=== PATIENT | female | born 1935 | race Caucasian/White ===

== ENCOUNTER 2020-02-25 11:18 | Outpatient (CLI) | payer MEDICARE, SELFPAY ==
--- NOTE | 2020-02-25 11:36 | ECG_ITS ---
NAME OF STUDY: LEXISCAN SESTAMIBI STRESS TEST INDICATION: Chest Pain LEXISCAN STRESS TEST ORDERING PHYSICIAN: Unknown CLINICAL INFORMATION: Unknown INTERPRETATION: 1. The patient was brought to the laboratory where Lexiscan was infused over 20 seconds. The resting blood pressure was 149/72. Maximum blood pressure was 149/72. The resting heart rate was 59 beats per minute. The maximum heart rate is 90 beats per minute. 2. The baseline electrocardiogram reveals sinus rhythm with lack of R waves in leads V1 through V4 and mild left axis deviation 3. With Lexiscan infusion, there were no ST segment changes to suggest ischemia. 4. The patient experienced no symptoms or arrhythmias during the examination. CONCLUSION: 1. Unremarkable Lexiscan infusion. 2. Nuclear imaging to follow. Electronically Signed On 02-25-2020 18:15:14 CDT by Jerome Cook M.D. [id number]
--- NOTE | 2020-02-25 11:36 | NMCV_ITS ---
NM eliz perf SPECT r/s* [id number] Abida So Age: 84 Gender: F : 1935 Exam Date: 02/25/2020 12:35 Ordering Phys: Jovany Loaiza PA-C XX Technologist: TEMI Sanchez Exam Location: [facility] Indications: weakness, HTN, abnormal EKG STRESS TEST Please see separate stress test report in [facility] for full findings IMAGE PROTOCOL Rest/Stress 1 Lexiscan Day Radiopharmaceutical Dose (mCi) Administration Site Administered by Rest: Tc-99m 10.9 IV TEMI Brown Sestamibi Stress:Tc-99m 32.3 IV TEMI Sanchez Sestamijami Rest: 25-Feb-2020 60 Discovery 630 Stress: 25-Feb-2020 45 Discovery 630 0.4mg Lexiscan. Images obtained in supine and prone position. SPECT RESULTS Technical Quality: Good Raw Data Analysis: Normal Image Corrections: Patient motion artifact - partial motion correction applied to prone images Summed Stress Score: 0 Summed Rest Score: 0 Summed Difference Score: 0 PERFUSION FINDINGS SPECT images demonstrate homogeneous tracer distribution throughout the myocardium. FUNCTIONAL RESULTS (calculated via Gated SPECT) Stress Image LV EF (%): 81 Stress EDV (mL):52 TID: 1.04 Stress ESV (mL):10 Rest Image LV EF (%): 81 FUNCTIONAL FINDINGS: There is normal left ventricular systolic function. IMPRESSIONS Myocardial perfusion imaging is normal and low probability for obstructive coronary disease. EKG segment will be documented separately John Pinto MD (Electronically Signed) Final Date: 25 Feb 2020 16:57 S
[2020-02-25 11:40] VITALS: BMI 17.6
--- NOTE | 2020-02-25 13:32 | SUR.PREOP ---
Patient reports no pain or discomfort prior to the start of the procedure.
[2020-02-25] MEDS: regadenoson 0.4 Mg/5 ml Syringe IVP (13:33)
[2020-02-25 13:41] VITALS: BP 146/62; PULSE 89
== END 2020-02-25 11:19 | disposition home or self-care (01) ==
LOC: RAD 11:23
PROVIDERS: PCP Physician Assistant Medical; Visit Provider Physician Assistant Medical
DX: R94.31 Abnormal electrocardiogram [ECG] [EKG] (principal); I10 Essential (primary) hypertension; E78.2 Mixed hyperlipidemia; R53.1 Weakness
CPT/HCPCS: 78452; 93017; A9500; J2785

== ENCOUNTER → 2020-03-05 15:15 | Outpatient (BNVA) | payer MEDICARE, SELFPAY | PROVIDERS: PCP Physician Assistant Medical; Visit Provider Obstetrics & Gynecology | DX: N39.0 Urinary tract infection, site not specified (principal); T83.718A Erosion of other implanted mesh to organ or tissue, initial encounter; X58.XXXA Exposure to other specified factors, initial encounter | CPT/HCPCS: 80053; 81000; 87077; 87086; 87186 ==

== ENCOUNTER → 2020-03-10 13:17 | Outpatient (BNVA) | payer MEDICARE, SELFPAY | PROVIDERS: PCP Physician Assistant Medical; Visit Provider Urology | DX: R33.8 Other retention of urine (principal); N30.80 Other cystitis without hematuria; N81.10 Cystocele, unspecified; T83.718A Erosion of other implanted mesh to organ or tissue, initial encounter; X58.XXXA Exposure to other specified factors, initial encounter; F17.210 Nicotine dependence, cigarettes, uncomplicated | CPT/HCPCS: 81001 ==

== ENCOUNTER 2020-03-31 09:41 | Observation (INO) | payer MEDICARE, SELFPAY ==
[2020-03-22 11:11] VITALS: BMI 15.6
--- NOTE | 2020-03-22 11:14 | ECG_ITS ---
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 Measurements Intervals [place] Rate: 68 P: 71 SD: 187 QRS: -57 QRSD: 78 T: 51 QT: 377 QTc: 401 Interpretive Statements SINUS RHYTHM LEFT ANTERIOR FASCICULAR BLOCK [QRS AXIS <= -45, QR IN I, RS IN II] SEPTAL MYOCARDIAL INFARCTION [40+ ms Q WAVE IN V1/V2], OF INDETERMINATE AGE No previous ECG available for comparison Electronically Signed On 03-22-2020 18:36:31 CDT by Leanna Casper M.D. [id number]
[2020-03-22 11:50] LABS: Basophils % 0.3 %; Eosinophils # 0.1 10^3/uL (0.0-0.8); Eosinophils % 0.6 %; Hematocrit 46.2 % (37.0-47.0); Hemoglobin 14.7 g/dL (11.5-15.3); Lymphocytes % 10.8 %; Mean Corpuscular HGB Conc 31.8 g/dL (30.0-36.0); Mean Corpuscular Hemoglobin 29.7 pg (28.0-34.0); Mean Corpuscular Volume 93.3 fL (81-99); Mean Platelet Volume 11.4 fL (7.4-10.4); Monocytes # 0.6 10^3/uL (0.2-0.9); Monocytes % 6.5 %; Neutrophils # 7.8 10^3/uL (1.8-7.7); Neutrophils % 81.4 %; Nucleated Red Blood Cells % 0 %; Platelet Count 230 10^3/cmm (130-400); Red Blood Count 4.95 10^6/uL (4.1-5.3); Red Cell Distribution Width 13.4 % (12.1-15.1); White Blood Count 9.5 10^3/uL (4.0-10.0)
[2020-03-22 11:59] LABS: Blood Urine 2+ (Negative); Glucose Urine UA Norm (Normal); Ketones Urine Negative (Negative); Protein Urine Neg (Negative); Specific Gravity, Urine 1.015 (1.005-1.030); Urine Appearance Clear (CLEAR); Urine Color Yellow (Yellow); pH Urine 6 (5-7)
[2020-03-22 12:00] LABS: Add Urine Microscopic? YES; Bilirubin Urine Neg (NEGATIVE); Leukocyte Esterase Urine Negative (Negative); Nitrate Urine Negative (Negative); Urobilinogen Urine Norm (Negative)
[2020-03-22 12:01] LABS: Add Urine Culture? No; Bacteria Urine 1+; RBC Urine 0-4 /hpf (0-2); Squamous Epithelial Cell Urine 0-4 (0-5)
[2020-03-22 12:04] LABS: Alanine Aminotransferase 32 U/L (0-33); Albumin Level 4.1 g/dL (3.5-5.2); Alkaline Phosphatase 77 IU/L (35-105); Anion Gap 15.4 (5-19); Aspartate Amino Transferase 30 U/L (0-32); Blood Urea Nitrogen 15 mg/dL (8-23); Calcium 9.5 mg/dL (8.5-10.5); Carbon Dioxide 28 mmol/L (22-29); Chloride 100 mmol/L (98-107); Creatinine Clr Calc Pharmacy 38.1535; Globulin 3.5 g/dL (1.3-4.6); Glucose 101 mg/dL (65-115); Osmolality Calculated 284 mOsm/kg (285-295); Potassium 4.4 mmol/L (3.5-5.1); Sodium 139 mmol/L (136-145); Total Bilirubin 0.4 mg/dL (0.15-1.2); Total Protein 7.6 g/dL (6.6-8.7)
--- NOTE | 2020-03-22 12:18 | P.ANESASSM_ITS ---
Pre-Anesthetic Assessment Pre-Anesthetic Assessment: Height/Weight: Height 1.7 m Weight 45.359 kg Preop Diagnosis: Vaginal mesh erosion Proposed Procedure: Operation Date: 03/24/20 07:00 Proposed Procedures p Bladder mesh excision and repair with allograft [id number] 53091 T83.718A N39.0 N81.10(Not Applicable) - Manolo Smalls MD s Anterior Repair with Midurethral single incision sling(Not Applicable) - Manolo Smalls MD Social: Social History: Tobacco and No alcohol Exam: Pre-Anes Outpt Exam: alert, oriented x 3, clear to auscultation bilaterally and regular rate & rhythm Airway: Submandibular: WNL Cervical ROM: Other (limited) MP: 2 Dentition: False (upper and lower) History/ROS: No significant history except as noted Pulmonary: Pulmonary: SANTILLAN CV/HEM: CV/HEM: HTN : : UTI Hepatic: Hepatic: None reported GI: GI: None reported Metabolic: Metabolic: Thyroid Musc/skel: Musc/skel: Weakness (gen) Neuropsych: Neuropsych: None reported Anesthetic Plan: ASA status: 3 Anesthesia: Anesthesia Evaluation and General Risk of > 500 ml blood loss (7ml/kg in children): Yes, adequate IV access and fluids planned PFSH Anesthesia PFSH: Medical History Chronic UTI Cystitis cystica Family History Sister Lung cancer Hypertension Stroke Thyroid condition Brother Hypertension Stroke Denies family history of Diabetes Clotting disorder Hyperlipidemia Anesthesia complication Bleeding disorder Social History Smoking and tobacco status: current every day smoker cigarettes Packs smoked per day: 0.5 Alcohol intake: never Substance/Drug Use: never Marital status: / Current occupational status: retired Data Anesthesia CBC & Chem 7: 03/22/20 11:30 03/22/20 11:30 Other Labs: Laboratory Results - last 48 hr 03/22/20 03/22/20 03/22/20 11:30 11:30 11:30 WBC 9.5 RBC 4.95 Hgb 14.7 Hct 46.2 MCV 93.3 MCH 29.7 MCHC 31.8 RDW 13.4 Plt Count 230 MPV 11.4 H Neut % (Auto) 81.4 Lymph % (Auto) 10.8 [place] % (Auto) 6.5 Eos % (Auto) 0.6 Baso % (Auto) 0.3 Neut # (Auto) 7.8 H Lymph # (Auto) 1.0 [place] # (Auto) 0.6 Eos # (Auto) 0.1 Baso # (Auto) 0.0 Nucleated RBC % (auto) 0 Nucleated RBCs # 0.0 Sodium 139 Potassium 4.4 Chloride 100 Carbon Dioxide 28 Anion Gap 15.4 BUN 15 Creatinine 0.8 Glucose 101 Calculated Osmolality 284 L Calcium 9.5 Total Bilirubin 0.4 AST 30 ALT 32 Alkaline Phosphatase 77 Total Protein 7.6 Albumin 4.1 Globulin 3.5 Urine Color Yellow Urine Appearance Clear Urine pH 6 Ur Specific [place] 1.015 Urine Protein Neg Urine Glucose (UA) Norm Urine Ketones Negative Urine Blood 2+ H Urine Nitrate Negative Urine Bilirubin Neg Urine Urobilinogen Norm Ur Leukocyte Esterase Negative Urine RBC 0-4 H Urine WBC 5-10 H Ur Squamous Epith Cells 0-4 H Urine Bacteria 1+ H Cardiac Studies: No Data to Display
--- NOTE | 2020-03-22 12:37 | XR_ITS ---
WS: [id number] CHEST 2 VIEWS HISTORY: RESIDENTIAL SMOKER - PREOP COMPARISON: 01/04/2009 Lungs: Marked emphysema and hyperexpansion. Mild biapical pleural thickening. No pneumonia. No pleura l effusion or pneumothorax. Cardiac size: Normal. Mediastinum/Aorta: Mild atherosclerosis aorta. Bones: Osteopenia with increase in thoracic kyphosis. XR/XR chest 2V* 07662 IMPRESSION: Severe chronic emphysema. Partially calcified aorta.
[2020-03-22 13:49] LABS: Thyroid Stimulating Hormone 4.49 uIU/mL (0.27-4.20)
--- NOTE | 2020-03-24 06:15 | PC.NURSE ---
03/24/20 called patient at 0610 patient stated that she was told that insurance had not pre approved the procedure. Patient stated that she was hoping to have the surgery the following week once insurance approved the procedure. OR was informed of the cancellation and Dr. Smalls was informed as well.
[2020-03-31] VITALS (18 sets, daily range): BP systolic 102–141; BP diastolic 42–67; PULSE 50–86; RESP 16–22; TEMP 36.2–37.7; O2SAT 89–99
--- NOTE | 2020-03-31 06:39 | P.ANESUD_ITS ---
Pre-Anesthetic Update Pre-Anesthetic Assessment: Date of Surgery/Procedure: 03/31/20 Preop Sabrina gnosis: Vaginal mesh erosion Proposed Procedure: Operation Date: 03/31/20 07:00 Proposed Procedures p Bladder mesh excision and repair with allograft [id number] 54811 T83.718A N39.0 N81.10(Not Applicable) - Manolo Smalls MD s Anterior Repair with Midurethral single incision sling(Not Applicable) - Amna Smalls MD Any changes to Pre-Anesthetic Assessment?: No Last Intake: Intake Last Liquid Date 03/30/20 Last Liquid Time 19:30 Last Solid Date 03/30/20 Last Solid Time 19:30 Vitals: Temperature 99.1 F 03/31/20 06:20 Temperature Source Temporal Artery S can 03/31/20 06:20 Pulse Rate 69 03/31/20 06:20 Respiratory Rate 16 03/31/20 06:20 Blood Pressure 141/67 03/31/20 06:20 Blood Pressure Sobeida n 91 03/31/20 06:20 Pulse Oximetry 93 03/31/20 06:20 Oxygen Delivery Me thod 03/31/20 06:20 Exam: Pre-Anes Outpt Exam: alert, oriented x 3, clear to auscultation bilaterally and regular rate & rhythm Cardiac Studies: No Data to Display
[2020-03-31] MEDS: sodium chloride 0.9% 1,000 ML 30 ML IV (06:41)
--- NOTE | 2020-03-31 06:43 | W.PM.OPSUD ---
Surgery/Procedure H&P Update DATE OF PROCEDURE: March 31, 2020 DATE H&P PERFORMED: 03/22/20 H&P UPDATE INFORMATION: I have reviewed H&P completed within last 30 days, I have examined patient prior to procedure and No changes to prior documentation PREOP DIAGNOSIS: Vaginal mesh erosion PLANNED PROCEDURE: Operation Date: 03/31/20 07:00 Proposed Procedures p Bladder mesh excision and repair with allograft [id number] 83302 T83.718A N39.0 N81.10(Not Applicable) - Manolo Smalls MD s Anterior Repair with Midurethral single incision sling(Not Applicable) - Manolo Smalls MD
[2020-03-31] MEDS: scopolamine 1.5 Patch 1 PATCH TRANSDERMA (06:45)
[2020-03-31] MEDS: vancomycin 1,000 MG in sodium chloride 0.9% 250 ML 250 MG IV (06:46)
[2020-03-31] MEDS: estrogens Conjugated Cream 30 gm 1 APPLIC VAGINAL (08:47)
--- NOTE | 2020-03-31 09:08 | P.OP_ITS ---
Operative Report Date of procedure: March 31, 2020 Pre-op Diagnosis: Vaginal mesh erosion Post-op diagnosis: same Post-op Findings: mid urethral sling erosion, cystocele stage I Procedure Done: Mesh erosion excision, anterior colporrhaphy augmented with allograft. Specimens removed/disposition: none Surgeon: Manolo Smalls Anesthesia: General Estimated blood loss (mL): 10 IV fluids (mL): 900 Findings: mesh erosion Condition: stable Disposition: PACU Brief History: 84 y/o female with recurrent uti, and siing mesh erosion. Procedure: After obtaining informed consent, the patient was taken to the operating room and placed in the supine position, given general anesthesia, and prepped and draped in sterile fashion. The abdomen, vulva and vagina were prepped and draped in a sterile manner. A time out procedure was performed. The vaginal mucosa was then injected in the midline with normal saline. The anterior vaginal mucosa beneath the midurethra was infiltrated with 0.5% Marcaine with epinephrine. The erode mesh was disected of the mucosa carefuly beneath the midurethra, nearly 1.5 cm length. Careful submucosal dissection was performed bilaterally and the exposed/erode sling mesh was excised. Then the mucose was reaproximated and closed with 2-0 Vicryl. The vaginal mucosa was scored in the midline with the Bovie approximately 1 cm medial to the urethral meatus to 1 cm distal to the vaginal cuff. This vaginal mucosa was then undermined and then incised in the midline with the Metzenbaum scissors. The lateral aspects of the vaginal mucosa were then grasped with the Allis clamps and the vaginal mucosa was then dissected off the underlying fascia with the Metzenbaum scissors. Again, there was noted to be quite a bit of oozing at the incision, which was controlled with cautery. After adequate dissection was performed, bilaterally. The allograt was modified at time of application to fit spacea,3 x 4 cm piece . The allograft placed in front of cystocele and over area of excised erode mesh and implanted with the Basement Membrane facing the vagina mucosa. Suture is placed at distal end of graft and placed towards vaginal cuff. Final suture is placed on proximal portion of the graft to complete the placement overlying the bladder. Then Interrupted vertical mattress sutures of 0 Vicryl were used to elevate the cystocele superiorly. The excessive vaginal mucosa was then trimmed with the Metzenbaum scissors and the vaginal muc estela was then reapproximated in the running interlocking fashion with 2-0 Vicryl. A vaginal pack is placed overnight as postoperative support for the vaginal tissues after graft placement and closure of vaginal incisions. Sponge, lap, needle, and instrument counts were correct times three. The patient was taken to the recovery room, awake and in stable condition.
[2020-03-31] MEDS: ketorolac 30 mg/mL INJ IVP ×3 (11:03→22:01)
[2020-03-31] MEDS: dextrose 5%-lactated ringers 1,000 ML 125 ML IV ×2 (11:03→18:09)
[2020-03-31] MEDS: nitrofurantoin SR (BID) 100 mg Capsule PO (18:09)
[2020-03-31] MEDS: docusate sodium 100 mg Capsule PO (18:09)
[2020-04-01 04:00] VITALS: BP 108/57; PULSE 57; RESP 18; TEMP 36.7; O2SAT 93
[2020-04-01] MEDS: dextrose 5%-lactated ringers 1,000 ML 125 ML IV (04:02)
[2020-04-01] MEDS: ketorolac 30 mg/mL INJ IVP (04:22)
[2020-04-01 04:51] LABS: Hematocrit 35.7 % (37.0-47.0); Hemoglobin 11.3 g/dL (11.5-15.3); Mean Corpuscular HGB Conc 31.7 g/dL (30.0-36.0); Mean Corpuscular Hemoglobin 30.3 pg (28.0-34.0); Mean Corpuscular Volume 95.7 fL (81-99); Mean Platelet Volume 11.8 fL (7.4-10.4); Platelet Count 176 10^3/cmm (130-400); Red Blood Count 3.73 10^6/uL (4.1-5.3); Red Cell Distribution Width 13.6 % (12.1-15.1); White Blood Count 8.1 10^3/uL (4.0-10.0)
[2020-04-01 07:12] VITALS: BP 116/60; PULSE 60; RESP 18; TEMP 36.6; O2SAT 93
[2020-04-01] MEDS: levothyroxine 100 mcg Tablet PO (08:16)
[2020-04-01] MEDS: nitrofurantoin SR (BID) 100 mg Capsule PO (08:16)
[2020-04-01] MEDS: polyethylene glycol 3350 Pkt 17 gm PO (08:16)
[2020-04-01] MEDS: docusate sodium 100 mg Capsule PO (08:16)
--- NOTE | 2020-04-01 09:29 | P.DS_ITS ---
Discharge Providers INFRASTRUCTURE TECHNICIAN Date of Admission: 03/31/20 09:41 Date of Discharge: 04/01/20 Attending Provider at Admission: Manolo Smalls MD Attending Provider at Discharge: Manolo Smalls MD Primary Care Provider: Jovany Loaiza Diagnoses at Discharge Discharge Diagnosis (1) Eroded bladder suspension mesh: Status: Acute Problem details: No evidence of bladder involvement on cystoscopy March 2020. Status post anterior colporrhaphy augmented with allograft and eroded sling mesh excision postoperative day 1. Qualifiers: Encounter type: initial encounter Qualified Code(s): T83.718A - Erosion of other implanted mesh to organ or tissue, initial encounter (2) Chronic UTI: Status: Acute (3) Pelvic organ prolapse quantification stage 1 cystocele: Status: Acute Reason for Visit Reason for Visit: Bladder Mesh Erosion, Recurrent UTI, Bladder Prola Hospital Course Hospital Course: 84-year-old female admitted for an anterior colporrhaphy and excision of eroded sling mesh. Anterior colporrhaphy and excision of eroded mesh was performed without complication. Overnight observation uneventful. She is afebrile and hemodynamically stable. PVR within normal limits. Physical Exam Narrative: EXAM NARRATIVE: GA: Alert and oriented ?3. HEENT: WNL. Heart: Regular rate and rhythm. Lungs: Clear to auscultation bilaterally. Abdomen: Bowel sounds present, nontender, minimal tenderness, incision clean and dry, no redness, pain or edema. 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 Extremities: No edema, no cyanosis, no calves pain. Urinary Catheter Management^: [place]: Cath Placed During This Visit: yes, but has since been removed by the nurse Reason for Continuing Indwelling Catheter: Decision to DC Catheter Urinary Catheter Date of Insertion: 03/31/20 Urinary Catheter Time of Insertion: 07:30 Date Urinary Catheter Removed: 04/01/20 Time Urinary Catheter Discontinued: 06:20 Discharge Data Data Completed and Pending: Completed Studies During Hospitalization Category Date Time Status XR chest 2V* 7104 6 Routine Exams 03/22/20 12:37 Completed Labs from last 24 hours 04/01/20 04:18 WBC 8.1 RBC 3.73 L Hgb 11.3 L Hct 35.7 L MCV 95.7 MCH 30.3 MCHC 31.7 RDW 13.6 Plt Count 176 MPV 11.8 H Vitals: Last Vital Signs Temp 97.9 F 04/01/20 07:12 Pulse 60 04/01/20 07:12 Resp 18 04/01/20 07:12 BP 116/60 04/01/20 07:12 Pulse Ox 93 04/01/20 07:12 Discharge Plan Discharge Patient Disposition: Home, Self-Care Condition: Stable Prescriptions: New ibuprofen 600 mg tablet 600 mg PO Q6H PRN (Reason: fever or pain) Qty: 30 RF: 0 Continued losartan 100 mg tablet 100 mg PO BEDTIME RF: 0 amlodipine 5 mg tablet 5 mg PO BEDTIME RF: 0 levothyroxine [Euthyrox] 75 mcg tablet 100 mcg PO DAILY RF: 0 nitrofurantoin monohyd/m-cryst [Macrobid] 100 mg capsule 100 mg PO BID 12 Days Qty: 60 RF: 2 Miralax 17 gram Powder In Packet 17 g PO DAILY RF: 0 Discharge Orders: Discharge Order (Routine); Ordered 04/01/20 Ordered By: Manolo Smalls Referrals: Manolo Smalls MD [Physician] - 2 weeks Discharge Diet: Regular Discharge Activity: Increase activity as tolerated Patient Instructions: Anterior Vaginal Repair (DC), Bladder Sling Procedures (DC) Activity Restrictions/Additional Instructions: POST-OPERATIVE INSTRUCTIONS FOR VAGINAL PROLAPSE, RECONSTRUCTION AND SLING SURGERY 1. You have just had vaginal surgery for prolapse and reconstruction. It is common to experience vaginal bleeding or spotting and even difficulty in urinary stream or bowel movements for a short period of time. 2. Try to void by the clock every two to three hours (timed voiding) for the next few weeks, and avoid letting your bladder get over distended. 3. Avoid constipation. Stool softeners and fiber twice a day are good ways to minimize constipation and reduce pelvic pain and inflammation. 4. Sitz baths (hot salt water baths) once or twice daily can be used to aid in the vaginal and pelvic discomfort. You can readily obtain a Sitz bath that will sit in your toilet at home at any large pharmacy or medical supply house. 5. Other than the Sitz.bath, nothing inside the vagina. No intercourse until Dr. Smalls performs a follow up exam. 6. No heavy lifting (anything heavier than the phone book) for two to four weeks after the operation. 7. It is very common to have a suprapubic tube inserted to help drain the bladder and help with bladder training after major vaginal or pelvic reconstruction. If you have a suprapubic tube, please refer to the instruction sheet for suprapubic tube care. 8. After discharge from the hospital Dr. Smalls will need to see you for a limited pelvic exam and urine check roughly two to three weeks after the operati on. At this visit, if things look well, some restrictions may be lifted and you will be able to drive and get back to limited physical activity. Many women will need to take a full six weeks off from their jobs or any heavy physical activity until the vaginal area is completed healed. After the first postoperative' visit, Dr. Smalls will then make another appointment to see you four to six weeks after the first visit (roughly two months after the operation) and if complete healing has occurred, unrestricted physical activity, intercourse, swimming and heavy lifting may be undertaken. 9. Remember: itching is very common in the healing phase, and may not necessarily indicate a vaginal infection (such as a yeast infection). For any questions regarding post-operative care, or any concerns that arise, please contact the office Discharge Attestations INFRASTRUCTURE TECHNICIAN Time Spent in Discharge Care*: greater than 30 min Specific Discharge Activities: Specific discharge activities: educating patient Time Spent in Smoking Cessation: Time spent discussing smoking cessation with patient: 3 to 10 minutes Details of Smoking Cessation Education: Patient was counseled regarding smoking cessation, the effect of smoking on healing after surgery and general health. She was informed of the free smoking cessation classes available at [facility] [place] Coding Level of Care Code Acute Cashier Payments Received for Guanako Lemon Diagnoses Eroded bladder suspension mesh T83.718A Encounter type: initial encounter Chronic UTI N39.0 Pelvic organ prolapse quantification stage 1 cystocele N81.10
--- NOTE | 2020-04-01 10:37 | PC.CHAP ---
Pastoral Care Encounter/Spiritual Assessment Type of Contact [] Declined catering staff member visit [] Patient/Family/Request visit [] Outpatient visit [] Follow-up visit [] Physician referral [] Code/Alert [x] Routine visit [] Staff referral [] Actively dying [] Patient sleeping [] Family support [] [] Out of room [] Palliative care [] [] Receiving care in room [] Pre-surgical visit [] Trauma [] Long length of stay [] ICU visit [] Other: Relational/Emotional Strength [x] Patient feels connected with others/family/visitors/staff [] Distress [] Loneliness/isolation [] Abandonment Spirituality of Patient [x] Person of Demetra [] Attends Temple of their [place] [x] Believes in Prayer [] Reads Bible or Spiritism materials [] There are Spiritual issues to be addressed Set Making Machine Operator Interventions [x] Prayer [x] Active listening [x] Non-anxious presence [x] Spiritual/emotional support [] Crisis/trauma care [] Spiritual counseling [] Bereavement support [] Provided bereavement packet [] Provided Bible/devotional materials [] Provided toy/stuffed animal, coloring book to patient or family member [] Provided Communion [] Anointing/[place] [] Salvation [x] Completed spiritual assessment [] Other: Impact on Illness or Injury [] Angry [] Fearful [] Anxious [] Often cries [] Exhaustion [] Unable to work [] Unable to attend restorationist [] Unable to walk/stand [] Unable to read [] Unable to drive [] Unable to eat/drink [] Unable to sleep [] Unable to be with family [] Patient intubated [x] Other: Summary Patient is unable to attend fellowship with the religious, but does biblical study thru Dr. Shelton Leon on tv. Time spent with patient 10 minutes
[2020-04-01 11:29] VITALS: BP 118/62; PULSE 64; RESP 20; TEMP 36.4; O2SAT 95
--- NOTE | 2020-04-01 11:53 | PC.NURSE ---
1115 WENT OVER HOME CARE INSTRUCTIONS WITH PATIENT AND TOLD HER TO LET US KNOW WHEN HER RIDE WAS HERE AND WE WILL HELP TAKE HER OUT. WAS TOLD BY OTHER NURSING STAFF THAT WE DID NOT HAVE TO TAKE ANY VITALS PRIOR TO DISCHARGE.
[2020-04-01 12:50] VITALS: BP 118/62; PULSE 64; RESP 20; TEMP 36.4; O2SAT 95
== END 2020-04-01 12:51 | disposition home or self-care (01) ==
LOC: MEDSURG 09:42
PROVIDERS: Admitting Provider Obstetrics & Gynecology; PCP Physician Assistant Medical; Visit Provider Obstetrics & Gynecology
PROC: (CPT 57288; principal; 2020-03-31 07:00)
PROC: 0JQC0ZZ Repair Pelvic Region Subcutaneous Tissue and Fascia, Open Approach (ICD-10-PCS; CPT 57240; 2020-03-31 07:00)
DX: T83.711A Erosion of implanted vaginal mesh to surrounding organ or tissue, initial encounter (principal); N39.0 Urinary tract infection, site not specified; N81.10 Cystocele, unspecified; I10 Essential (primary) hypertension; F17.210 Nicotine dependence, cigarettes, uncomplicated
CPT/HCPCS: 57240; 57267; 12345; 36415; 51798; 71046; 80053; 81001; 84443; 85025; 85027; 86850; 86900; 93005; 96361; 96365; 96375; C1762; G0378; J1885; J2001; J2405; J2704; J3010; J3370; J3490; J7030; J7050

== ENCOUNTER → 2020-05-11 13:49 | Outpatient (BNVA) | payer MEDICARE, SELFPAY | PROVIDERS: PCP Physician Assistant Medical; Visit Provider Urology | DX: N39.0 Urinary tract infection, site not specified | CPT/HCPCS: 81001 ==

== ENCOUNTER → 2020-07-30 14:08 | Outpatient (BNVA) | payer MEDICARE, SELFPAY | PROVIDERS: PCP Physician Assistant Medical; Visit Provider Obstetrics & Gynecology | DX: Z11.59 Encounter for screening for other viral diseases (principal) | CPT/HCPCS: 87635 ==

== ENCOUNTER 2020-08-04 07:14 | Day surgery (SDC) | payer MEDICARE, SELFPAY ==
--- NOTE | 2020-08-02 09:41 | ANES.PREANE2 ---
Pre-Anesthetic Assessment Pre-Anesthetic Assessment: Height/Weight: Height 1.7 m Preop Diagnosis: Vaginal mesh erosion Proposed Procedure: Operation Date: 08/04/20 09:10 Proposed Procedures p Vaginal Sling Revision 52413 T83.718(Not Applicable) - Manolo Smalls MD Familial anesthetic complications: None Social: Social History: Tobacco Exam: Pre-Anes Outpt Exam: alert, oriented x 3, clear to auscultation bilaterally and regular rate & rhythm Airway: MP: 2 Dentition: False Pulmonary: Pulmonary: SANTILLAN and Sleep apnea (O2 at night 2 L NC) Comments: sinus allergies CV/HEM: CV/HEM: HTN : Comments: Chronic UTI Metabolic: Metabolic: Thyroid Musc/skel: Comments: weakness and is in wheelchair, but can walk at her house Anesthetic Plan: ASA status: 3 Anesthesia: General Risk of > 500 ml blood loss (7ml/kg in children): No PFSH Anesthesia PFSH: Medical History (Updated 08/02/20 @ 10:47 by Manolo Smalls MD) Aftercare following surgery of the genitourinary system Chronic UTI Cystitis cystica Family History Sister Lung cancer Hypertension Stroke Thyroid condition Brother Hypertension Stroke Mother , at age 95 No problems noted. Father , at age 32 Drowning Denies family history of Diabetes Clotting disorder Hyperlipidemia Anesthesia complication Bleeding disorder Social History (Updated 08/02/20 @ 09:27 by Swetha Lunsford, RN) Smoking and tobacco status: current every day smoker cigarettes Packs smoked per day: 0.5 Alcohol intake: never Substance/Drug Use: never Data Anesthesia Cardiac Studies: No Data to Display
[2020-08-02 12:10] VITALS: BMI 16.2
[2020-08-02 12:56] LABS: Add Urine Microscopic? NO
[2020-08-02 13:20] LABS: Bilirubin Urine Neg (Negative); Blood Urine Neg (Negative); Glucose Urine UA Norm (Normal); Ketones Urine Negative (Negative); Leukocyte Esterase Urine Negative (Negative); Nitrate Urine Negative (Negative); Protein Urine Neg (Negative); Urine Appearance Clear (CLEAR); Urine Color Yellow (Yellow); Urobilinogen Urine Norm (Negative); pH Urine 6 (5-7)
[2020-08-04] VITALS (10 sets, daily range): BP systolic 102–142; BP diastolic 40–84; PULSE 60–94; RESP 15–20; TEMP 36.1–36.5; O2SAT 91–98
[2020-08-04] MEDS: scopolamine 1.5 Patch 1 PATCH TRANSDERMA (07:39)
[2020-08-04] MEDS: sodium chloride 0.9% 1,000 ML 30 ML IV (07:44)
--- NOTE | 2020-08-04 08:00 | P.ANESUD_ITS ---
Pre-Anesthetic Update Pre-Anesthetic Assessment: Date of Surgery/Procedure: 08/04/20 Preop Sabrina gnosis: Midurethral sling erosion Proposed Procedure: Operation Date: 08/04/20 08:15 Proposed Procedures p Vaginal Sling Revision 35554 T83.718(Not Applicable) - Manolo Smalls MD Any changes to Pre-Anesthetic Assessment?: No Last Intake: Intake Last Liquid Date 08/03/20 Last Liquid Time 22:00 Last Solid Date 08/03/20 Last Solid Time 22:00 Labs Last 48hrs: Laboratory Results - last 48 hr 08/02/20 08/02/20 12:30 12:30 Urine Color Yellow Urine Appearance Clear Urine pH 6 Ur Specific Gravit y 1.010 Urine Protein Neg Urine Glucose (UA) Norm Urine Ketones Negative Urine Blood Neg Urine Nitrate Negative Urine Bilirubin Neg Urine Urobilinogen Norm Ur Leukocyte Daniela ase Negative Blood Type O Negative Rho(D) Type Negative Antibody Screen Negative Vitals: Temperature 97 F L 08/04/20 07:27 Temperature Source Temporal Artery S can 08/04/20 07:27 Pulse Rate 76 08/04/20 07:27 Respiratory Rate 20 H 08/04/20 07:27 Blood Pressure 137/76 08/04/20 07:27 Blood Pressure Sobeida n 96 08/04/20 07:27 Pulse Oximetry 91 08/04/20 07:27 Oxygen Delivery Me thod 08/04/20 07:41 Exam: Pre-Anes Outpt Exam: alert, oriented x 3, clear to auscultation bilaterally and regular rate & rhythm Cardiac Studies: No Data to Display
--- NOTE | 2020-08-04 08:27 | W.PM.OPSUD ---
Surgery/Procedure H&P Update DATE OF PROCEDURE: August 04, 2020 DATE H&P PERFORMED: 08/02/20 H&P UPDATE INFORMATION: I have reviewed H&P completed within last 30 days, I have examined patient prior to procedure and No changes to prior documentation PREOP DIAGNOSIS: Midurethral sling erosion PLANNED PROCEDURE: Operation Date: 08/04/20 08:15 Proposed Procedures p Vaginal Sling Revision 15900 T83.718(Not Applicable) - Manolo Smalls MD
[2020-08-04] MEDS: vancomycin 1,000 MG in sodium chloride 0.9% 250 ML IV (08:43)
--- NOTE | 2020-08-04 10:34 | PM.OP ---
Operative Report Date of procedure: August 04, 2020 Pre-op Diagnosis: Midurethral sling exposure Post-op diagnosis: same Post-op Findings: Midurethral sling exposure Implants: colpoplast allograft Surgeon: Manolo Smalls M.D. Anesthesia: General Estimated blood loss (mL): 10 IV fluids (mL): 300 Urine output (mL): 100 Complications: none Condition: stable Disposition: PACU Brief History: 84-year-old female with mid urethral exposure due to poor healing after repair of previous exposure. Procedure: After obtaining informed consent, the patient was taken to the operating room and placed in the supine position, given general anesthesia, and prepped and draped in sterile fashion. The abdomen, vulva and vagina were prepped and draped in a sterile manner. A time out procedure was performed. The vaginal mucosa was then injected in the midline with normal saline. The vaginal mucosa defect in the exposed urethral sling was then undermined with the Metzenbaum scissors. The lateral aspects of the vaginal mucosa were then grasped with the Allis clamps and the vaginal mucosa was then dissected off the underlying fascia with the Metzenbaum scissors. After adequate dissection was performed, bilaterally. A Colpoplast allograft was modified at time of application to fit spacea,2 x 2 cm piece . Colpoplast allograft placed in front of mid urethral sling. Suture is placed at distal end of graft and placed overlaid on the sling mesh. Final suture is placed on proximal portion of the graft to complete the placement overlying the defect. Then the vaginal mucosa was then reapproximated in the running interlocking fashion with 2-0 Vicryl. Then the Brewster catheter was removed and cystoscope was inserted. The bladder was filled with sterile water. Complete evaluation of the bladder mucosa was performed noting no lacerations, dimpling, tears, bleeding of the mucosa or muscular layers. Both ureteral orifices were identified. Prompt excretion of urine from both ureteral orifices was noted. Cystoscope was withdrawn. The Brewster catheter was replaced. Excellent hemostasis was obtained. Sponge, lap, needle, and instrument counts were correct times three. tolerated the procedure well and was taken to the recovery room in stable conditions.
--- NOTE | 2020-08-04 10:44 | SUR.PHASEI ---
1043 PATIENT TO PACU FROM OR. RR EVEN AND UNLABORED. ORAL AIRWAY IN PLACE. SPO2 96% ON RA.
--- NOTE | 2020-08-04 10:47 | SUR.PHASEI ---
1045 ORAL AIRWAY REMOVED. SPO2 95% ON RA.
[2020-08-04] MEDS: ibuprofen 800 mg tablet PO (11:31)
--- NOTE | 2020-08-04 12:47 | PC.NURSE ---
PT DRINKING SODA. UNABLE TO VOID YET. FAMILY AT BEDSIDE. CALL LIGHT IN REACH. RAILS UP.
--- NOTE | 2020-08-04 13:40 | ANE.PACU2 ---
Inpatient post-anesthesia follow up: Airway intact: Yes Vital signs: Temperature 97.1 F Pulse Rate 60 Respiratory Rate 18 Blood Pressure 115/70 Pulse Oximetry 91 Oxygen Delivery Me thod Room Air Oxygen Flow Rate 4 Fraction of Inspir ed Oxygen Hydration adequate: Yes Pain level: 2 Mental status: Baseline
--- NOTE | 2020-08-04 13:44 | PC.NURSE ---
SPOKE WITH DR. WELCH CONCERNING PT NOT VOIDING YET. OK FOR PT TO GO HOME . PT INSTRUCTED TO RETURN TO ER IF UNABLE TO VOID.
== END 2020-08-04 13:44 | disposition home or self-care (01) ==
PROVIDERS: PCP Physician Assistant Medical; Visit Provider Obstetrics & Gynecology
PROC: (CPT 57288; principal; 2020-08-04 08:15)
DX: T83.71 Erosion of implanted mesh and other prosthetic materials to surrounding organ or tissue (principal); Y73.8 Miscellaneous gastroenterology and urology devices associated with adverse incidents, not elsewhere classified; Z90.710 Acquired absence of both cervix and uterus; F17.210 Nicotine dependence, cigarettes, uncomplicated; N30.20 Other chronic cystitis without hematuria
CPT/HCPCS: 57287; 12345; 36415; 81003; 86850; 86900; 96365; C1762; J0131; J2370; J2405; J2704; J3010; J3370; J7030; J7050

== ENCOUNTER → 2020-08-31 13:14 | Outpatient (BNVA) | payer MEDICARE, SELFPAY | PROVIDERS: PCP Physician Assistant Medical; Visit Provider Urology | DX: N30.80 Other cystitis without hematuria (principal) | CPT/HCPCS: 81003 ==

== ENCOUNTER → 2020-10-19 14:11 | Outpatient (BNVA) | payer MEDICARE, SELFPAY | PROVIDERS: PCP Physician Assistant Medical; Visit Provider Urology | DX: N30.80 Other cystitis without hematuria (principal) | CPT/HCPCS: 81003 ==

== ENCOUNTER → 2021-04-20 13:07 | Outpatient (BNVA) | payer MEDICARE, SELFPAY | PROVIDERS: PCP Physician Assistant Medical; Visit Provider Urology | DX: N30.80 Other cystitis without hematuria (principal) | CPT/HCPCS: 81003 ==

== ENCOUNTER 2021-07-22 12:11 | Outpatient (CLI) | payer MEDICARE, SELFPAY ==
--- NOTE | 2021-07-22 12:45 | USCV_ITS ---
Abida So Age: 85 Gender: F : 1935 Exam Date: 07/22/2021 12:41 Ordering Phys: Greg Waller MD (Andy) ([email or web address]) Technologist: ALEJANDRA Exam Location: [facility] Indication: RECHECK ON CCA STENOSIS Risk Factors: Previous Vascular Surgery: Right Brachial BP: / Left Brachial BP: / Right Left Velocity (cm/s) Spectral Plaque Velocity (cm/s) Spectral Plaque Syst/Diast Broadening Syst/Diast Broadening 44.70/ 11.20 Hetro Prox CCA 46.20 / 10.40 Hetro 45.40/ 13.10 Hetro Mid CCA 48.20 / 11.10 Hetro 55.90/ 16.40 Hetro Distal CCA 92.40 / 22.50 Hetro 50.50/ 10.10 Hetro Prox ICA 95.90 / 20.10 Hetro 69.90/ 19.10 Hetro Mid ICA 118.40/ 23.70 Hetro 61.40/ 17.20 Hetro Distal ICA 88.80 / 18.90 Hetro 41.10 Hetro ECA 185.80 1.39 ICA/CCA 2.46 Antegrade Vertebral Antegrade 22.30/ 3.30 cm/s 44.40/ 11.20 cm/s Tri Subclavian Bi 83.40 111.3 0 CONCLUSIONS Right ICA stenosis <50%. Extensive calcified atheromatous plaque right carotid bulb/ICA. Left ICA stenosis <50%. Extensive calcified atheromatous plaque left carotid bulb/ICA. Normal antegrade Doppler flow noted in the right vertebral artery. Normal antegrade Doppler flow noted in the left vertebral artery. Velocities are stable since 2019 Enoch Real MD (Electronically Signed) Final Date: 22 July 2021 15:44 S
== END 2021-07-22 12:12 | disposition home or self-care (01) ==
LOC: RAD 12:14
PROVIDERS: PCP Physician Assistant Medical; Visit Provider Thoracic Surgery (Cardiothoracic Vascular Surgery)
DX: I65.23 Occlusion and stenosis of bilateral carotid arteries (principal)
CPT/HCPCS: 93880

== ENCOUNTER → 2022-02-23 12:41 | Outpatient (BNVA) | payer MEDICARE, SELFPAY | PROVIDERS: PCP Physician Assistant Medical; Visit Provider Nurse Practitioner Family | DX: N30.80 Other cystitis without hematuria (principal); N39.0 Urinary tract infection, site not specified | CPT/HCPCS: 81003; 99213 ==

== ENCOUNTER → 2022-04-17 15:06 | Outpatient (BNVA) | payer MEDICARE, SELFPAY | PROVIDERS: PCP Physician Assistant Medical; Visit Provider Urology | DX: N30.80 Other cystitis without hematuria (principal); T83.711A Erosion of implanted vaginal mesh to surrounding organ or tissue, initial encounter | CPT/HCPCS: 52000; 81003; 99213 ==

== ENCOUNTER 2022-06-04 08:50 | Emergency (ER) | payer MEDICARE, SELFPAY ==
[2022-06-04 08:59] VITALS: BP 145/62; PULSE 71; RESP 15; TEMP 36.6; O2SAT 93; BMI 16.7
--- NOTE | 2022-06-04 09:15 | XRR_ITS ---
PROCEDURE INFORMATION: Exam: XR Chest Exam date and time: 06/04/2022 9:29 AM Age: 86 years old Clinical indication: Cough with hemorrhage; Additional info: Hemoptysis TECHNIQUE: Imaging protocol: Radiologic exam of the chest. Views: 2 views. COMPARISON: CR XR chest 2V* [id number] 03/22/2020 12:46 PM FINDINGS: Lungs: Hyperexpanded lungs with emphysematous changes. No significant airspace consolidation concerning for pneumonia. Minimal biapical pulmonary scarring. Pleural spaces: Small left-sided pleural effusion. Heart/Mediastinum: The cardiomediastinal silhouette is within normal limits. Bones/joints: Exaggerated kyphotic curvature of the thoracic spine. XR/XR chest 2V* [id number] IMPRESSION: 1. Small left-sided pleural effusion. 2. Emphysematous disease.
--- NOTE | 2022-06-04 09:32 | W.ED.GENADLT ---
HPI - General Adult General: Chief complaint: General Medical Stated complaint: Spitting up blood Time Seen by Provider: 06/04/22 09:16 History of Present Illness: 86-year-old female presenting today with hemoptysis. Patient notes that she has a chronic daily cough. Cough is every morning. Is still actively smoking. Noted this morning she was coughing and noted flecks of blood in her cough. Prompting her to come into the ED. She has no new unilateral pain or swelling her lower extremities. She has no history of blood clots. She is not on blood thinners. She has a history of chronic UTIs for which she is on suppressive therapy. She denies fevers or chills. She denies nausea or vomiting. No prior history of similar symptoms. No history of cancer. Review of Systems General: Reports: 10 or more systems reviewed and unremarkable except in HPI and below PFSH ED PFSH: Medical History Aftercare following surgery of the genitourinary system Chronic UTI Cystitis cystica Hypertension Hypothyroidism Recurrent UTI Surgical History H/O bladder repair surgery Mesh erosion excision, anterior colporrhaphy augmented with allograft performed by Dr. Smalls at [facility] on 03/31/2020 H/O: hysterectomy 1978 Family History Sister Lung cancer Hypertension Stroke Thyroid condition Ovarian cancer, Onset Age: 64 Brother Hypertension Stroke Mother , at age 95 No problems noted. Father , at age 32 Drowning Denies family history of Colon cancer Diabetes Clotting disorder Hyperlipidemia Breast cancer Anesthesia complication Bleeding disorder Uterine cancer Social History Smoking and tobacco status: current every day smoker cigarettes Packs smoked per day: 0.5 Alcohol intake: never Household members: spouse Marital status: Current occupational status: retired History of recent travel: No Physical Exam Const: COMMON NORMALS: no acute distress, patient oriented x3 and alert GENERAL APPEARANCE: cooperative ORIENTATION/CONSCIOUSNESS: Yes awake, Yes oriented to person, Yes oriented to place and Yes oriented to time HENMT: COMMON NORMALS: normocephalic, atraumatic, external ears normal, Normal external nose present and moist oral mucous membranes HEAD & SCALP: normal to inspection, normocephalic and atraumatic NOSE: Normal external nose present GENERAL EAR: hearing grossly impaired EXTERNAL EAR: Yes external ears normal Eye: COMMON NORMALS: Equal, round and reactive pupils present, EOMs intact bilaterally, conjunctivae normal and no scleral icterus GENERAL EYE: appearance normal, both eyes and all related structures EYELID: eyelids normal CONJUNCTIVA: Yes conjunctivae normal SCLERA: sclerae normal PUPIL: Yes Equal, round and reactive pupils present Neck/C-Spine: COMMON NORMALS: full ROM, supple and no JVD GENERAL: Yes normal visual inspection Lymph: LYMPHATIC: no lymphadenopathy noted and no lymphedema noted Chest: COMMONS NORMALS: normal inspection of the chest Resp: COMMON NORMALS: normal respiratory effort, No retractions and No use of accessory muscles Cardio: COMMON NORMALS: no JVD, regular rate and regular rhythm RATE: regular rate RHYTHM: regular rhythm GI: COMMON NORMALS: Normal to inspection, nondistended, normoactive bowel sounds present : COMMON NORMALS: Yes no CVA tenderness BLADDER/KIDNEY EXAM: Yes no CVA tenderness Back/Pelvis: COMMON NORMALS: no CVA tenderness and thoracic and lumbar spine normal to inspection Extremity: COMMON NORMALS: normal to inspection, full ROM and capillary refill normal GENERAL: Yes normal exam except as noted Neuro: COMMON NORMALS: patient oriented x3, CN's II-XII intact bilaterally, moves all extremities, no focal motor deficits, no sensory deficits noted and gait normal SENSORIUM/ORIENTATION: Yes alert, Yes oriented to person, Yes oriented to place and Yes oriented to time Psych: COMMON NORMALS: mental status grossly normal, Normal thought process present, cooperative and normal affect THOUGHT PROCESS: Normal thought process present Skin: COMMON NORMALS: no rashes or lesions noted and no wounds GENERAL SKIN EXAM: no rashes or lesions noted Course Vital Signs: Vital signs: Vital Signs Temperature 97.9 F 06/04/22 08:59 Pulse Rate 71 06/04/22 08:59 Respiratory Rate 15 06/04/22 08:59 Blood Pressure 145/62 06/04/22 08:59 Pulse Oximetry 93 06/04/22 08:59 Oxygen Delivery Me thod 06/04/22 08:59 [facility] - General Adult Medical Decision Making 86-year-old female presenting today with hemoptysis. Vitals within normal limits. Chest x-ray without evidence of significant abnormality to suggest lung cancer, pneumonia or other significant abnormalities. CBC and CMP are unremarkable. Vital signs are within normal limits. D-dimer less than 1000. Low suspicion for pulmonary embolism. Suspect hemoptysis secondary to bronchitis. Patient is currently everyday smoker. Patient was given strict return precautions and recommended routine outpatient follow-up. Lab Data : 06/04/22 09:42 06/04/22 09:42 Radiology Impressions Chest X-Ray 06/04/22 09:15 IMPRESSION: 1. Small left-sided pleural effusion. 2. Emphysematous disease. Laboratory Results WBC 9.4 10^3/uL (4.0-10.0) 06/04/22 09:42 RBC 4.80 10^6/uL (4.1-5.3) 06/04/22 09:42 Hgb 14.1 g/dL (11.5-15.3) 06/04/22 09:42 Hct 43.1 % (37.0-47.0) 06/04/22 09:42 MCV 89.8 fl (81-99) 06/04/22 09:42 MCH 29.4 pg (28.0-34.0) 06/04/22 09:42 MCHC 32.7 g/dL (30.0-36.0) 06/04/22 09:42 RDW 14.2 % (12.1-15.1) 06/04/22 09:42 Plt Count 177 10^3/cmm (130-400) 06/04/22 09:42 MPV 12.2 fL (7.4-10.4) H 06/04/22 09:42 Neut % (Auto) 82.8 % 06/04/22 09:42 Lymph % (Auto) 9.4 % 06/04/22 09:42 [place] % (Auto) 5.7 % 06/04/22 09:42 Eos % (Auto) 1.5 % 06/04/22 09:42 Baso % (Auto) 0.4 % 06/04/22 09:42 Neut # (Auto) 7.79 10^3/uL (1.8-7.7) H 06/04/22 09:42 Lymph # (Auto) 0.9 10^3/uL (0.8-4.8) 06/04/22 09:42 [place] # (Auto) 0.5 10^3/uL (0.2-0.9) 06/04/22 09:42 Eos # (Auto) 0.1 10^3/uL (0.0-0.8) 06/04/22 09:42 Baso # (Auto) 0.0 10^3/uL (0.0-0.1) 06/04/22 09:42 Nucleated RBC % (auto) 0 % 06/04/22 09:42 Nucleated RBCs # 0.0 /100WBC 06/04/22 09:42 D-Dimer 0.76 ug/mIFEU (0-0.59) H 06/04/22 09:42 Sodium 139 mmol/L (136-145) 06/04/22 09:42 Potassium 4.2 mmol/L (3.5-5.1) 06/04/22 09:42 Chloride 101 mmol/L (98-107) 06/04/22 09:42 Carbon Dioxide 29 mmol/L (22-29) 06/04/22 09:42 Anion Gap 13.2 (5-19) 06/04/22 09:42 BUN 11 mg/dL (8-23) 06/04/22 09:42 Creatinine 0.6 mg/dL (0.5-0.9) 06/04/22 09:42 GFR Calculation Not Reportable 06/04/22 09:42 Glucose 90 mg/dL (65-115) 06/04/22 09:42 Calculated Osmolality 287 mOsm/kg (285-295) 06/04/22 09:42 Calcium 9.5 mg/dL (8.5-10.5) 06/04/22 09:42 Total Bilirubin 0.8 mg/dL (0.15-1.2) 06/04/22 09:42 AST 21 U/L (0-32) 06/04/22 09:42 ALT 12 U/L (0-33) 06/04/22 09:42 Alkaline Phosphatase 87 U/L (35-105) 06/04/22 09:42 Total Protein 7.2 g/dL (6.6-8.7) 06/04/22 09:42 Albumin 4.5 g/dL (3.5-5.2) 06/04/22 09:42 Globulin 2.7 g/dL (1.3-4.6) 06/04/22 09:42 Discharge Plan Discharge Patient Disposition: Home Clinical Impression: Bronchitis Condition: Stable Prescriptions: New azithromycin [Zithromax Z-Mack] 250 mg tablet See Rx Instructions .ROUTE .COMPLEX Qty: 6 0RF Rx Instructions: For 250 mg dose pack: take 500 mg today (day 1), then 250 mg for 4 days (days 2-5) No Action losartan 100 mg tablet 100 mg PO BEDTIME amlodipine 5 mg tablet 5 mg PO BEDTIME levothyroxine [Euthyrox] 75 mcg tablet 100 mcg PO DAILY acetaminophen [Tylenol] 325 mg tablet 325 mg PO .prn cefdinir 300 mg capsule 300 mg PO BID Qty: 28 1RF methenamine hippurate 1 gram tablet 1 g PO BID Qty: 60 12RF Rx Instructions: Take 1000 mg of vitamin C with each dose of methenamine polyethylene glycol 3350 [Miralax] 17 gram Powder In Packet 17 g PO DAILY Discharge Orders: Discharge ED (Routine); Ordered 06/04/22 Ordered By: Heath Mcdowell Referrals: Jovany Loaiza [Primary Care Provider] - Patient Instructions: Opioid Safety Coding Level of Care Code ED Tool Crib Lead for Myag Fwd Exam Comprehensive
[2022-06-04 09:50] LABS: Hematocrit 43.1 % (37.0-47.0); Hemoglobin 14.1 g/dL (11.5-15.3); Lymphocytes % 9.4 %; Mean Corpuscular HGB Conc 32.7 g/dL (30.0-36.0); Mean Corpuscular Hemoglobin 29.4 pg (28.0-34.0); Mean Corpuscular Volume 89.8 fl (81-99); Mean Platelet Volume 12.2 fL (7.4-10.4); Monocytes % 5.7 %; Neutrophils % 82.8 %; Platelet Count 177 10^3/cmm (130-400); Red Cell Distribution Width 14.2 % (12.1-15.1); White Blood Count 9.4 10^3/uL (4.0-10.0)
[2022-06-04 09:51] LABS: Basophils % 0.4 %; Eosinophils # 0.1 10^3/uL (0.0-0.8); Eosinophils % 1.5 %; Lymphocytes # 0.9 10^3/uL (0.8-4.8); Monocytes # 0.5 10^3/uL (0.2-0.9); Neutrophils # 7.79 10^3/uL (1.8-7.7); Nucleated Red Blood Cells % 0 %
[2022-06-04 10:11] LABS: D Dimer 0.76 ug/mIFEU (0-0.59)
[2022-06-04 10:16] LABS: Alanine Aminotransferase 12 U/L (0-33); Albumin Level 4.5 g/dL (3.5-5.2); Alkaline Phosphatase 87 U/L (35-105); Anion Gap 13.2 (5-19); Aspartate Amino Transferase 21 U/L (0-32); Blood Urea Nitrogen 11 mg/dL (8-23); Calcium 9.5 mg/dL (8.5-10.5); Carbon Dioxide 29 mmol/L (22-29); Chloride 101 mmol/L (98-107); Globulin 2.7 g/dL (1.3-4.6); Glucose 90 mg/dL (65-115); Osmolality Calculated 287 mOsm/kg (285-295); Potassium 4.2 mmol/L (3.5-5.1); Sodium 139 mmol/L (136-145); Total Bilirubin 0.8 mg/dL (0.15-1.2); Total Protein 7.2 g/dL (6.6-8.7)
== END 2022-06-04 10:50 | disposition home or self-care (01) ==
PROVIDERS: Emergency Provider Emergency Medicine; PCP Physician Assistant Medical
DX: J40 Bronchitis, not specified as acute or chronic (principal); F17.210 Nicotine dependence, cigarettes, uncomplicated; I10 Essential (primary) hypertension
CPT/HCPCS: 71046; 80053; 85025; 85378; 99284

== ENCOUNTER 2022-09-20 09:52 | Inpatient (IN) | payer MEDICARE, SELFPAY ==
[2022-09-20] VITALS (58 sets, daily range): BP systolic 116–166; BP diastolic 58–78; PULSE 61–67; RESP 15–19; TEMP 36.8; O2SAT 90–95; BMI 16.9
--- NOTE | 2022-09-20 10:30 | W.ED.GENADLT ---
HPI - General Adult General: Chief complaint: General Medical Stated complaint: coughing up blood Time Seen by Provider: 09/20/22 10:30 History of Present Illness: Mr. So is an 86-year-old lady with history of tobaccoism and likely recurrent bronchitis presenting to the emergency department due to hemoptysis. She reports previous course of similar associated with cough and small amounts of blood that transiently improved with antibiotics and steroids. She does note mild chest discomfort and shortness of breath. Additionally notes lower extremity edema. She has various other concerns which appear more chronic in nature and she follows with urology and various other physicians for GI concerns. No other specific changes in health, exacerbating, or alleviating factors identified. Onset (ago): hour(s) Severity: mild and moderate Exacerbating factors: other Associated symptoms: Reports cough, dyspnea and malaise Review of Systems General: Reports: 10 or more systems reviewed and unremarkable except in HPI and below Const: Reports: malaise Resp: Reports: dyspnea PFSH ED PFSH: Medical History Aftercare following surgery of the genitourinary system Chronic UTI Cystitis cystica Hypertension Hypothyroidism Recurrent UTI Surgical History H/O bladder repair surgery Mesh erosion excision, anterior colporrhaphy augmented with allograft performed by Dr. Smalls at [facility] on 03/31/2020 H/O: hysterectomy 1977 Family History Sister Lung cancer Hypertension Stroke Thyroid condition Ovarian cancer, Onset Age: 64 Brother Hypertension Stroke Mother , at age 95 No problems noted. Father , at age 32 Drowning Denies family history of Colon cancer Diabetes Clotting disorder Hyperlipidemia Breast cancer Anesthesia complication Bleeding disorder Uterine cancer Social History Smoking and tobacco status: current every day smoker cigarettes Packs smoked per day: 0.5 Alcohol intake: never Household members: spouse Marital status: Current occupational status: retired History of recent travel: No Physical Exam Const: COMMON NORMALS: alert GENERAL APPEARANCE: cooperative, well developed and ill appearing HENMT: COMMON NORMALS: normocephalic and atraumatic HEAD & SCALP: normocephalic and atraumatic THROAT: posterior oropharynx normal Eye: COMMON NORMALS: conjunctivae normal CONJUNCTIVA: Yes conjunctivae normal SCLERA: sclerae normal Neck/C-Spine: COMMON NORMALS: supple GENERAL: Yes trachea midline Resp: EFFORT & INSPECTION: Yes able to speak in complete sentences AUSCULTATION: rhonchi Cardio: COMMON NORMALS: regular rate and regular rhythm RATE: regular rate RHYTHM: regular rhythm GI: COMMON NORMALS: Soft to palpation PALPATION: Yes Soft to palpation and No Tenderness to palpation present (GI) Extremity: GENERAL: Yes normal exam except as noted and No edema Neuro: COMMON NORMALS: moves all extremities SENSORIUM/ORIENTATION: Yes alert and No Orientation impaired Psych: COMMON NORMALS: mental status grossly normal and Normal thought process present THOUGHT PROCESS: Normal thought process present Course Vital Signs: Vital signs: Vital Signs Temperature 97.8 F 09/22/22 11:29 Pulse Rate 67 09/22/22 11:29 Respiratory Rate 17 09/22/22 11:29 Blood Pressure 161/74 09/22/22 11:29 Pulse Oximetry 93 09/22/22 11:29 Oxygen Delivery Me thod 09/22/22 04:00 MDM - General Adult Medical Decision Making 86-year-old lady presenting to the emergency department due to hemoptysis. Exam as above. EKG notable for atrial fibrillation versus sinus rhythm with marked arrhythmia, no STEMI. Labs notable for no significant hematologic abnormality. Metabolic panel without acute electrolyte derangement. Given symptoms D-dimer was obtained which was elevated. Delta troponin negative. CTA notable for right lobe pulmonary emboli and small left pleural effusion. Given provided clinical history as well as exam I believe that initiation of anticoagulation is appropriate in the inpatient setting. Therapeutic Lovenox ordered. Most likely etiology of patient's symptoms is pulmonary embolism. The results of ED evaluation were discussed with the patient including plan for admission due to requirement for level of care not available if discharged to prevent significant worsening/deterioration. Patient agreeable with plan. Discussed with hospitalist service who was agreeable to admit patient. Medical Records I reviewed the patient's medical records. Lab Data I reviewed the patient's lab results. 09/22/22 05:39 09/22/22 05:39 Radiology Impressions Chest CTA 09/20/22 11:57 IMPRESSION: 1. Segmental branch occlusive thrombi RIGHT upper lobe. No central pulmonary emboli. 2. Very small LEFT pleural effusion. 3. LEFT lower lobe tree-in-bud airspace disease. Typically seen with viral pneumonia or aspiration pneumonia. Laboratory Results WBC 7.8 10^3/uL (4.0-10.0) 09/21/22 05:43 RBC 4.16 10^6/uL (4.1-5.3) 09/21/22 05:43 Hgb 12.6 g/dL (11.5-15.3) 09/21/22 05:43 Hct 38.6 % (37.0-47.0) 09/21/22 05:43 MCV 92.8 fl (81-99) 09/21/22 05:43 MCH 30.3 pg (28.0-34.0) 09/21/22 05:43 MCHC 32.6 g/dL (30.0-36.0) 09/21/22 05:43 RDW 13.7 % (12.1-15.1) 09/21/22 05:43 Plt Count 171 10^3/cmm (130-400) 09/21/22 05:43 MPV 11.1 fL (7.4-10.4) H 09/21/22 05:43 Neut % (Auto) 74.4 % 09/21/22 05:43 Lymph % (Auto) 13.4 % 09/21/22 05:43 [place] % (Auto) 7.3 % 09/21/22 05:43 Eos % (Auto) 4.1 % 09/21/22 05:43 Baso % (Auto) 0.5 % 09/21/22 05:43 Neut # (Auto) 5.77 10^3/uL (1.8-7.7) 09/21/22 05:43 Lymph # (Auto) 1.0 10^3/uL (0.8-4.8) 09/21/22 05:43 [place] # (Auto) 0.6 10^3/uL (0.2-0.9) 09/21/22 05:43 Eos # (Auto) 0.3 10^3/uL (0.0-0.8) 09/21/22 05:43 Baso # (Auto) 0.0 10^3/uL (0.0-0.1) 09/21/22 05:43 Nucleated RBC % (auto) 0 % 09/21/22 05:43 Nucleated RBCs # 0.0 /100WBC 09/21/22 05:43 PT 12.90 SECONDS (12.1-14.9) 09/20/22 11:18 INR 0.94 (0.8-1.2) 09/20/22 11:18 APTT 27.8 SECONDS (23.9-36.7) 09/20/22 11:18 D-Dimer 0.88 ug/mIFEU (0-0.59) H 09/20/22 11:18 Sodium 141 mmol/L (136-145) 09/21/22 05:43 Potassium 3.8 mmol/L (3.5-5.1) 09/21/22 05:43 Chloride 106 mmol/L (98-107) 09/21/22 05:43 Carbon Dioxide 29 mmol/L (22-29) 09/21/22 05:43 Anion Gap 9.8 (5-19) 09/21/22 05:43 BUN 16 mg/dL (8-23) 09/21/22 05:43 Creatinine 0.7 mg/dL (0.5-0.9) 09/21/22 05:43 GFR Calculation Not Reportable 09/21/22 05:43 Glucose 89 mg/dL (65-115) 09/21/22 05:43 Calculated Osmolality 293 mOsm/kg (285-295) 09/21/22 05:43 Calcium 8.9 mg/dL (8.5-10.5) 09/21/22 05:43 Total Bilirubin 0.7 mg/dL (0.15-1.2) 09/20/22 11:18 AST 19 U/L (0-32) 09/20/22 11:18 ALT 9 U/L (0-33) 09/20/22 11:18 Alkaline Phosphatase 81 U/L (35-105) 09/20/22 11:18 Troponin T Baseline 18 ng/L (0-10) H 09/20/22 11:18 Troponin T 120 Minute 18.16 ng/L (0-10) H 09/20/22 13:21 Delta Troponin T 0.16 ABS# (0-10) 09/20/22 13:21 Troponin T Hi Sens 6Hr 21.93 ng/L (0-10) H 09/20/22 17:30 Troponin T Hi Sens 6Hr Delta 3.93 ng/L (0-12) 09/20/22 17:30 NT-Pro-B Natriuret Pep 370 pg/mL (0-450) 09/20/22 11:18 Total Protein 7.0 g/dL (6.6-8.7) 09/20/22 11:18 Albumin 4.3 g/dL (3.5-5.2) 09/20/22 11:18 Globulin 2.7 g/dL (1.3-4.6) 09/20/22 11:18 Vitamin B12 293 pg/mL (232-1245) 09/20/22 17:30 Procalcitonin 0.02 ng/mL (0-0.5) 09/20/22 13:21 TSH 1.80 uIU/mL (0.27-4.20) 09/20/22 17:30 Discharge Plan Discharge Patient Disposition: Placed in Observation Admit Provider: Deisi Loo Clinical Impression: Pulmonary embolism Discharge Diet: Cardiac Discharge Activity: Resume usual activity Coding Level of Care Code ED Certified Nurses Aide for Guanako Lemon
--- NOTE | 2022-09-20 10:41 | ECG_ITS ---
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 Measurements Intervals [place] Rate: 58 P: 0 SC: 0 QRS: 59 QRSD: 81 T: 73 QT: 389 QTc: 384 Interpretive Statements ATRIAL FIBRILLATION WITH SLOW VENTRICULAR RESPONSE ANTEROSEPTAL MYOCARDIAL INFARCTION , OF INDETERMINATE AGE [40+ ms Q WAVE IN V1-V4] Compared to ECG 03/22/2020 12:13:38 Sinus rhythm no longer present Left anterior fascicular block no longer present Myocardial infarct finding still present Electronically Signed On 09-21-2022 9:13:28 PAROLE OR PROBATION OFFICER by Leanna Casper M.D. [id number]
[2022-09-20 11:30] LABS: Basophils % 0.3 %; Eosinophils # 0.1 10^3/uL (0.0-0.8); Eosinophils % 1.3 %; Hemoglobin 14.7 g/dL (11.5-15.3); Lymphocytes # 1.1 10^3/uL (0.8-4.8); Lymphocytes % 11.5 %; Mean Corpuscular HGB Conc 32.7 g/dL (30.0-36.0); Mean Corpuscular Hemoglobin 30.4 pg (28.0-34.0); Mean Platelet Volume 11.1 fL (7.4-10.4); Monocytes # 0.4 10^3/uL (0.2-0.9); Monocytes % 4.7 %; Neutrophils # 7.65 10^3/uL (1.8-7.7); Neutrophils % 81.7 %; Nucleated Red Blood Cells % 0 %; Platelet Count 191 10^3/cmm (130-400); Red Blood Count 4.84 10^6/uL (4.1-5.3); Red Cell Distribution Width 13.6 % (12.1-15.1); White Blood Count 9.4 10^3/uL (4.0-10.0)
[2022-09-20 11:47] LABS: INR 0.94 (0.8-1.2)
[2022-09-20 11:48] LABS: Partial Thromboplastin Time 27.8 SECONDS (23.9-36.7)
[2022-09-20 11:51] LABS: D Dimer 0.88 ug/mIFEU (0-0.59)
[2022-09-20 11:53] LABS: Troponin(5th) Baseline 18 ng/L (0-10)
--- NOTE | 2022-09-20 11:57 | CT_ITS ---
WS: [id number] CT CHEST ANGIOGRAPHY WITH REFORMATS HISTORY: hemoptysis TECHNIQUE: Contiguous axial images are obtained through the chest during arterial injection of intrav enous contrast. Images are reconstructed to evaluate the pulmonary arteries. MIP imaging also reviewe d. All CT scans at [facility] use at least one of these dose optimization techniques: automat ed exposure control; mA and/or kV adjustment per patient size (includes targeted exams where dose is matched to clinical indication); or iterative reconstruction. CONTRAST: Omnipaque 350; 70 mL IV. DLP: 172.97 mGy.cm COMPARISON: None available. Good opacification of the pulmonary arteries. Occlusive pulmonary emboli in several segmental branche s RIGHT upper lobe. No additional pulmonary emboli are identified. Good opacification of the central pulmonary arteries. Moderate cardiomegaly. Moderate atherosclerosis thoracic aorta. Small LEFT pleura l effusion. Mild tree-in-bud opacifications LEFT lower lobe. No mass or nodules. No enlarged lymph nodes. Exophytic 13 mm nodule from the posterior RIGHT kidney. May be a small cyst or complex cysts. Cannot further evaluated on this study. CT/CT angio chest PE protcl [id number] IMPRESSION: 1. Segmental branch occlusive thrombi RIGHT upper lobe. No central pulmonary e mboli. 2. Very small LEFT pleural effusion. 3. LEFT lower lobe tree-in-bud airspace disease. Typically seen with viral pne umonia or aspiration pneumonia.
[2022-09-20 12:03] LABS: Alanine Aminotransferase 9 U/L (0-33); Albumin Level 4.3 g/dL (3.5-5.2); Alkaline Phosphatase 81 U/L (35-105); Anion Gap 13.3 (5-19); Aspartate Amino Transferase 19 U/L (0-32); Blood Urea Nitrogen 18 mg/dL (8-23); Calcium 9.8 mg/dL (8.5-10.5); Carbon Dioxide 29 mmol/L (22-29); Chloride 101 mmol/L (98-107); Globulin 2.7 g/dL (1.3-4.6); Glucose 92 mg/dL (65-115); NT Pro B Type Natriuretic Pept 370 pg/mL (0-450); Osmolality Calculated 290 mOsm/kg (285-295); Potassium 4.3 mmol/L (3.5-5.1); Sodium 139 mmol/L (136-145); Total Bilirubin 0.7 mg/dL (0.15-1.2)
--- NOTE | 2022-09-20 12:41 | ECG_ITS ---
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 Measurements Intervals [place] Rate: 69 P: 107 WI: 197 QRS: 61 QRSD: 105 T: 85 QT: 388 QTc: 418 Interpretive Statements SINUS RHYTHM WITH OCCASIONAL SUPRAVENTRICULAR PREMATURE COMPLEXES ANTEROSEPTAL MYOCARDIAL INFARCTION , OF INDETERMINATE AGE [40+ ms Q WAVE IN V1-V4] Compared to ECG 09/20/2022 11:04:40 Atrial fibrillation no longer present Myocardial infarct finding still present Electronically Signed On 09-21-2022 9:23:15 YARN SPINNER by Leanna Casper M.D. [id number]
[2022-09-20] MEDS: iohexol 350 mg/mL 500 mL Btl (per mL) IV (12:43)
--- NOTE | 2022-09-20 13:38 | PC.PHAR ---
pt states she takes care of her own medications-pt states she never took the lasix 20mg 1/2 tab daily prn filled 06/08/22 60d/s or torsemide 5mg daily prn filled 06/26/22 30d/s-
[2022-09-20 13:50] LABS: Troponin 5 2HR 18.16 ng/L (0-10)
[2022-09-20 14:02] LABS: Troponin 5 2HR Delta 0.16 ABS# (0-10)
[2022-09-20 16:49] LABS: Procalcitonin 0.02 ng/mL (0-0.5)
[2022-09-20] MEDS: amlodipine 5 mg Tablet PO (16:56)
[2022-09-20] MEDS: enoxaparin 60 mg/0.6 mL Syringe 50 MG SUBCUT (16:57)
--- NOTE | 2022-09-20 17:22 | ECG_ITS ---
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 Measurements Intervals Independence Rate: 56 P: 84 ME: 219 QRS: -49 QRSD: 89 T: 52 QT: 411 QTc: 398 Interpretive Statements SINUS BRADYCARDIA WITH FIRST DEGREE AV BLOCK WITH OCCASIONAL SUPRAVENTRICULAR PREMATURE COMPLEXES POSSIBLE RIGHT VENTRICULAR CONDUCTION DELAY [RSR (QR) IN V1/V2] LEFT ANTERIOR FASCICULAR BLOCK [QRS AXIS <= -45, QR IN I, RS IN II] ANTEROSEPTAL MYOCARDIAL INFARCTION , OF INDETERMINATE AGE [40+ ms Q WAVE IN V1-V4] Compared to ECG 09/20/2022 12:57:10 First degree AV block now present Left anterior fascicular block now present Sinus rhythm no longer present Myocardial infarct finding still present Electronically Signed On 09-21-2022 9:22:12 MOVEMENT ASSEMBLER by Leanna Casper M.D. [id number]
[2022-09-20 18:02] LABS: Troponin 5 6HR 21.93 ng/L (0-10)
[2022-09-20 18:04] LABS: Troponin 5 6HR Delta 3.93 ng/L (0-12)
--- NOTE | 2022-09-20 19:31 | P.HP_ITS ---
Providers/Chief Complaint Admitting Physician: Deisi Loo MD Primary Care Provider: Jovany Loaiza Chief Complaint: coughing up blood History of Present Illness Abida So is a 86 year old female who has been experiencing leg cramps for last 2-1/2 months, patient is stating that she was suffering from hemoptysis 2 weeks ago, this time she presented because of worsening of her hemoptysis, she is denying chest pain, fever, nausea, vomiting she is stating that her legs are swollen and she gets dizzy very easily, no recent falls. No previous history of cancer. She takes care of her handicapped . She considers herself very active. She smokes 8 cigarettes a day. Troponin flat, she has been diagnosed with pulmonary embolism Hemodynamically stable, hemoglobin stable, Doing well on room air BNP 370 Review of Systems Const: Reports: body aches and fatigue; Denies: fever(s) or chills Eyes: Denies: change in vision ENMT: Denies: throat pain Card: Denies: chest pain Resp: Reports: dyspnea GI: Denies: abdominal pain : Denies: flank pain Musc: Denies: neck pain Skin/Breast: Denies: rash Neuro: Denies: headache(s) Psych: Reports: anxiety Endo: Denies: polyuria Andres/Lymph: Denies: easy bruising All/Imm: Denies: urticaria Medications/Allergies Home Medications Medication Instructions Recorded Confirmed Last Taken Type amlodipine 5 mg tablet 5 mg PO BID 03/05/20 09/20/22 08/03/20 History losartan 100 mg tablet 100 mg PO BEDTIME 03/05/20 09/20/22 09/19/22 History polyethylene glycol 3350 17 gram 17 g PO BEDTIME 03/31/20 09/20/22 08/02/20 History oral powder packet (Miralax) methenamine hippurate 1 gram tablet 1 g PO BID #60 tabs 04/18/22 09/20/22 Unknown Rx L.acidophil-L.casei-B.bifid-B.longum-FOS 1 cap PO DAILY 09/20/22 09/20/22 Unknown History 2 billion cell-50 mg capsule (Probiotic Blend) ascorbic acid (vitamin C) 500 mg 1,000 mg PO BID 09/20/22 09/20/22 Unknown History tablet (Vitamin C) ergocalciferol (vitamin D2) 1,250 50,000 unit PO .TWICE A MONTH 09/20/22 09/20/22 Unknown History mcg (50,000 unit) capsule levothyroxine 75 mcg tablet 75 mcg PO DAILY@13 09/20/22 09/20/22 Unknown History Allergies Allergy/AdvReac Type Severity Reaction Status Date / Time Cephalosporins Allergy Severe swelling Verified 09/20/22 13:33 of throat ciprofloxacin [From Cipro] Allergy Severe swelling Verified 09/20/22 13:33 of throat and mouth Sulfa (Sulfonamide Allergy Severe swelling Verified 09/20/22 13:33 Antibiotics) of throat cefdinir Allergy Unknown Verified 09/20/22 13:33 nitrofurantoin Allergy Unknown Verified 09/20/22 13:33 [From Macrobid] PFSH Acute PFSH: Medical History Aftercare following surgery of the genitourinary system Chronic UTI Cystitis cystica Hypertension Hypothyroidism Recurrent UTI Surgical History H/O bladder repair surgery Mesh erosion excision, anterior colporrhaphy augmented with allograft performed by Dr. Smalls at [facility] on 03/31/2020 H/O: hysterectomy 1978 Family History Sister Lung cancer Hypertension Stroke Thyroid condition Ovarian cancer, Onset Age: 64 Brother Hypertension Stroke Mother , at age 95 No problems noted. Father , at age 32 Drowning Denies family history of Colon cancer Diabetes Clotting disorder Hyperlipidemia Breast cancer Anesthesia complication Bleeding disorder Uterine cancer Social History Smoking and tobacco status: current every day smoker cigarettes Packs smoked per day: 0.5 Alcohol intake: never Household members: spouse Marital status: Current occupational status: retired History of recent travel: No Vitals/I&O/Wt Last Vital Signs Temp 98.3 F 09/20/22 10:15 Pulse 66 09/20/22 11:20 Resp 15 09/20/22 10:15 BP 159/62 09/20/22 16:20 Pulse Ox 93 09/20/22 15:20 O2 Del Method 09/20/22 16:21 Weight last 48 hrs Weight 48.988 kg Weight 48.988 kg Physical Exam Narrative: Patient is doing well on room air Hemodialysis able Awake and alert Pleasant cooperative Hard of hearing Nonfocal neuro exam S1, S2 Abdomen soft Lower extremity no edema Mild cough tenderness noted on left side Awake and alert EOMI, PERRLA No audible stridor or wheezing Data 09/20/22 11:18 09/20/22 11:18 A&P Assessment and plan (1) Pulmonary embolism: Plan Segmental occlusive right PE Check venous Doppler to rule out DVT Start patient on therapeutic Lovenox and at time of discharge she will need Eliquis 10 mg for 7 days and then 5 mg twice a day, no previous history of cancer She considers herself fairly active PE would be considered unprovoked, she would need lifelong anticoagulating therapy for now Requested echo she does not show any signs of hemodynamic instability BNP is normal Troponins are not showing significant delta Cardiac diet Continue losartan and levothyroxine Patient is endorsing dizziness and leg cramps we will check B12 level, PT in the morning Attestations Medical Necessity Statement*: Anticipating discharge within 48 hours Time Spent in Patient Care: 40 Coding Level of Care Code Acute Rig Mechanic for Guanako Lemon Diagnoses Pulmonary embolism I26.99
--- NOTE | 2022-09-20 20:16 | USCV_ITS ---
Abida So Age: 86 Gender: F : 1935 Exam Date: 09/20/2022 21:58 Ordering Phys: John Parsons MD Technologist: BELTRAN [place] [facility] [place]: pulmonary embolus. No history of cardiac intervention per patient. BP: 116 / 58 HR: 81 Rhythm: Sinus Technical Quality: Good MEASUREMENTS (Male / Female) Normal Values 2D ECHO LV Diastolic Diameter PLAX 3.6 cm 4.2 - 5.9 / 3.9 - 5.3 cm LV Systolic Diameter PLAX 2.1 cm IVS Diastolic Thickness 1.1 cm 0.6 - 1.0 / 0.6 - 0.9 cm IVS Systolic Thickness 1.5 cm LVPW Diastolic Thickness 1.3 cm 0.6 - 1.0 / 0.6 - 0.9 cm LVPW Systolic Thickness 1.6 cm LVOT Diameter 1.8 cm LV Ejection Fraction 2D Teich 73.6 % LV Ejection Fraction MOD 2C 70.6 % LV Ejection Fraction 2C AL 71.8 % LA Diameter 3.1 cm LA Width 3.6 cm LA Height 4.5 cm RA Width 3.9 cm RA Height 4.2 cm Aorta at Sinotubular Diameter 3.1 cm IVC Diameter 1.4 cm M-MODE Aortic Annulus Diameter 3.2 cm LA Ao Ratio MM 0.9 MV E Point Septal Separation 0.4 cm DOPPLER AV Peak Velocity 120.0 cm/s LVOT Peak Velocity 111.0 cm/s AV Area Cont Eq vti 1.8 cm squared AV Area Cont Eq pk 2.3 cm squared MV Area PHT 3.5 cm squared Mitral E to A Ratio 1.4 MV E' Velocity 49.0 cm/s Mitral E to MV E' Ratio 10.6 Mitral E to LV E' Lateral Ratio 8.4 Mitral E to LV E' Septal Ratio 14.5 TR Peak Velocity 288.3 cm/s TR Peak Gradient 33.2 mmHg TV Peak E Velocity 51.0 cm/s Right Atrial Pressure 5.0 mmHg Pulmonary Artery Systolic Pressu 38.2 mmHg PV Peak Velocity 115.0 cm/s RV Acceleration Time 0.1 s RV Ejection Time 0.5 s RV AcT/ET 0.2 FINDINGS Left Ventricle Left ventricle is normal in size. LV systolic function is normal with EF 55 to 60%. No regional wall motion abnormalities are seen. Right Ventricle Normal in size and function Right Atrium Normal in size Left Atrium Normal in size Mitral Valve Structurally normal mitral valve. Mild mitral regurgitation. Aortic Valve Aortic valve is thickened. No significant stenosis Tricuspid Valve Mild tricuspid regurgitation. RVSP is 35-40mmHg. This is consistent with mild pulmonary hypertension. Pulmonic Valve Not well visualized. Moderate pulmonic regurgitation Pericardium Normal Aorta Normal in size IVC Appears to be normal CONCLUSIONS LV systolic function is normal with EF 55 to 60%. Mild mitral regurgitation Mild tricuspid regurgitation Mild pulmonary hypertension Moderate pulmonic regurgitation. No comparison studies are available Bruno Palencia MD (Electronically Signed) Final Date: 21 September 2022 11:59 S
--- NOTE | 2022-09-20 20:16 | USCV_ITS ---
Abida So Age: 86 Gender: F : 1935 Exam Date: 09/20/2022 21:31 Ordering Phys: John Parsons MD Technologist: BELTRAN [place] [facility] [place]: pulmonary embolus. assess for DVT. HISTORY: pulmonary embolus. assess for DVT. PROCEDURES: Venous duplex imaging was performed in bilateral lower extremities. The following venous structures were evaluated: common femoral vein, profunda vein, proximal portion of the greater saphenous vein, superficial femoral vein, and the popliteal vein. In addition, the posterior tibial and peroneal veins were evaluated. FINDINGS: Normal 2-D Doppler and augmentation and compressibility throughout the lower extremity venous structures. Additional imaging through the proximal calf veins also reveals no thrombus. Limited evaluation of the greater saphenous vein is patent with no thrombus. CONCLUSIONS No DVT bilateral lower extremities. Dr. Chantell Malloy DO (Electronically Signed) Final Date: 22 September 2022 08:31 S
[2022-09-20] MEDS: polyethylene glycol 3350 Pkt 17 gm PO (20:44)
[2022-09-20 21:11] LABS: Vitamin B12 293 pg/mL (232-1245)
[2022-09-20] MEDS: losartan 50 mg Tablet 100 MG PO (21:22)
[2022-09-21] VITALS (10 sets, daily range): BP systolic 131–162; BP diastolic 59–90; PULSE 54–71; RESP 17–19; TEMP 36.3–37.1; O2SAT 90–92
[2022-09-21] MEDS: enoxaparin 60 mg/0.6 mL Syringe 50 MG SUBCUT ×2 (03:21→18:25)
[2022-09-21 06:04] LABS: Basophils % 0.5 %; Eosinophils # 0.3 10^3/uL (0.0-0.8); Eosinophils % 4.1 %; Hematocrit 38.6 % (37.0-47.0); Hemoglobin 12.6 g/dL (11.5-15.3); Lymphocytes % 13.4 %; Mean Corpuscular HGB Conc 32.6 g/dL (30.0-36.0); Mean Corpuscular Hemoglobin 30.3 pg (28.0-34.0); Mean Corpuscular Volume 92.8 fl (81-99); Mean Platelet Volume 11.1 fL (7.4-10.4); Monocytes # 0.6 10^3/uL (0.2-0.9); Monocytes % 7.3 %; Neutrophils # 5.77 10^3/uL (1.8-7.7); Neutrophils % 74.4 %; Nucleated Red Blood Cells % 0 %; Platelet Count 171 10^3/cmm (130-400); Red Blood Count 4.16 10^6/uL (4.1-5.3); Red Cell Distribution Width 13.7 % (12.1-15.1); White Blood Count 7.8 10^3/uL (4.0-10.0)
[2022-09-21 06:30] LABS: Anion Gap 9.8 (5-19); Blood Urea Nitrogen 16 mg/dL (8-23); Calcium 8.9 mg/dL (8.5-10.5); Carbon Dioxide 29 mmol/L (22-29); Chloride 106 mmol/L (98-107); Glucose 89 mg/dL (65-115); Osmolality Calculated 293 mOsm/kg (285-295); Potassium 3.8 mmol/L (3.5-5.1); Sodium 141 mmol/L (136-145)
[2022-09-21] MEDS: pantoprazole DR 40 mg Tablet PO (08:43)
[2022-09-21] MEDS: amlodipine 5 mg Tablet PO ×2 (08:43→18:28)
--- NOTE | 2022-09-21 10:48 | PC.CHAP ---
Pastoral Care Encounter/Spiritual Assessment Type of Contact [] Declined hand printed circuit board assembler visit [] Patient/Family/Request visit [] Outpatient visit [] Follow-up visit [] Physician referral [] Code/Alert [x] Routine visit [] Staff referral [] Actively dying [] Patient sleeping [] Family support [] [] Out of room [] Palliative care [] [] Receiving care in room [] Pre-surgical visit [] Trauma [] Long length of stay [] ICU visit [] Other: Relational/Emotional Strength [x] Patient feels connected with others/family/visitors/staff [] Distress [] Loneliness/isolation [] Abandonment Spirituality of Patient [x] Person of Demetra [] Attends Sabianism of their Demetra []x Believes in Prayer [] Reads Bible or Sikh materials [] There are Spiritual issues to be addressed Facility Examiner Interventions [x] Prayer [x] Active listening [x] Non-anxious presence [] Spiritual/emotional support [] Crisis/trauma care [] Spiritual counseling [] Bereavement support [] Provided bereavement packet [] Provided Bible/devotional materials [] Provided toy/stuffed animal, coloring book to patient or family member [] Provided Communion [] Anointing/Bradley [] Salvation [x] Completed spiritual assessment [] Other: Impact on Illness or Injury [] Angry [] Fearful [] Anxious [] Often cries [] Exhaustion [] Unable to work [] Unable to attend pentecostalism [] Unable to walk/stand [] Unable to read [] Unable to drive [] Unable to eat/drink [] Unable to sleep [] Unable to be with family [] Patient intubated [] Other: Summary Time spent with patient 15 min
--- NOTE | 2022-09-21 12:44 | PC.NURSE ---
Ordered per Dr. Loo verbal order to take with hippurate
[2022-09-21] MEDS: ascorbic acid 500 mg Tablet 1000 MG PO ×2 (13:24→18:27)
[2022-09-21] MEDS: levothyroxine 75 mcg Tablet PO (13:25)
[2022-09-21] MEDS: NON-FORMULARY MEDICATION (Methenamine Hippurate 1 gram tablet) 1 EACH PO ×2 (13:26→18:27)
[2022-09-21] MEDS: sodium chloride 0.9% 1,000 ML 100 ML IV ×2 (13:32→23:42)
--- NOTE | 2022-09-21 14:39 | P.PN_ITS ---
Subjective Subjective: Seen this morning. No acute events overnight. Echo is still pending. Venous Dopplers are pending. Daughter is at bedside. Patient states that she is a smoker. She has a family history of lung cancer and stomach cancer in both her sisters who have both at this point. She denies any recent active weight loss however says she is always been tiny. She says that she is pretty active at home and helps her as well however she is weak and she stumbles. She has to sit down repeatedly due to generalized fatigue and weakness. She feels very worn out. When going to the bathroom this morning she stumbled. She reports dizziness and lightheadedness at times. She says at times her legs swell up towards the end of the day. Vitals/I&O/Wt Last Vital Signs Temp 98.7 F 09/21/22 12:00 Pulse 68 09/21/22 12:00 Resp 18 09/21/22 07:45 BP 138/61 09/21/22 12:00 Pulse Ox 90 09/21/22 12:00 O2 Del Method 09/21/22 03:32 09/20/22 09/21/22 09/21/22 22:59 06:59 14:59 Intake Total 0 / 0 120 / 120 260 / 260 Output Total 200 / 200 Balance 0 / 0 -80 / -80 260 / 260 Weight last 48 hrs Weight 48.988 kg Weight 48.988 kg Physical Exam Narrative: Patient is doing well on room air frail-appearing female Hemodialysis able Awake and alert Pleasant cooperative Hard of hearing Nonfocal neuro exam S1, S2 Abdomen soft Lower extremity no edema Mild cough tenderness noted on left side Awake and alert EOMI, PERRLA No audible stridor or wheezing Data 09/21/22 05:43 09/21/22 05:43 A&P Assessment and plan (1) Pulmonary embolism: Plan Segmental occlusive right PE Hypertension 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 Follows Dr. 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 Will place on B12 tablets daily. Physical therapy assessment Echo reviewed. Moderate pulmonary hypertension present. EF normal 55%. No gross wall motion abnormalities. Venous Dopplers Discharge planning pending based on physical therapy assessment. Attestations Medical Necessity Statement*: Anticipating discharge within 48 hours Time Spent in Patient Care: 40 Coding Level of Care Code Acute Cancer Program Coordinator for Guanako Lemon Diagnoses Pulmonary embolism I26.99
[2022-09-21] MEDS: losartan 50 mg Tablet 100 MG PO (20:28)
[2022-09-21] MEDS: polyethylene glycol 3350 Pkt 17 gm PO (20:29)
[2022-09-22] VITALS: BP 134/66; PULSE 55; RESP 19; TEMP 36.7; O2SAT 91
[2022-09-22 04:00] VITALS: BP 152/80; PULSE 78; RESP 19; TEMP 36.7; O2SAT 92
[2022-09-22] MEDS: enoxaparin 60 mg/0.6 mL Syringe 50 MG SUBCUT (04:02)
[2022-09-22 04:46] VITALS: BP 144/68; BP 152/74; BP 152/80; PULSE 66; PULSE 78; PULSE 81
[2022-09-22 05:53] LABS: Basophils % 0.4 %; Eosinophils # 0.3 10^3/uL (0.0-0.8); Eosinophils % 4.7 %; Hematocrit 38.3 % (37.0-47.0); Hemoglobin 12.4 g/dL (11.5-15.3); Lymphocytes # 1.1 10^3/uL (0.8-4.8); Lymphocytes % 14.9 %; Mean Corpuscular HGB Conc 32.4 g/dL (30.0-36.0); Mean Corpuscular Hemoglobin 29.8 pg (28.0-34.0); Mean Corpuscular Volume 92.1 fl (81-99); Monocytes # 0.5 10^3/uL (0.2-0.9); Monocytes % 6.4 %; Neutrophils # 5.27 10^3/uL (1.8-7.7); Neutrophils % 73.3 %; Nucleated Red Blood Cells % 0 %; Platelet Count 168 10^3/cmm (130-400); Red Blood Count 4.16 10^6/uL (4.1-5.3); Red Cell Distribution Width 13.5 % (12.1-15.1); White Blood Count 7.2 10^3/uL (4.0-10.0)
[2022-09-22 06:23] LABS: Anion Gap 9.6 (5-19); Blood Urea Nitrogen 10 mg/dL (8-23); Calcium 8.1 mg/dL (8.5-10.5); Carbon Dioxide 27 mmol/L (22-29); Chloride 110 mmol/L (98-107); Glucose 90 mg/dL (65-115); Osmolality Calculated 295 mOsm/kg (285-295); Potassium 3.6 mmol/L (3.5-5.1); Sodium 143 mmol/L (136-145)
[2022-09-22 08:00] VITALS: BP 161/74; PULSE 67; RESP 17; TEMP 36.6; O2SAT 93
--- NOTE | 2022-09-22 08:40 | P.DS_ITS ---
Discharge Providers Date of Admission: 09/21/22 14:58 Date of Discharge: September 22, 2022 Attending Provider at Admission: Deisi Loo MD Attending Provider at Discharge: Deisi Loo MD Primary Care Provider: Jovany Loaiza Diagnoses at Discharge Discharge Diagnosis (1) Pulmonary embolism: Status: Acute Reason for Visit Reason for Visit: coughing up blood Brief History: As per Dr. Issa Tai Jacob So is a 86 year old female who has been experiencing leg cramps for last 2-1/2 months, patient is stating that she was suffering from hemoptysis 2 weeks ago, this time she presented because of worsening of her hemoptysis, she is denying chest pain, fever, nausea, vomiting she is stating that her legs are swollen and she gets dizzy very easily, no recent falls.? No previous history of cancer.? She takes care of her handicapped .? She considers herself very active.? She smokes 8 cigarettes a day. Troponin? flat, she has been diagnosed with pulmonary embolism Hemodynamically stable, hemoglobin stable, Doing well on room air BNP 370 Hospital Course Hospital Course Patient admitted for segmental occlusive right PE. DVT rule out by Dopplers. Patient placed on Lovenox during hospital stay. She also had mild dizziness and was dehydrated at admission. Given IV fluids. She felt better thereafter. Echo reviewed moderate pulmonary hypertension present, EF 55% no gross wall motion abnormalities. Patient seen by physical therapy. 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 She will be given follow-up with Dr. Bautista as an outpatient for hematology. All questions answered. Both of her sons were at bedside at time of discharge along with charge nurse. Patient appeared well and was excited to go home. She was counseled on not to stop her blood thinner or missed any doses. She is to follow-up with primary care doctor. Discharged home in stable condition. Physical Exam Narrative: Patient is doing well on room air frail-appearing female Awake and alert Pleasant cooperative Hard of hearing Nonfocal neuro exam S1, S2 Abdomen soft Lower extremity no edema Mild cough tenderness noted on left side Awake and alert EOMI, PERRLA No audible stridor or wheezing Discharge Data Studies Completed and Pending Completed Studies During Hospitalization Category Date Time Status CTA chest [CT angio chest PE protcl [id number]] Stat Cat Scan 09/20/22 11:57 [place] [id number] Routine Ultrasound 09/20/22 20:16 Completed CV. echo complete* [id number] Routine Ultrasound 09/20/22 20:16 Completed Radiology Impressions Chest CTA 09/20/22 11:57 IMPRESSION: 1. Segmental branch occlusive thrombi RIGHT upper lobe. No central pulmonary emboli. 2. Very small LEFT pleural effusion. 3. LEFT lower lobe tree-in-bud airspace disease. Typically seen with viral pneumonia or aspiration pneumonia. Laboratory Results WBC 7.2 10^3/uL (4.0-10.0) 09/22/22 05:39 RBC 4.16 10^6/uL (4.1-5.3) 09/22/22 05:39 Hgb 12.4 g/dL (11.5-15.3) 09/22/22 05:39 Hct 38.3 % (37.0-47.0) 09/22/22 05:39 MCV 92.1 fl (81-99) 09/22/22 05:39 MCH 29.8 pg (28.0-34.0) 09/22/22 05:39 MCHC 32.4 g/dL (30.0-36.0) 09/22/22 05:39 RDW 13.5 % (12.1-15.1) 09/22/22 05:39 Plt Count 168 10^3/cmm (130-400) 09/22/22 05:39 MPV 11.0 fL (7.4-10.4) H 09/22/22 05:39 Neut % (Auto) 73.3 % 09/22/22 05:39 Lymph % (Auto) 14.9 % 09/22/22 05:39 [place] % (Auto) 6.4 % 09/22/22 05:39 Eos % (Auto) 4.7 % 09/22/22 05:39 Baso % (Auto) 0.4 % 09/22/22 05:39 Neut # (Auto) 5.27 10^3/uL (1.8-7.7) 09/22/22 05:39 Lymph # (Auto) 1.1 10^3/uL (0.8-4.8) 09/22/22 05:39 [place] # (Auto) 0.5 10^3/uL (0.2-0.9) 09/22/22 05:39 Eos # (Auto) 0.3 10^3/uL (0.0-0.8) 09/22/22 05:39 Baso # (Auto) 0.0 10^3/uL (0.0-0.1) 09/22/22 05:39 Nucleated RBC % (auto) 0 % 09/22/22 05:39 Nucleated RBCs # 0.0 /100WBC 09/22/22 05:39 PT 12.90 SECONDS (12.1-14.9) 09/20/22 11:18 INR 0.94 (0.8-1.2) 09/20/22 11:18 APTT 27.8 SECONDS (23.9-36.7) 09/20/22 11:18 D-Dimer 0.88 ug/mIFEU (0-0.59) H 09/20/22 11:18 Sodium 143 mmol/L (136-145) 09/22/22 05:39 Potassium 3.6 mmol/L (3.5-5.1) 09/22/22 05:39 Chloride 110 mmol/L (98-107) H 09/22/22 05:39 Carbon Dioxide 27 mmol/L (22-29) 09/22/22 05:39 Anion Gap 9.6 (5-19) 09/22/22 05:39 BUN 10 mg/dL (8-23) 09/22/22 05:39 Creatinine 0.7 mg/dL (0.5-0.9) 09/22/22 05:39 GFR Calculation Not Reportable 09/22/22 05:39 Glucose 90 mg/dL (65-115) 09/22/22 05:39 Calculated Osmolality 295 mOsm/kg (285-295) 09/22/22 05:39 Calcium 8.1 mg/dL (8.5-10.5) L 09/22/22 05:39 Total Bilirubin 0.7 mg/dL (0.15-1.2) 09/20/22 11:18 AST 19 U/L (0-32) 09/20/22 11:18 ALT 9 U/L (0-33) 09/20/22 11:18 Alkaline Phosphatase 81 U/L (35-105) 09/20/22 11:18 Troponin T Baseline 18 ng/L (0-10) H 09/20/22 11:18 Troponin T 120 Minute 18.16 ng/L (0-10) H 09/20/22 13:21 Delta Troponin T 0.16 ABS# (0-10) 09/20/22 13:21 Troponin T Hi Sens 6Hr 21.93 ng/L (0-10) H 09/20/22 17:30 Troponin T Hi Sens 6Hr Delta 3.93 ng/L (0-12) 09/20/22 17:30 NT-Pro-B Natriuret Pep 370 pg/mL (0-450) 09/20/22 11:18 Total Protein 7.0 g/dL (6.6-8.7) 09/20/22 11:18 Albumin 4.3 g/dL (3.5-5.2) 09/20/22 11:18 Globulin 2.7 g/dL (1.3-4.6) 09/20/22 11:18 Vitamin B12 293 pg/mL (232-1245) 09/20/22 17:30 Procalcitonin 0.02 ng/mL (0-0.5) 09/20/22 13:21 TSH 1.80 uIU/mL (0.27-4.20) 09/20/22 17:30 Vitals Last Vital Signs Temp 98.1 F 09/22/22 04:00 Pulse 81 09/22/22 04:46 Resp 19 H 09/22/22 04:00 BP 144/68 09/22/22 04:46 Pulse Ox 92 09/22/22 04:00 O2 Del Method 09/22/22 04:00 Discharge Plan Discharge Patient Disposition: Home Condition: Stable Prescriptions: New pantoprazole 40 mg Tablet,Delayed Release (Dr/Ec) 40 mg PO DAILY 30 Days Qty: 30 0RF Eliquis DVT-PE Treat 30D Start 5 mg (74 tabs) tablets,dose pack See Rx Instructions .ROUTE .COMPLEX Qty: 74 0RF Rx Instructions: orally per package directions Continued losartan 100 mg tablet 100 mg PO BEDTIME amlodipine 5 mg tablet 5 mg PO BID methenamine hippurate 1 gram tablet 1 g PO BID Qty: 60 12RF Rx Instructions: Take 1000 mg of vitamin C with each dose of methenamine polyethylene glycol 3350 [Miralax] 17 gram Powder In Packet 17 g PO BEDTIME levothyroxine 75 mcg tablet 75 mcg PO DAILY@13 Vitamin C 500 mg Tablet 1,000 mg PO BID ergocalciferol (vitamin D2) 1,250 mcg (50,000 unit) capsule 50,000 unit PO .TWICE A MONTH Probiotic Blend 2 billion cell-50 mg Capsule 1 cap PO DAILY Rx Instructions: give with meal/snack Discharge Orders: Discharge Order (Routine); Ordered 09/22/22 Ordered By: Deisi Loo Referrals: Jovany Loaiza [Primary Care Provider] - 4-7 days (Due to the holiday we are unable to schedule your appointment. Please call SundaySeptember 26 to schedule your appointment.) Shelton Bautista MD [Hospitalist] - 2 weeks (New PE, unprovoked Due to holiday we are unable to schedule your appointment. Please call the office SundaySeptember 26 to schedule your appointment.) Discharge Diet: Cardiac Discharge Activity: Resume usual activity Patient Instructions: Pantoprazole (By mouth), Apixaban (By mouth) (Eliquis), Pulmonary Embolism (DC), Opioid Safety Discharge Attestations Time Spent in Discharge Care*: less than 30 min Quality Metrics Clinical Quality Measures [ No reported AMI, CVA or VTE this stay] Coding Level of Care Code Acute Chg FW DC note Diagnoses Pulmonary embolism I26.99
[2022-09-22] MEDS: NON-FORMULARY MEDICATION (Methenamine Hippurate 1 gram tablet) 1 EACH PO (09:09)
[2022-09-22] MEDS: ascorbic acid 500 mg Tablet 1000 MG PO (09:10)
[2022-09-22] MEDS: pantoprazole DR 40 mg Tablet PO (09:10)
[2022-09-22] MEDS: amlodipine 5 mg Tablet PO (09:10)
--- NOTE | 2022-09-22 11:21 | PC.NURSE ---
Upon d/c instructions, [facility] called stating that her insurance would not cover Eliquis. I spoke with Dr. Loo and she states she would prefer patient take Eliquis and requested this be called to [facility]. I called and provided a verbal order to Silvia in [facility]. I informed patient's son, Jesus, of this and he states he will pick it up before they leave.
[2022-09-22 11:29] VITALS: BP 161/74; PULSE 67; RESP 17; TEMP 36.6; O2SAT 93
--- NOTE | 2022-09-22 11:33 | PC.NURSE ---
Reviewed d/c education with patient and her sons, Josiah and Jesus. Provided education on Protonix and Eliquis, including dosage, side effects, and importance of taking al medications as ordered. I reviewed PE prophylaxis and worsening s/s to monitor for, including smoking cessation. They verbalize understanding. Patient taken downstairs via w/c.
== END 2022-09-22 11:28 | disposition home health service (06) | DRG 176 ==
LOC: ER 14:25 → MEDSURG 15:11
PROVIDERS: Internal Medicine; Admitting Provider Internal Medicine; Emergency Provider Emergency Medicine; PCP Physician Assistant Medical; Visit Provider Internal Medicine
DX: I26.99 Other pulmonary embolism without acute cor pulmonale (principal); F17.210 Nicotine dependence, cigarettes, uncomplicated; E86.0 Dehydration; I27.20 Pulmonary hypertension, unspecified; I10 Essential (primary) hypertension; E03.9 Hypothyroidism, unspecified; Z80.1 Family history of malignant neoplasm of trachea, bronchus and lung; Z80.0 Family history of malignant neoplasm of digestive organs
CPT/HCPCS: 36415; 71275; 80048; 80053; 82607; 83880; 84145; 84443; 84484; 85025; 85378; 85610; 85730; 93005; 93306; 93970; 96372; 97110; 97116; 97161; 97166; 99285; G0378; J1650; J7030; Q9967

== ENCOUNTER → 2022-10-19 12:51 | Outpatient (BNVA) | payer MEDICARE, SELFPAY | PROVIDERS: Visit Provider Urology | DX: N30.80 Other cystitis without hematuria (principal); T83.711A Erosion of implanted vaginal mesh to surrounding organ or tissue, initial encounter; R35.81 Nocturnal polyuria; X58.XXXA Exposure to other specified factors, initial encounter | CPT/HCPCS: 81003; 99213 ==

== ENCOUNTER 2022-10-24 11:32 | Oncology outpatient (recurring) (ONCR) | payer MEDICARE, SELFPAY | END 2022-10-31 23:59 | disposition home or self-care (01) | PROVIDERS: PCP Registered Nurse; Visit Provider Internal Medicine Medical Oncology | DX: I26.99 Other pulmonary embolism without acute cor pulmonale (principal); R04.2 Hemoptysis; Z79.01 Long term (current) use of anticoagulants | CPT/HCPCS: 99204 ==

== ENCOUNTER 2022-12-14 15:23 | Inpatient (IN) | payer MEDICARE, SELFPAY ==
[2022-12-14 15:23] VITALS: BP 103/65; PULSE 103; RESP 18; TEMP 36.7; O2SAT 93; BMI 17.2
[2022-12-14 15:48] VITALS: BP 106/52; PULSE 82; RESP 16; O2SAT 93
--- NOTE | 2022-12-14 16:17 | XRR_ITS ---
PROCEDURE INFORMATION: Exam: XR Chest Exam date and time: 12/14/2022 4:27 PM Age: 87 years old Clinical indication: Cough and fever; Additional info: Fever cough TECHNIQUE: Imaging protocol: Radiologic exam of the chest. Views: 1 view. COMPARISON: CR XR chest 2V* [id number] 06/04/2022 9:29 AM FINDINGS: Lungs: Left lower lobe pneumonia. Emphysematous changes. Biapical pleuroparenchymal fibrotic changes similar to prior exam. Pleural spaces: Small to moderate left pleural effusion. Heart/Mediastinum: Unremarkable. No cardiomegaly. Bones/joints: Unremarkable. XR/XR chest 1V portable [id number] IMPRESSION: 1. Small to moderate left pleural effusion. 2. Left lower lobe pneumonia. 3. Emphysematous changes. 4. Biapical pleuroparenchymal fibrotic changes similar to prior exam.
--- NOTE | 2022-12-14 16:20 | W.ED.ABDPA2 ---
HPI - Abdominal Pain General: Chief Complaint: Abdominal Pain Stated Complaint: abdpain/sob/choked last night Time Seen by Provider: 12/14/22 15:37 History of Present Illness: Patient presents to the ED with chief complaint of upper abdominal pain. Patient also had a fever of approximately 102 degrees this morning that responded with Tylenol. Patient says she choked while eating yesterday and had a coughing fit. Family says she has coughing episodes every morning due to her chronic bronchitis. Patient is lying comfortably in bed no distress MD elicited complaint: abdominal pain (Fever) Pertinent past history: none Onset (ago): hour(s) (This morning) Pain Consistency: intermittent and now resolved Location: Other (Upper abdomen) Severity: mild Quality: aching Radiation: none Migration to: no migration Exacerbating factors: movement Relieving factors: other (Lying still) Associated Symptoms: Reports fever(s); Denies chills, diarrhea, dysuria, nausea and vomiting Review of Systems General: Reports: 10 or more systems reviewed and unremarkable except in HPI and below Const: Reports: fever(s); Denies: chills or body aches Eyes: Denies: change in vision ENMT: Denies: throat pain or odynophagia Card: Denies: chest pain, palpitations or irregular heart rhythm Resp: Reports: non-productive cough; Denies: dyspnea or productive cough GI: Reports: abdominal pain; Denies: nausea, vomiting or diarrhea : Denies: flank pain, difficulty voiding, dysuria or urinary frequency Musc: Denies: neck pain, back pain or extremity pain Skin/Breast: Denies: rash or pruritus Neuro: Denies: headache(s), numbness in extremities or weakness in extremities Psych: Denies: anxiety or depression Endo: Denies: polyuria or polydipsia Andres/Lymph: Denies: easy bruising or easy bleeding All/Imm: Denies: urticaria or throat swelling PFSH ED PFSH: Medical History (Updated 12/14/22 @ 18:50 by Tejsa Chandler MD) Chronic UTI Cystitis cystica Elevated bilirubin Hypertension Hypothyroidism Pulmonary embolism Recurrent UTI Surgical History H/O bladder repair surgery Mesh erosion excision, anterior colporrhaphy augmented with allograft performed by Dr. Smalls at [facility] on 03/31/2020 H/O eye surgery right H/O vaginal surgery 08/04/2020- vaginal sling revision performed by Dr. Smalls at [facility] H/O: hysterectomy 1977 Family History Sister Lung cancer Hypertension Stroke Thyroid condition Ovarian cancer, Onset Age: 64 Brother Hypertension Stroke Mother , at age 95 No problems noted. Father , at age 32 Drowning Denies family history of Colon cancer Diabetes Clotting disorder Hyperlipidemia Breast cancer Anesthesia complication Bleeding disorder Uterine cancer Social History Smoking and tobacco status: current every day smoker cigarettes Packs smoked per day: 0.5 Alcohol intake: never Household members: spouse Marital status: Current occupational status: retired Physical Exam Const: COMMON NORMALS: no acute distress, average body habitus, patient oriented x3, no limitations, healthy appearing, alert and well nourished HENMT: COMMON NORMALS: normocephalic, atraumatic, hearing grossly normal bilaterally and moist oral mucous membranes HEAD & SCALP: normocephalic and atraumatic Neck/C-Spine: COMMON NORMALS: full ROM, no lymphadenopathy, supple, no JVD and Thyroid normal THYROID: Thyroid normal Chest: COMMONS NORMALS: normal inspection of the chest and normal palpation of entire chest wall Resp: COMMON NORMALS: normal respiratory effort, No retractions, No use of accessory muscles and clear to auscultation bilaterally AUSCULTATION: clear to auscultation bilaterally Cardio: COMMON NORMALS: no JVD, regular rate, regular rhythm, S1 normal heart sound present, S2 normal heart sound present and No gallops present (Cardio) RATE: regular rate RHYTHM: regular rhythm HEART SOUNDS: S1 normal heart sound present and S2 normal heart sound present GI: COMMON NORMALS: Normal to inspection, nondistended, normoactive bowel sounds present, Soft to palpation, non-tender, No hepatosplenomegaly present and no masses PALPATION: Yes Soft to palpation and Yes No hepatosplenomegaly present Extremity: COMMON NORMALS: normal to inspection Neuro: COMMON NORMALS: patient oriented x3, CN's II-XII intact bilaterally, moves all extremities and no focal motor deficits SENSORIUM/ORIENTATION: Yes alert Course Vital Signs: Vital signs: Vital Signs Temperature 98.1 F 12/14/22 15:23 Pulse Rate 84 12/14/22 18:00 Respiratory Rate 18 12/14/22 18:00 Blood Pressure 138/71 12/14/22 18:00 Pulse Oximetry 95 12/14/22 18:00 Oxygen Delivery Me thod 12/14/22 18:00 MDM - Abdominal Pain Medical Decision Making Patient presents to the ER with complaints of left upper abdominal pain left lower rib pain as well as a fever of 102. Patient's family does states she choked on some food yesterday and had a coughing fit but was her normal self afterwards. The fever started this morning and it responded well with Tylenol. Upon getting further history from the patient as well as physical exam and labs which showed a white count of 27.7, lactic acid 1.2, as well as imaging of the abdomen which showed constipation with no obstruction and a chest x-ray that showed small to moderate left pleural effusion, left lower lobe pneumonia it was felt patient would benefit from inpatient mission and IV antibiotics. This was discussed with patient and family and they were agreeable. Dr. Chandler was consulted and he accepted for admission. Differential Diagnosis Likely abdominal pain and constipation; Unlikely acute appendicitis, calculus of kidney, diverticulitis, endometriosis, gastroenteritis, pancreatitis or small bowel obstruction Lab Data 12/14/22 16:33 12/14/22 16:33 Labs/Radiology: Radiology Impressions Chest X-Ray 12/14/22 16:17 IMPRESSION: 1. Small to moderate left pleural effusion. 2. Left lower lobe pneumonia. 3. Emphysematous changes. 4. Biapical pleuroparenchymal fibrotic changes similar to prior exam. Abdomen X-Ray 12/14/22 16:22 IMPRESSION: 1. Constipation without bowel dilation to indicate obstruction. 2. Degenerative changes throughout the spine. 3. Scattered vascular calcifications. Laboratory Results WBC 27.7 10^3/uL (4.0-10.0) H 12/14/22 16:33 RBC 4.42 10^6/uL (4.1-5.3) 12/14/22 16:33 Hgb 13.0 g/dL (11.5-15.3) 12/14/22 16:33 Hct 39.8 % (37.0-47.0) 12/14/22 16:33 MCV 90.0 fl (81-99) 12/14/22 16: MCH 29.4 pg (28.0-34.0) 12/14/22 16: MCHC 32.7 g/dL (30.0-36.0) 12/14/22 16: RDW 13.4 % (12.1-15.1) 12/14/22 16: Plt Count 178 10^3/cmm (130-400) 12/14/22 16: MPV 11.2 fL (7.4-10.4) H 12/14/22 16:33 Neut % (Auto) 91.3 % 12/14/22 16: Lymph % (Auto) 2.5 % 12/14/22: Coryell % (Auto) 5.3 % 12/14/22 16: Eos % (Auto) 0.0 % 12/14/22: Baso % (Auto) 0.3 % 12/14/22: Neut # (Auto) 25.31 10^3/uL (1.8-7.7) H 12/14/22 16: Lymph # (Auto) 0.7 10^3/uL (0.8-4.8) L 12/14/22: Coryell # (Auto) 1.5 10^3/uL (0.2-0.9) H 12/14/22 16: Eos # (Auto) 0.0 10^3/uL (0.0-0.8) 12/14/22: Baso # (Auto) 0.1 10^3/uL (0.0-0.1) 12/14/22: Nucleated RBC % (auto) 0 % 12/14/22: Nucleated RBCs # 0.0 /100WBC 12/14/22: PT 22.40 SECONDS (12.1-14.9) H 12/14/22 16: INR 1.89 (0.8-1.2) H 12/14/22 16:33 Sodium 141 mmol/L (136-145) 12/14/22 16: Potassium 3.9 mmol/L (3.5-5.1) 12/14/22 16: Chloride 103 mmol/L (98-107) 12/14/22 16:33 Carbon Dioxide 26 mmol/L (22-29) 12/14/22 16:33 Anion Gap 15.9 (5-19) 12/14/22 16:33 BUN 21 mg/dL (8-23) 12/14/22 16:33 Creatinine 0.9 mg/dL (0.5-0.9) 12/14/22 16:33 GFR Calculation Not Reportable 12/14/22 16:33 Glucose 93 mg/dL (65-115) 12/14/22 16:33 Calculated Osmolality 295 mOsm/kg (285-295) 12/14/22 16:33 Lactic Acid 1.2 mmol/L (0.5-2.2) 12/14/22 17:45 Calcium 9.0 mg/dL (8.5-10.5) 12/14/22 16:33 Total Bilirubin 1.5 mg/dL (0.15-1.2) H 12/14/22 16:33 AST 16 U/L (0-32) 12/14/22 16:33 ALT 7 U/L (0-33) 12/14/22 16:33 Alkaline Phosphatase 60 U/L (35-105) 12/14/22 16:33 Total Protein 6.1 g/dL (6.6-8.7) L 12/14/22 16:33 Albumin 3.6 g/dL (3.5-5.2) 12/14/22 16:33 Globulin 2.5 g/dL (1.3-4.6) 12/14/22 16:33 Lipase 9 U/L (13-60) L 12/14/22 16:33 Influenza Type A Ag negative (Negative) 12/14/22 16:33 Influenza Type B Ag negative (Negative) 12/14/22 16:33 SARS-CoV-2 Ag (Rapid) negative (Negative) 12/14/22 16:33 Discharge Plan Discharge Patient Disposition: Admitted As Inpatient Admit Provider: Tejas Chandler Clinical Impression: Left lower lobe pneumonia, Constipation, Pleural effusion on left, Leukocytosis Condition: Stable Coding Level of Care Code ED Compound Specialist for Guanako Lemon
--- NOTE | 2022-12-14 16:22 | XRR_ITS ---
PROCEDURE INFORMATION: Exam: XR Abdomen Exam date and time: 12/14/2022 4:59 PM Age: 87 years old Clinical indication: Abdominal pain; Additional info: Upper abd pain TECHNIQUE: Imaging protocol: Radiologic exam of the abdomen. Views: Frontal supine view of the abdomen. 1 View. COMPARISON: CR XR chest 1V portable [id number] 12/14/2022 4:27 PM FINDINGS: Gastrointestinal tract: Constipation without bowel dilation to indicate obstruction. Vasculature: Scattered vascular calcifications. Bones/joints: Degenerative changes throughout the spine. XR/XR abdomen 1V* [id number] IMPRESSION: 1. Constipation without bowel dilation to indicate obstruction. 2. Degenerative changes throughout the spine. 3. Scattered vascular calcifications.
[2022-12-14 16:51] LABS: Basophils # 0.1 10^3/uL (0.0-0.1); Basophils % 0.3 %; Hematocrit 39.8 % (37.0-47.0); Lymphocytes # 0.7 10^3/uL (0.8-4.8); Lymphocytes % 2.5 %; Mean Corpuscular HGB Conc 32.7 g/dL (30.0-36.0); Mean Corpuscular Hemoglobin 29.4 pg (28.0-34.0); Mean Platelet Volume 11.2 fL (7.4-10.4); Monocytes # 1.5 10^3/uL (0.2-0.9); Monocytes % 5.3 %; Neutrophils # 25.31 10^3/uL (1.8-7.7); Neutrophils % 91.3 %; Nucleated Red Blood Cells % 0 %; Platelet Count 178 10^3/cmm (130-400); Red Blood Count 4.42 10^6/uL (4.1-5.3); Red Cell Distribution Width 13.4 % (12.1-15.1); White Blood Count 27.7 10^3/uL (4.0-10.0)
[2022-12-14 17:02] LABS: Influenza A by IFA negative (Negative); Influenza B by IFA negative (Negative)
[2022-12-14 17:04] LABS: SARS Covid-2 Antigen negative (Negative)
[2022-12-14 17:13] LABS: INR 1.89 (0.8-1.2)
--- NOTE | 2022-12-14 17:24 | PC.NURSE ---
PATIENT REFUSING URINE SAMPLE. PROVIDER NOTIFIED.
[2022-12-14 17:51] LABS: Alanine Aminotransferase 7 U/L (0-33); Albumin Level 3.6 g/dL (3.5-5.2); Alkaline Phosphatase 60 U/L (35-105); Anion Gap 15.9 (5-19); Aspartate Amino Transferase 16 U/L (0-32); Blood Urea Nitrogen 21 mg/dL (8-23); Carbon Dioxide 26 mmol/L (22-29); Chloride 103 mmol/L (98-107); Creatinine Clr Calc Pharmacy 35.3423; Globulin 2.5 g/dL (1.3-4.6); Glucose 93 mg/dL (65-115); Lipase 9 U/L (13-60); Osmolality Calculated 295 mOsm/kg (285-295); Potassium 3.9 mmol/L (3.5-5.1); Sodium 141 mmol/L (136-145); Total Bilirubin 1.5 mg/dL (0.15-1.2); Total Protein 6.1 g/dL (6.6-8.7)
[2022-12-14] MEDS: clindamycin 600 MG/50 ML PREMIX 100 MG IV (17:58)
[2022-12-14 18:00] VITALS: BP 138/71; PULSE 84; RESP 18; O2SAT 95
[2022-12-14 18:15] LABS: Lactic Sepsis W/Reflex 1.2 mmol/L (0.5-2.2)
[2022-12-14 18:39] VITALS: BP 143/61; PULSE 101; RESP 32; TEMP 39; O2SAT 88
--- NOTE | 2022-12-14 18:47 | PM.HP ---
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 X-ray chest has shown: Small to moderate left pleural effusion left lower lobe pneumonia X-ray abdomen: Constipation without evident obstruction Pertinent labs: WBC 27.7 , H&H: 13/39 , PLT : 178 , serum sodium 141 serum potassium 3.9, BUN 21, serum creatinine 0.9 Total bilirubin 1.5, lactic acid 1.2 Patient was given clindamycin 600 mg one-time dose in the ER Review of Systems General: Reports: 10 or more systems reviewed and unremarkable except in HPI and below Const: Reports: fever(s); Denies: chills, body aches, change in appetite or diaphoresis Card: Denies: palpitations, edema, swelling of feet/ankles, dyspnea on exertion, orthopnea or leg pain with exertion Resp: Denies: dyspnea, productive cough, wheezing or pain on inspiration GI: Reports: abdominal pain; Denies: nausea, vomiting, diarrhea or constipation : Denies: flank pain Musc: Denies: back pain, extremity pain or extremity swelling Neuro: Denies: headache(s), difficulty walking or confusion Medications/Allergies Home Medications Medication Instructions Recorded Confirmed Last Taken Type amlodipine 5 mg tablet 5 mg PO BID 03/05/20 12/14/22 08/03/20 History losartan 100 mg tablet 100 mg PO DAILY 03/05/20 12/14/22 09/19/22 History polyethylene glycol 3350 17 gram 17 g PO BEDTIME 03/31/20 12/14/22 08/02/20 History oral powder packet (Miralax) ascorbic acid (vitamin C) 500 mg 1,000 mg PO BID 09/20/22 12/14/22 Unknown History tablet (Vitamin C) levothyroxine 75 mcg tablet 75 mcg PO DAILY@13 09/20/22 12/14/22 Unknown History methenamine hippurate 1 gram tablet 1 g PO BID #180 tabs 10/19/22 12/14/22 Unknown Rx apixaban 5 mg (74 tabs) tablets in 5 mg PO BID 12/14/22 12/14/22 Unknown History a dose pack (Eliquis DVT-PE Treat 30D Start) Allergies Allergy/AdvReac Type Severity Reaction Status Date / Time Cephalosporins Allergy Severe swelling Verified 10/24/22 11:48 of throat ciprofloxacin [From Cipro] Allergy Severe swelling Verified 10/24/22 11:48 of throat and mouth Sulfa (Sulfonamide Allergy Severe swelling Verified 10/24/22 11:48 Antibiotics) of throat cefdinir Allergy Unknown Verified 10/24/22 11:48 nitrofurantoin Allergy Unknown Verified 10/24/22 11:48 [From Macrobid] PFSH Acute PFSH: Medical History (Updated 12/14/22 @ 18:50 by Tejas Chandler MD) Chronic UTI Cystitis cystica Elevated bilirubin Hypertension Hypothyroidism Pulmonary embolism Recurrent UTI Surgical History H/O bladder repair surgery Mesh erosion excision, anterior colporrhaphy augmented with allograft performed by Dr. Smalls at [facility] on 03/31/2020 H/O eye surgery right H/O vaginal surgery 08/04/2020- vaginal sling revision performed by Dr. Smalls at [facility] H/O: hysterectomy 1977 Family History Sister Lung cancer Hypertension Stroke Thyroid condition Ovarian cancer, Onset Age: 64 Brother Hypertension Stroke Mother , at age 95 No problems noted. Father , at age 32 Drowning Denies family history of Colon cancer Diabetes Clotting disorder Hyperlipidemia Breast cancer Anesthesia complication Bleeding disorder Uterine cancer Social History Smoking and tobacco status: current every day smoker cigarettes Packs smoked per day: 0.5 Alcohol intake: never Household members: spouse Marital status: Current occupational status: retired Vitals/I&O/Wt Last Vital Signs Temp 98.1 F 12/14/22 15:23 Pulse 84 12/14/22 18:00 Resp 18 12/14/22 18:00 BP 138/71 12/14/22 18:00 Pulse Ox 95 12/14/22 18:00 O2 Del Method 12/14/22 18:00 Weight last 48 hrs Weight 49.895 kg Physical Exam Const: COMMON NORMALS: patient oriented x3 HENMT: COMMON NORMALS: normocephalic and atraumatic Resp: COMMON NORMALS: clear to auscultation bilaterally EFFORT & INSPECTION: Yes symmetric chest movement AUSCULTATION: clear to auscultation bilaterally OTHER: diminished air entry in lt lung rios Cardio: COMMON NORMALS: regular rate, regular rhythm, S1 normal heart sound present, S2 normal heart sound present, No gallops present (Cardio), No murmurs present (Cardio), No rub (Cardio) and Peripheral pulses 2+ throughout RATE: regular rate RHYTHM: regular rhythm HEART SOUNDS: S1 normal heart sound present and S2 normal heart sound present PERIPHERAL PULSES: Peripheral pulses 2+ throughout GI: COMMON NORMALS: Normal to inspection, nondistended, normoactive bowel sounds present, Soft to palpation, non-tender, No hepatosplenomegaly present and no masses AUSCULTATION: Yes normoactive bowel sounds PALPATION: Yes Soft to palpation and Yes No hepatosplenomegaly present RECTAL EXAM: deferred Extremity: COMMON NORMALS: no clubbing, cyanosis or edema and no pedal edema Neuro: COMMON NORMALS: patient oriented x3 Data 12/14/22 16:33 12/14/22 16:33 Micro: Microbiology 12/14/22 17:38 Blood Culture - Preliminary Blood SPECIMEN COLLECTED 12/14/22 17:45 Blood Culture - Preliminary Blood SPECIMEN COLLECTED A&P Assessment and plan (1) Left lower lobe pneumonia: Qualifiers: Pneumonia type: due to unspecified organism Qualified Code(s): J18.9 - Pneumonia, unspecified organism (2) Pleural effusion on left: (3) Leukocytosis: Qualifiers: Leukocytosis type: unspecified Qualified Code(s): D72.829 - Elevated white blood cell count, unspecified (4) Pulmonary embolism: (5) Hypothyroidism: (6) Hypertension: (7) Constipation: Qualifiers: Constipation type: unspecified constipation type Qualified Code(s): K59.00 - Constipation, unspecified Plan Assessment: Pneumonia: X-ray chest has shown left sided pleural effusion with left lower lobe pneumonia Follow blood culture Urine culture Procalcitonin Sputum Gram stain and culture Urine Legionella antigen Bacterial antigen panel MRSA PCR Currently she has been started on broad-spectrum antibiotic vancomycin and Zosyn, will tailor antibiotic depending upon the clinical course. Left lower lobe pleural effusion: X-ray chest is showing mild to moderate left lower lobe pleural effusion, could be secondary to pneumonia. Possible thoracentesis Monitor x-ray chest History of pulmonary embolism: On Eliquis History of hypothyroidism: Continue levothyroxine History of hypertension: Continue losartan and amlodipine Constipation: Continue MiraLAX As well as lactulose as needed Attestations Medical Necessity Statement*: Patient is to be in hospital management of pneumonia need for IV antibiotics.Anticipated length of stay greater than 2 midnights Coding Level of Care Code 07652 Diagnoses Left lower lobe pneumonia J18.9 Pneumonia type: due to unspecified organism Pleural effusion on left J90 Leukocytosis D72.829 Leukocytosis type: unspecified Pulmonary embolism I26.99 Hypothyroidism E03.9 Hypertension I10 Constipation K59.00 Constipation type: unspecified constipation type
[2022-12-14] MEDS: piperacillin-tazobactam 3.375 GM in sodium chloride 0.9% (plus) 50 ML IV (19:25)
[2022-12-14 20:00] VITALS: BP 110/71; BP 143/61; PULSE 101; PULSE 81; RESP 18; RESP 32; TEMP 39; O2SAT 88; O2SAT 95
[2022-12-14 22:11] VITALS: BMI 17.2
[2022-12-14] MEDS: acetaminophen 325 mg Tablet 650 MG PO (23:25)
[2022-12-14] MEDS: polyethylene glycol 3350 Pkt 17 gm PO (23:25)
[2022-12-14] MEDS: apixaban 5 mg Tablet PO (23:25)
[2022-12-14] MEDS: vancomycin 750 MG in sodium chloride 0.9% 250 ML 250 MG IV (23:25)
[2022-12-14] MEDS: lanolin oint 7 gm 1 APPLIC TOPICAL (23:27)
[2022-12-15] VITALS (12 sets, daily range): BP systolic 103–148; BP diastolic 47–74; PULSE 70–110; RESP 16–23; TEMP 36.6–38; O2SAT 90–95
[2022-12-15 00:42] LABS: Glucose Urine UA Norm (Normal); Protein Urine Trace (Negative); Urine Appearance Clear (CLEAR); Urine Color Dark Yellow (Yellow); pH Urine 6 (5-7)
[2022-12-15 00:43] LABS: Add Urine Microscopic? YES; Bilirubin Urine Neg (Negative); Blood Urine 3+ (Negative); Ketones Urine 1+ (Negative); Leukocyte Esterase Urine Negative (Negative); Nitrate Urine Negative (Negative); Urobilinogen Urine Norm (Negative)
[2022-12-15 00:47] LABS: RBC Urine 25-40 /hpf (0-2)
[2022-12-15 00:49] LABS: Bacteria Urine 1+ /hpf
[2022-12-15] MEDS: piperacillin-tazobactam 3.375 GM in sodium chloride 0.9% (plus) 50 ML IV ×3 (03:11→18:05)
[2022-12-15 05:07] LABS: Hematocrit 37.6 % (37.0-47.0); Hemoglobin 11.6 g/dL (11.5-15.3); Mean Corpuscular HGB Conc 30.9 g/dL (30.0-36.0); Mean Corpuscular Hemoglobin 28.9 pg (28.0-34.0); Mean Corpuscular Volume 93.8 fl (81-99); Mean Platelet Volume 11.8 fL (7.4-10.4); Platelet Count 147 10^3/cmm (130-400); Red Blood Count 4.01 10^6/uL (4.1-5.3); Red Cell Distribution Width 13.6 % (12.1-15.1); White Blood Count 27.7 10^3/uL (4.0-10.0)
[2022-12-15 05:38] LABS: Alanine Aminotransferase 6 U/L (0-33); Albumin Level 2.6 g/dL (3.5-5.2); Alkaline Phosphatase 58 U/L (35-105); Anion Gap 15.9 (5-19); Aspartate Amino Transferase 12 U/L (0-32); Blood Urea Nitrogen 25 mg/dL (8-23); Calcium 8.3 mg/dL (8.5-10.5); Carbon Dioxide 24 mmol/L (22-29); Chloride 107 mmol/L (98-107); Creatinine Clr Calc Pharmacy 35.3423; Globulin 2.8 g/dL (1.3-4.6); Glucose 82 mg/dL (65-115); Osmolality Calculated 299 mOsm/kg (285-295); Potassium 3.9 mmol/L (3.5-5.1); Sodium 143 mmol/L (136-145); Total Bilirubin 1.2 mg/dL (0.15-1.2); Total Protein 5.4 g/dL (6.6-8.7)
[2022-12-15 05:41] LABS: Procalcitonin 6.39 ng/mL (0-0.5)
[2022-12-15 05:43] LABS: Absolute Segmented Neutrophil 18.3 10/cmm (1.6-7.1); Monocytes Absolute 0.3 10^3/cmm (0.1-0.6); Segmented Neutrophils 66 %; Total Cells Counted 100 (0-100)
[2022-12-15 05:44] LABS: Absolute Neutrophil 18.3 10^3/cmm (1.4-6.5); Eosinophils 0 %; Lymphocytes 30 %; Lymphocytes Absolute 9.1 10^3/cmm (1.2-3.4); Platelet Estimate Normal (Normal)
[2022-12-15] MEDS: apixaban 5 mg Tablet PO (09:56)
--- NOTE | 2022-12-15 10:10 | CT_ITS ---
WS: [id number] CT ANGIOGRAPHY chest abdomen and pelvis HISTORY: sob, abdominal pain TECHNIQUE: Noncontrast chest angiogram first performed. CT angiogram is performed during IV injection . Reformation images reviewed. All CT scans at [facility] use at least one of these dose optim ization techniques: automated exposure control; mA and/or kV adjustment per patient size (includes ta rgeted exams where dose is matched to clinical indication); or iterative reconstruction. CONTRAST: Omnipaque 350; 100 mL IV. DLP: 651.46 mGy.cm COMPARISON: 09/20/2022 Chest CTA: Severe atherosclerotic plaque throughout the aorta. Mild ectasia and dilatation. No high-g rade aneurysm. Extensive calcified plaque with intimal thickening. Calcification at the origin of gre at vessels. No dissection. Enlarged pulmonary artery. No central pulmonary emboli. Distal emboli would be difficult to exclude. Suspect a nonocclusive emboli in the distal RIGHT lower lobe subsegmental artery. Markedly enlarged h eart. No pericardial effusion. Centrilobular emphysema. Scattered opacifications of both lungs and groundglass attenuation. Moderate LEFT pleural effusion with atelectasis. Abdomen and pelvis CTA: Extensive atherosclerotic plaque throughout the aorta. No aneurysm. Calcification within the mesenter ic arteries with mild to moderate stenosis. Atheromatous calcification continues into the iliac arter ies. Iliac arteries are patent through to the proximal SFA. Bilateral renal artery atherosclerosis. Early arterial imaging through the distal organs with no abnormality identified. Very mild gallbladde r hydrops. Bilateral renal cysts. No GI tract obstruction. Constipation. No free fluid. No definite i schemic changes. Osteopenia and increased thoracic kyphosis. CT/CT [facility] [id number] IMPRESSION: 1. Extensive atherosclerotic plaque throughout the thoracic and abdominal aort as. No dissection or significant aneurysm. Marked aortic ectasia and heavy athe rosclerotic plaque. 2. Atherosclerotic plaque continues into the proximal great vessels and also i nto the mesenteric and renal arteries. 3. Moderate LEFT pleural effusion with compressive atelectasis at the LEFT anoop g base. 4. Centrilobular emphysema with scattered opacifications. Probably on the basi s of pneumonitis. No dense consolidation. 5. Marked constipation. 6. Single partial filling defect in the distal RIGHT subsegmental pulmonary ar rebel. Age-indeterminate pulmonary emboli. No large central pulmonary emboli.
--- NOTE | 2022-12-15 11:32 | PC.NURSE ---
Notified Dr. Chandler of BP 105/[address] Chandler gave verbal order to discontinue medication.
[2022-12-15] MEDS: iohexol 350 mg/mL 500 mL Btl (per mL) IV (11:48)
--- NOTE | 2022-12-15 13:05 | PM.PN ---
Subjective Subjective: Patient was seen and examined this morning, denied any significant shortness of breath nausea vomiting chest pain, Continue to have temperature spike: Noted Tmax of 102.2 Medications: Medication Review Details: Generic Name Dose Route Start Last Admin Trade Name Freq PRN Reason Stop Dose Admin Acetaminophen 650 mg 12/14/22 18:39 12/14/22 23:25 Acetaminophen 32 5 Mg Tablet PO 650 mg Q6H PRN Administration Mild/Mod Pain Or Temp >/= 101 Apixaban 5 mg 12/14/22 21:00 12/15/22 09:56 Apixaban 5 Mg Ta blet PO 5 mg BID TYREE Administration Piperacillin Sod/T azobactam 50 mls @ 12.5 mls /hr 12/14/22 18:45 12/15/22 09:59 Sod 3.375 gm/ So dium Chloride IV 12.5 mls/hr Q8H TYREE Administration Protocol Vancomycin HCl 750 mg/ Sodium 250 mls @ 250 mls /hr 12/14/22 20:00 12/15/22 00:30 Chloride IV Infused Q24H TYREE Infusion Lanolin 1 applic 12/14/22 22:39 12/14/22 23:27 Lanolin Oint 7 G m TOPICAL 1 applic PRN PRN Administration DRYNESS Polyethylene Glyco l 17 gm 12/14/22 21:00 12/14/22 23:25 Polyethylene Gly col 3350 Pkt 17 Gm PO 17 gm BEDTIME TYREE Administration Vitals/I&O/Wt Last Vital Signs Temp 98.0 F 12/15/22 11:37 Pulse 81 12/15/22 11:37 Resp 16 12/15/22 11:37 BP 108/74 12/15/22 11:37 Pulse Ox 90 12/15/22 11:37 O2 Del Method 12/15/22 08:29 O2 Flow Rate 1.5 12/15/22 04:00 12/14/22 12/15/22 12/15/22 22:59 06:59 14:59 Intake Total 50 / 50 300 / 350 50 / 50 Output Total 100 / 100 Balance 50 / 50 200 / 250 50 / 50 Weight last 48 hrs Weight 49.895 kg Weight 49.895 kg Physical Exam Const: COMMON NORMALS: patient oriented x3 HENMT: COMMON NORMALS: normocephalic and atraumatic HEAD & SCALP: normocephalic and atraumatic Resp: COMMON NORMALS: clear to auscultation bilaterally EFFORT & INSPECTION: Yes symmetric chest movement AUSCULTATION: clear to auscultation bilaterally OTHER: diminished air entry in lt lung rios Cardio: COMMON NORMALS: regular rate, regular rhythm, S1 normal heart sound present, S2 normal heart sound present, No gallops present (Cardio), No murmurs present (Cardio), No rub (Cardio) and Peripheral pulses 2+ throughout RATE: regular rate RHYTHM: regular rhythm HEART SOUNDS: S1 normal heart sound present and S2 normal heart sound present PERIPHERAL PULSES: Peripheral pulses 2+ throughout GI: COMMON NORMALS: Normal to inspection, nondistended, normoactive bowel sounds present, Soft to palpation, non-tender, No hepatosplenomegaly present and no masses AUSCULTATION: Yes normoactive bowel sounds PALPATION: Yes Soft to palpation and Yes No hepatosplenomegaly present RECTAL EXAM: deferred : COMMON NORMALS: Yes no CVA tenderness BLADDER/KIDNEY EXAM: Yes no CVA tenderness Back/Pelvis: COMMON NORMALS: no CVA tenderness Extremity: COMMON NORMALS: no clubbing, cyanosis or edema and no pedal edema Neuro: COMMON NORMALS: patient oriented x3 Data 12/15/22 04:38 12/15/22 04:38 Micro: Microbiology 12/14/22 22:00 MRSA Culture - Final Nose 12/14/22 23:23 Legionella Urinary Antigen - Final Urine,Voided Bacterial Antigens - Final 12/14/22 17:45 Blood Culture - Preliminary Blood 12/14/22 17:38 Blood Culture - Preliminary Blood A&P Assessment and plan (1) Left lower lobe pneumonia: Qualifiers: Pneumonia type: due to unspecified organism Qualified Code(s): J18.9 - Pneumonia, unspecified organism (2) Pleural effusion on left: (3) Leukocytosis: Qualifiers: Leukocytosis type: unspecified Qualified Code(s): D72.829 - Elevated white blood cell count, unspecified (4) Pulmonary embolism: (5) Hypothyroidism: (6) Hypertension: (7) Constipation: Qualifiers: Constipation type: unspecified constipation type Qualified Code(s): K59.00 - Constipation, unspecified Plan 87 year old female with past medical history of hypertension hypothyroidism, unprovoked pulmonary embolism on long-term Eliquis, recurrent UTI, came in today with chief complaint of lt? upper abdominal pain, chronic cough, likely has worsened in the last few days, with shortness of breath, fever as well as, 1 episode of choking episode by eating at home. Assessment: Sepsis secondary to pneumonia present on admission: Patient meets SIRS criteria: Has high-grade fever, tachycardia tachypnea WBC count greater than 12,000, currently she is source of infection in the form of pneumonia. CT chest abdomen pelvis: Results appreciated Blood culture Urine culture Procalcitonin: 6.39 Sputum Gram stain and culture Urine Legionella antigen: Negative Bacterial antigen panel; negative MRSA PCR: Negative Influenza negative rapid COVID negative On broad-spectrum antibiotics Pneumonia: X-ray chest has shown left sided pleural effusion with left lower lobe pneumonia Follow blood culture Urine culture Procalcitonin Sputum Gram stain and culture Urine Legionella antigen Bacterial antigen panel MRSA PCR Currently she has been started on broad-spectrum antibiotic vancomycin and Zosyn, will tailor antibiotic depending upon the clinical course. Left lower lobe pleural effusion: X-ray chest is showing mild to moderate left lower lobe pleural effusion, could be secondary to pneumonia. Will Plan for thoracentesis. Monitor x-ray chest. History of pulmonary embolism: On Eliquis History of hypothyroidism: Continue levothyroxine History of hypertension: Continue losartan and amlodipine Constipation: Continue MiraLAX As well as lactulose as needed Attestations Medical Necessity Statement*: Patient needs to be in hospital for management of sepsis. Coding Level of Care Code 49850 Diagnoses Left lower lobe pneumonia J18.9 Pneumonia type: due to unspecified organism Pleural effusion on left J90 Leukocytosis D72.829 Leukocytosis type: unspecified Pulmonary embolism I26.99 Hypothyroidism E03.9 Hypertension I10 Constipation K59.00 Constipation type: unspecified constipation type Time Spent (min) 35
[2022-12-15] MEDS: levothyroxine 75 mcg Tablet PO (13:32)
--- NOTE | 2022-12-15 15:22 | ECG_ITS ---
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1935 Requested By: Tejas Chandler Order Number: [id number] Deyvi MD: JASON DARNELL Measurements Intervals [place] Rate: 120 P: 0 IA: 0 QRS: -53 QRSD: 95 T: 77 QT: 290 QTc: 411 Interpretive Statements ATRIAL FIBRILLATION WITH RAPID VENTRICULAR RESPONSE LEFT AXIS DEVIATION [QRS AXIS < -30] ANTEROSEPTAL MYOCARDIAL INFARCTION , OF INDETERMINATE AGE [40+ ms Q WAVE IN V1-V4] Compared to ECG 09/20/2022 17:22:57 Left-axis deviation now present Sinus bradycardia no longer present First degree AV block no longer present Left anterior fascicular block no longer present Myocardial infarct finding still present Electronically Signed On 12-16-2022 23:37:40 CDT by JASON DARNELL [id number]
[2022-12-15] MEDS: dilTIAZem 5 mg/mL SDV 5 mL 10 MG IVP (18:04)
[2022-12-15] MEDS: dilTIAZem 30 mg Tablet PO ×2 (18:04→23:25)
--- NOTE | 2022-12-15 18:19 | PC.NURSE ---
Notified Dr. Chandler patients Heart Rate up in 150's. Performed EKG and called Dr. Chandler with results. Dr. Chandler did put orders in for this evening for cardizem.
[2022-12-15] MEDS: vancomycin 750 MG in sodium chloride 0.9% 250 ML 250 MG IV (21:23)
[2022-12-15] MEDS: acetaminophen 325 mg Tablet 650 MG PO (21:23)
[2022-12-15] MEDS: polyethylene glycol 3350 Pkt 17 gm PO (21:28)
[2022-12-16] VITALS (9 sets, daily range): BP systolic 99–128; BP diastolic 45–70; PULSE 65–89; RESP 15–22; TEMP 36.6–37.4; O2SAT 91–96
[2022-12-16] MEDS: piperacillin-tazobactam 3.375 GM in sodium chloride 0.9% (plus) 50 ML IV ×3 (02:18→18:09)
[2022-12-16 04:22] LABS: Basophils # 0.1 10^3/uL (0.0-0.1); Basophils % 0.2 %; Eosinophils % 0.1 %; Hematocrit 37.9 % (37.0-47.0); Lymphocytes # 0.8 10^3/uL (0.8-4.8); Lymphocytes % 2.8 %; Mean Corpuscular HGB Conc 31.7 g/dL (30.0-36.0); Mean Corpuscular Hemoglobin 29.3 pg (28.0-34.0); Mean Corpuscular Volume 92.7 fl (81-99); Mean Platelet Volume 11.9 fL (7.4-10.4); Monocytes # 1.4 10^3/uL (0.2-0.9); Monocytes % 5.1 %; Neutrophils # 24.69 10^3/uL (1.8-7.7); Neutrophils % 88.7 %; Nucleated Red Blood Cells % 0 %; Platelet Count 180 10^3/cmm (130-400); Red Blood Count 4.09 10^6/uL (4.1-5.3); Red Cell Distribution Width 13.8 % (12.1-15.1); White Blood Count 27.9 10^3/uL (4.0-10.0)
[2022-12-16 04:38] LABS: INR 1.83 (0.8-1.2)
[2022-12-16 04:47] LABS: Alanine Aminotransferase 6 U/L (0-33); Albumin Level 2.8 g/dL (3.5-5.2); Alkaline Phosphatase 91 U/L (35-105); Anion Gap 12.9 (5-19); Aspartate Amino Transferase 13 U/L (0-32); Blood Urea Nitrogen 28 mg/dL (8-23); Calcium 8.7 mg/dL (8.5-10.5); Carbon Dioxide 29 mmol/L (22-29); Chloride 106 mmol/L (98-107); Globulin 2.7 g/dL (1.3-4.6); Glucose 96 mg/dL (65-115); Osmolality Calculated 303 mOsm/kg (285-295); Potassium 3.9 mmol/L (3.5-5.1); Sodium 144 mmol/L (136-145); Total Bilirubin 0.5 mg/dL (0.15-1.2); Total Protein 5.5 g/dL (6.6-8.7)
[2022-12-16] MEDS: dilTIAZem 30 mg Tablet PO ×3 (05:14→18:09)
--- NOTE | 2022-12-16 09:49 | PM.PN ---
Subjective Subjective: Patient was seen and examined this morning, denies any significant shortness of breath abdominal pain nausea vomiting, she was complaining of generalized weakness. Labs noted Tmax of: 100.4 at 4 PM yesterday. Persistently elevated WBC. Medications: Medication Review Details: Generic Name Dose Route Start Last Admin Trade Name Freq PRN Reason Stop Dose Admin Acetaminophen 650 mg 12/14/22 18:39 12/15/22 21:23 Acetaminophen 32 5 Mg Tablet PO 650 mg Q6H PRN Administration Mild/Mod Pain Or Temp >/= 101 Apixaban 5 mg 12/14/22 21:00 12/15/22 09:56 Apixaban 5 Mg Ta blet PO 5 mg BID TYREE Administration Diltiazem HCl 30 mg 12/15/22 18:00 12/16/22 05:14 Diltiazem 30 Mg Tablet PO 30 mg Q6H TYREE Administration Piperacillin Sod/T azobactam 50 mls @ 12.5 mls /hr 12/14/22 18:45 12/16/22 02:18 Sod 3.375 gm/ So dium Chloride IV 12.5 mls/hr Q8H TYREE Administration Protocol Vancomycin HCl 750 mg/ Sodium 250 mls @ 250 mls /hr 12/14/22 20:00 12/15/22 22:37 Chloride IV Infused Q24H TYREE Infusion Lanolin 1 applic 12/14/22 22:39 12/14/22 23:27 Lanolin Oint 7 G m TOPICAL 1 applic PRN PRN Administration DRYNESS Levothyroxine Sodi um 75 mcg 12/15/22 13:00 12/15/22 13:32 Levothyroxine 75 Mcg Tablet PO 75 mcg DAILY@1300 TYREE Administration Polyethylene Glyco l 17 gm 12/14/22 21:00 12/15/22 21:28 Polyethylene Gly col 3350 Pkt 17 Gm PO 17 gm BEDTIME TYREE Administration Vitals/I&O/Wt Last Vital Signs Temp 98.0 F 12/16/22 08:00 Pulse 65 12/16/22 08:00 Resp 15 12/16/22 08:00 BP 127/62 12/16/22 08:00 Pulse Ox 91 12/16/22 08:00 O2 Del Method Nasal Cannula 12/16/22 08:00 O2 Flow Rate 1 12/16/22 00:00 12/15/22 12/16/2212/16/23 22:59 06:59 14:59 Intake Total 420 / 620 680 / 1300 240 / 240 Output Total 150 / 150 Balance 270 / 470 680 / 1150 240 / 240 Weight last 48 hrs Weight 49.895 kg Weight 49.895 kg Physical Exam Const: COMMON NORMALS: patient oriented x3 HENMT: COMMON NORMALS: normocephalic and atraumatic HEAD & SCALP: normocephalic and atraumatic Resp: COMMON NORMALS: clear to auscultation bilaterally EFFORT & INSPECTION: Yes symmetric chest movement AUSCULTATION: clear to auscultation bilaterally OTHER: diminished air entry in lt lung rios Cardio: COMMON NORMALS: regular rate, regular rhythm, S1 normal heart sound present, S2 normal heart sound present, No gallops present (Cardio), No murmurs present (Cardio), No rub (Cardio) and Peripheral pulses 2+ throughout RATE: regular rate RHYTHM: regular rhythm HEART SOUNDS: S1 normal heart sound present and S2 normal heart sound present PERIPHERAL PULSES: Peripheral pulses 2+ throughout GI: COMMON NORMALS: Normal to inspection, nondistended, normoactive bowel sounds present, Soft to palpation, non-tender, No hepatosplenomegaly present and no masses AUSCULTATION: Yes normoactive bowel sounds PALPATION: Yes Soft to palpation and Yes No hepatosplenomegaly present RECTAL EXAM: deferred Extremity: COMMON NORMALS: no clubbing, cyanosis or edema and no pedal edema Neuro: COMMON NORMALS: patient oriented x3 Data 12/16/22 03:34 12/16/22 03:34 Micro: Microbiology 12/14/22 22:00 MRSA Culture - Final Nose 12/14/22 23:23 Legionella Urinary Antigen - Final Urine,Voided Bacterial Antigens - Final 12/14/22 17:45 Blood Culture - Preliminary Blood 12/14/22 17:38 Blood Culture - Preliminary Blood A&P Assessment and plan (1) Left lower lobe pneumonia: Qualifiers: Pneumonia type: due to unspecified organism Qualified Code(s): J18.9 - Pneumonia, unspecified organism (2) Pleural effusion on left: (3) Leukocytosis: Qualifiers: Leukocytosis type: unspecified Qualified Code(s): D72.829 - Elevated white blood cell count, unspecified (4) Pulmonary embolism: (5) Hypothyroidism: (6) Hypertension: (7) Constipation: Qualifiers: Constipation type: unspecified constipation type Qualified Code(s): K59.00 - Constipation, unspecified Plan 87 year old female with past medical history of hypertension hypothyroidism, unprovoked pulmonary embolism on long-term Eliquis, recurrent UTI, came in today with chief complaint of lt? upper abdominal pain, chronic cough, likely has worsened in the last few days, with shortness of breath, fever as well as, 1 episode of choking episode by eating at home. Assessment: Sepsis secondary to pneumonia present on admission: Patient meets SIRS criteria: Has high-grade fever, tachycardia tachypnea WBC count greater than 12,000, currently she is source of infection in the form of pneumonia. CT chest abdomen pelvis: Results appreciated Blood culture Urine culture Procalcitonin: 6.39 Sputum Gram stain and culture Urine Legionella antigen: Negative Bacterial antigen panel; negative MRSA PCR: Negative Influenza negative rapid COVID negative On broad-spectrum antibiotics Pneumonia: X-ray chest has shown left sided pleural effusion with left lower lobe pneumonia Follow blood culture Urine culture Procalcitonin Sputum Gram stain and culture Urine Legionella antigen Bacterial antigen panel MRSA PCR Currently she has been started on broad-spectrum antibiotic vancomycin and Zosyn, will tailor antibiotic depending upon the clinical course. A-fib with RVR: Newly diagnosed Patient has a recent echo in August 2022: Which has shown LV systolic function normal with EF of 55 to 60%, mild MR mild TR mild pulmonary hypertension. Cardizem 10 mg IV push one-time dose. Started on p.o. Cardizem 30 every 6 Likely will consider possible amiodarone. She is on therapeutic anticoagulation with Eliquis for her history of PE. Left lower lobe pleural effusion: X-ray chest is showing mild to moderate left lower lobe pleural effusion, could be secondary to pneumonia. Will Plan for thoracentesis. Monitor x-ray chest. History of pulmonary embolism: On Eliquis Persistently elevated white blood cell count: We will get peripheral blood smear reviewed If needed leukemia and lymphoma panel History of hypothyroidism: Continue levothyroxine History of hypertension: losartan and amlodipine on hold Continue Cardizem p.o. for now Constipation: Continue MiraLAX As well as lactulose as needed Attestations Medical Necessity Statement*: Patient is in hospitalized for the management of pneumonia, need for IV antibiotic. Coding Level of Care Code 46338 Diagnoses Left lower lobe pneumonia J18.9 Pneumonia type: due to unspecified organism Pleural effusion on left J90 Leukocytosis D72.829 Leukocytosis type: unspecified Pulmonary embolism I26.99 Hypothyroidism E03.9 Hypertension I10 Constipation K59.00 Constipation type: unspecified constipation type
[2022-12-16] MEDS: levothyroxine 75 mcg Tablet PO (13:16)
[2022-12-16] MEDS: ascorbic acid 500 mg Tablet 1000 MG PO (18:09)
[2022-12-16] MEDS: acetaminophen 325 mg Tablet 650 MG PO (18:12)
[2022-12-16] MEDS: vancomycin 750 MG in sodium chloride 0.9% 250 ML 250 MG IV (20:04)
[2022-12-17] VITALS (7 sets, daily range): BP systolic 109–139; BP diastolic 53–73; PULSE 67–87; RESP 16–25; TEMP 36.6–37.3; O2SAT 90–96
[2022-12-17] MEDS: dilTIAZem 30 mg Tablet PO ×4 (00:13→17:40)
[2022-12-17 01:05] LABS: Add Urine Culture? No; Add Urine Microscopic? YES; Amorphous Sediment Urine 2+ /hpf; Bacteria Urine TRACE /hpf; Bilirubin Urine Neg (Negative); Blood Urine 3+ (Negative); Glucose Urine UA Norm (Normal); Ketones Urine Negative (Negative); Leukocyte Esterase Urine Trace (Negative); Nitrate Urine Negative (Negative); Protein Urine 1+ (Negative); RBC Urine 0-4 /hpf (0-2); Urine Appearance SL Hazy (CLEAR); Urine Color Yellow (Yellow); Urobilinogen Urine Norm (Negative); pH Urine 5 (5-7)
[2022-12-17] MEDS: piperacillin-tazobactam 3.375 GM in sodium chloride 0.9% (plus) 50 ML IV ×3 (03:02→17:40)
[2022-12-17 03:33] LABS: Basophils % 0.2 %; Eosinophils % 0.1 %; Hemoglobin 12.3 g/dL (11.5-15.3); Lymphocytes # 0.6 10^3/uL (0.8-4.8); Lymphocytes % 2.2 %; Mean Corpuscular HGB Conc 31.5 g/dL (30.0-36.0); Mean Corpuscular Hemoglobin 29.1 pg (28.0-34.0); Mean Corpuscular Volume 92.2 fl (81-99); Mean Platelet Volume 11.6 fL (7.4-10.4); Monocytes # 1.3 10^3/uL (0.2-0.9); Monocytes % 4.9 %; Neutrophils # 23.46 10^3/uL (1.8-7.7); Nucleated Red Blood Cells % 0 %; Platelet Count 205 10^3/cmm (130-400); Red Blood Count 4.23 10^6/uL (4.1-5.3); White Blood Count 26.3 10^3/uL (4.0-10.0)
[2022-12-17 04:01] LABS: Alanine Aminotransferase 6 U/L (0-33); Albumin Level 2.8 g/dL (3.5-5.2); Alkaline Phosphatase 73 U/L (35-105); Anion Gap 14.9 (5-19); Aspartate Amino Transferase 11 U/L (0-32); Blood Urea Nitrogen 28 mg/dL (8-23); Calcium 8.8 mg/dL (8.5-10.5); Carbon Dioxide 27 mmol/L (22-29); Chloride 109 mmol/L (98-107); Globulin 2.9 g/dL (1.3-4.6); Glucose 105 mg/dL (65-115); Osmolality Calculated 310 mOsm/kg (285-295); Potassium 3.9 mmol/L (3.5-5.1); Sodium 147 mmol/L (136-145); Total Bilirubin 0.4 mg/dL (0.15-1.2); Total Protein 5.7 g/dL (6.6-8.7)
[2022-12-17] MEDS: acetaminophen 325 mg Tablet 650 MG PO ×2 (12:34→20:41)
[2022-12-17] MEDS: levothyroxine 75 mcg Tablet PO (12:35)
--- NOTE | 2022-12-17 13:49 | PM.PN ---
Subjective Subjective: Patient was seen and examined this morning, has been afebrile, white blood cell count is slowly trending down. Medications: Medication Review Details: Generic Name Dose Route Start Last Admin Trade Name Freq PRN Reason Stop Dose Admin Acetaminophen 650 mg 12/14/22 18:39 12/17/22 12:34 Acetaminophen 32 5 Mg Tablet PO 650 mg Q6H PRN Administration Mild/Mod Pain Or Temp >/= 101 Apixaban 5 mg 12/14/22 21:00 12/15/22 09:56 Apixaban 5 Mg Ta blet PO 5 mg BID TYREE Administration Ascorbic Acid 1,000 mg 12/16/22 18:00 12/17/22 09:07 Ascorbic Acid 50 0 Mg Tablet PO Not Given BID TYREE Diltiazem HCl 30 mg 12/15/22 18:00 12/17/22 12:35 Diltiazem 30 Mg Tablet PO 30 mg Q6H TYREE Administration Piperacillin Sod/T azobactam 50 mls @ 12.5 mls /hr 12/14/22 18:45 12/17/22 12:35 Sod 3.375 gm/ So dium Chloride IV 12.5 mls/hr Q8H TYREE Administration Protocol Vancomycin HCl 750 mg/ Sodium 250 mls @ 250 mls /hr 12/14/22 20:00 12/16/22 22:00 Chloride IV Infused Q24H [facility] Infusion Lanolin 1 applic 12/14/22 22:39 12/14/22 23:27 Lanolin Oint 7 G m TOPICAL 1 applic PRN PRN Administration DRYNESS Levothyroxine Sodi um 75 mcg 12/15/22 13:00 12/17/22 12:35 Levothyroxine 75 Mcg Tablet PO 75 mcg DAILY@1300 TYREE Administration Polyethylene Glyco l 17 gm 12/14/22 21:00 12/16/22 21:36 Polyethylene Gly col 3350 Pkt 17 Gm PO Not Given BEDTIME [facility] Vitals/I&O/Wt Last Vital Signs Temp 98.5 F 12/17/22 12:00 Pulse 87 12/17/22 12:00 Resp 16 12/17/22 12:00 BP 124/71 12/17/22 12:00 Pulse Ox 90 12/17/22 12:00 O2 Del Method 12/16/22 16:00 O2 Flow Rate 1 12/16/22 00:00 12/16/22 12/17/22 12/17/22 22:59 06:59 14:59 Intake Total 830 / 1310 50 / 50 Balance 830 / 1310 50 / 50 Physical Exam Const: COMMON NORMALS: patient oriented x3 HENMT: COMMON NORMALS: normocephalic and atraumatic HEAD & SCALP: normocephalic and atraumatic Resp: COMMON NORMALS: clear to auscultation bilaterally EFFORT & INSPECTION: Yes symmetric chest movement AUSCULTATION: clear to auscultation bilaterally OTHER: diminished air entry in lt lung rios Cardio: COMMON NORMALS: regular rate, regular rhythm, S1 normal heart sound present, S2 normal heart sound present, No gallops present (Cardio), No murmurs present (Cardio), No rub (Cardio) and Peripheral pulses 2+ throughout RATE: regular rate RHYTHM: regular rhythm HEART SOUNDS: S1 normal heart sound present and S2 normal heart sound present PERIPHERAL PULSES: Peripheral pulses 2+ throughout GI: COMMON NORMALS: Normal to inspection, nondistended, normoactive bowel sounds present, Soft to palpation, non-tender, No hepatosplenomegaly present and no masses AUSCULTATION: Yes normoactive bowel sounds PALPATION: Yes Soft to palpation and Yes No hepatosplenomegaly present RECTAL EXAM: deferred Extremity: COMMON NORMALS: no clubbing, cyanosis or edema and no pedal edema Neuro: COMMON NORMALS: patient oriented x3 Data 12/17/22 02:50 12/17/22 02:50 Micro: Microbiology 12/14/22 17:38 Blood Culture - Preliminary Blood 12/14/22 23:23 Legionella Urinary Antigen - Final Urine,Voided Urine Culture - Final Bacterial Antigens - Final A&P Assessment and plan (1) Left lower lobe pneumonia: Qualifiers: Pneumonia type: due to unspecified organism Qualified Code(s): J18.9 - Pneumonia, unspecified organism (2) Pleural effusion on left: (3) Leukocytosis: Qualifiers: Leukocytosis type: unspecified Qualified Code(s): D72.829 - Elevated white blood cell count, unspecified (4) Pulmonary embolism: (5) Hypothyroidism: (6) Hypertension: (7) Constipation: Qualifiers: Constipation type: unspecified constipation type Qualified Code(s): K59.00 - Constipation, unspecified Plan 87 year old female with past medical history of hypertension hypothyroidism, unprovoked pulmonary embolism on long-term Eliquis, recurrent UTI, came in today with chief complaint of lt? upper abdominal pain, chronic cough, likely has worsened in the last few days, with shortness of breath, fever as well as, 1 episode of choking episode by eating at home. Assessment: Sepsis secondary to pneumonia present on admission: Patient meets SIRS criteria: Has high-grade fever, tachycardia tachypnea WBC count greater than 12,000, currently she is source of infection in the form of pneumonia. CT chest abdomen pelvis: Results appreciated Blood culture:NTD Urine culture: Procalcitonin: 6.39 Sputum Gram stain and culture Urine Legionella antigen: Negative Bacterial antigen panel; negative MRSA PCR: Negative Influenza negative rapid COVID negative On broad-spectrum antibiotics vancomycin and Zosyn. Vancomycin was discontinued on 12/17. Pneumonia: X-ray chest has shown left sided pleural effusion with left lower lobe pneumonia Follow blood culture Urine culture Procalcitonin Sputum Gram stain and culture Urine Legionella antigen Bacterial antigen panel MRSA PCR Currently she has been started on broad-spectrum antibiotic vancomycin and Zosyn, will tailor antibiotic depending upon the clinical course. A-fib with RVR: Newly diagnosed Patient has a recent echo in August 2022: Which has shown LV systolic function normal with EF of 55 to 60%, mild MR mild TR mild pulmonary hypertension. Cardizem 10 mg IV push one-time dose. Started on p.o. Cardizem 30 every 6 Likely will consider possible amiodarone. She is on therapeutic anticoagulation with Eliquis for her history of PE. Left lower lobe pleural effusion: X-ray chest is showing mild to moderate left lower lobe pleural effusion, could be secondary to pneumonia. Will Plan for thoracentesis. Monitor x-ray chest. History of pulmonary embolism: On Eliquis Currently on hold for thoracentesis in the morning Persistently elevated white blood cell count: Peripheral blood smear reviewed: No significant abnormality noted. If needed leukemia and lymphoma panel History of hypothyroidism: Follow TSH Continue levothyroxine History of hypertension: losartan and amlodipine on hold Continue Cardizem p.o. for now Constipation: Continue MiraLAX As well as lactulose as needed Attestations Medical Necessity Statement*: Needs to be in hospital for management of sepsis IV antibiotics. Coding Level of Care Code Acute Code for g Fwd Diagnoses Left lower lobe pneumonia J18.9 Pneumonia type: due to unspecified organism Pleural effusion on left J90 Leukocytosis D72.829 Leukocytosis type: unspecified Pulmonary embolism I26.99 Hypothyroidism E03.9 Hypertension I10 Constipation K59.00 Constipation type: unspecified constipation type
--- NOTE | 2022-12-17 13:49 | PC.SOCIAL ---
Pg 2 IMM Explained to pt Pg 2 IMM. No questions voiced. Provided pt a copy. Initialed, dated, & timed a copy & placed in chart.
[2022-12-18] VITALS (10 sets, daily range): BP systolic 119–138; BP diastolic 52–72; PULSE 63–96; RESP 12–28; TEMP 36.4–37; O2SAT 90–94
[2022-12-18] MEDS: dilTIAZem 30 mg Tablet PO ×4 (00:44→18:37)
[2022-12-18] MEDS: piperacillin-tazobactam 3.375 GM in sodium chloride 0.9% (plus) 50 ML IV ×3 (02:26→20:39)
[2022-12-18 05:15] LABS: Basophils # 0.1 10^3/uL (0.0-0.1); Basophils % 0.3 %; Eosinophils % 0.1 %; Hematocrit 37.9 % (37.0-47.0); Hemoglobin 12.1 g/dL (11.5-15.3); Lymphocytes # 0.7 10^3/uL (0.8-4.8); Lymphocytes % 3.1 %; Mean Corpuscular HGB Conc 31.9 g/dL (30.0-36.0); Mean Corpuscular Volume 93.8 fl (81-99); Mean Platelet Volume 11.4 fL (7.4-10.4); Monocytes # 1.2 10^3/uL (0.2-0.9); Monocytes % 5.3 %; Neutrophils # 20.13 10^3/uL (1.8-7.7); Neutrophils % 90.6 %; Nucleated Red Blood Cells % 0 %; Platelet Count 242 10^3/cmm (130-400); Red Blood Count 4.04 10^6/uL (4.1-5.3); Red Cell Distribution Width 14.4 % (12.1-15.1); White Blood Count 22.3 10^3/uL (4.0-10.0)
[2022-12-18 05:35] LABS: Blood Urea Nitrogen 30 mg/dL (8-23); Calcium 8.4 mg/dL (8.5-10.5); Carbon Dioxide 28 mmol/L (22-29); Chloride 113 mmol/L (98-107); Glucose 102 mg/dL (65-115); Osmolality Calculated 314 mOsm/kg (285-295); Sodium 149 mmol/L (136-145)
[2022-12-18 05:41] LABS: Procalcitonin 1.79 ng/mL (0-0.5)
[2022-12-18 05:43] LABS: Thyroid Stimulating Hormone 3.02 uIU/mL (0.27-4.20)
--- NOTE | 2022-12-18 06:00 | US_ITS ---
WS: [id number] ULTRASOUND-GUIDED THORACENTESIS CLINICAL INFORMATION: LT PLEURAL EFFUSION COMPARISON: None. PROCEDURE: Informed consent: The risks, benefits, and alternatives of the procedure were discussed with the naresh ent. Verbal and written consent was obtained. Timeout: A timeout was performed to confirm the correct patient, procedure, and site. Site: LEFT Preparation: A suitable skin site was identified. The patient was prepped and draped in usual sterile fashion. Lidocaine 1% was used for local anesthesia. Catheter: 4 [place] One-Step catheter. Fluid Volume: 1000 ml Color: Clear yellow 50 cc sent to the lab for further analysis. Complications: No pneumothorax on the portable radiograph post thoracentesis US/US thoracentesis 19002 IMPRESSION:. Uncomplicated ultrasound-guided thoracentesis with removal of 1000 cc.
--- NOTE | 2022-12-18 09:22 | PC.NURSE ---
Patient states she doesn't want to take the vitamin C if she doesn't take the other med to go with it.
[2022-12-18 11:28] LABS: Iron 29 ug/dL (37-145); Percent Saturation 19.4 % (20-50); Total Iron Binding Capacity 149 mcg/dl; Unsaturated Iron Binding 120 ug/dL (112-347); Vitamin B12 318 pg/mL (232-1245)
[2022-12-18 11:39] LABS: Folate Level 13.7 ng/mL (4.8-37.3)
[2022-12-18] MEDS: levothyroxine 75 mcg Tablet PO (12:26)
--- NOTE | 2022-12-18 13:59 | P.PN_ITS ---
Subjective Subjective: Hospital course, labs appreciated seen with family at bedside. Patient denies any nausea, vomiting, headache. On 1 L oxygen supplementation saturating more than 92%. States she previously at home uses oxygen only at night while sleeping. States usually at home oxygen is higher though she is not aware how much. Has remained afebrile. Vitals/I&O/Wt Last Vital Signs Temp 97.8 F 12/18/22 11:48 Pulse 81 12/18/22 11:48 Resp 28 H 12/18/22 11:48 BP 137/68 12/18/22 11:48 Pulse Ox 94 12/18/22 11:48 O2 Del Method 12/18/22 11:48 O2 Flow Rate 1 12/18/22 11:48 12/17/22 12/18/22 12/18/22 22:59 06:59 14:59 Intake Total 520 / 690 50 / 740 Output Total 200 / 200 Balance 520 / 690 -150 / 540 Physical Exam Const: COMMON NORMALS: patient oriented x3 HENMT: COMMON NORMALS: normocephalic and atraumatic HEAD & SCALP: normocephalic and atraumatic Resp: COMMON NORMALS: clear to auscultation bilaterally EFFORT & INSPECTION: Yes symmetric chest movement AUSCULTATION: clear to auscultation bilaterally OTHER: diminished air entry in lt lung rios Cardio: COMMON NORMALS: regular rate, regular rhythm, S1 normal heart sound present, S2 normal heart sound present, No gallops present (Cardio), No murmurs present (Cardio), No rub (Cardio) and Peripheral pulses 2+ throughout RATE: regular rate RHYTHM: regular rhythm HEART SOUNDS: S1 normal heart sound present and S2 normal heart sound present PERIPHERAL PULSES: Peripheral pulses 2+ throughout GI: COMMON NORMALS: Normal to inspection, nondistended, normoactive bowel sounds present, Soft to palpation, non-tender, No hepatosplenomegaly present and no masses AUSCULTATION: Yes normoactive bowel sounds PALPATION: Yes Soft to palpation and Yes No hepatosplenomegaly present RECTAL EXAM: deferred : COMMON NORMALS: Yes no CVA tenderness BLADDER/KIDNEY EXAM: Yes no CVA tenderness Back/Pelvis: COMMON NORMALS: no CVA tenderness Extremity: COMMON NORMALS: no clubbing, cyanosis or edema and no pedal edema Neuro: COMMON NORMALS: patient oriented x3 Data 12/18/22 04:32 12/18/22 04:32 Micro: Microbiology 12/14/22 17:45 Blood Culture - Final Blood Streptococcus pneumoniae 12/14/22 17:38 Blood Culture - Final Blood Streptococcus pneumoniae 12/18/22 00:10 Legionella Urinary Antigen - Final Unknown Source 12/18/22 00:10 Bacterial Antigens - Final Urine Kidney 12/17/22 18:04 Blood Culture - Preliminary Blood SPECIMEN COLLECTED 12/17/22 18:09 Blood Culture - Preliminary Blood SPECIMEN COLLECTED 12/14/22 23:23 Legionella Urinary Antigen - Final Urine,Voided Urine Culture - Final Bacterial Antigens - Final A&P Assessment and plan (1) Left lower lobe pneumonia: Qualifiers: Pneumonia type: due to unspecified organism Qualified Code(s): J18.9 - Pneumonia, unspecified organism (2) Bacteremia due to Streptococcus pneumoniae: (3) Pleural effusion on left: (4) Hypernatremia: (5) Leukocytosis: Qualifiers: Leukocytosis type: unspecified Qualified Code(s): D72.829 - Elevated white blood cell count, unspecified (6) Pulmonary embolism: (7) Hypothyroidism: (8) Hypertension: (9) Constipation: Qualifiers: Constipation type: unspecified constipation type Qualified Code(s): K59.00 - Constipation, unspecified Plan 87 year old female with past medical history of hypertension hypothyroidism, unprovoked pulmonary embolism on long-term Eliquis, recurrent UTI, came in today with chief complaint of lt? upper abdominal pain, chronic cough, likely has worsened in the last few days, with shortness of breath, fever as well as, 1 episode of choking episode by eating at home. Assessment: Sepsis secondary to pneumonia present on admission: Streptococcus bacteremia: Blood culture from admission positive for Streptococcus. Repeat blood culture sent on so far negative. MRSA swab negative. Potential source of pneumonia versus possible empyema. Patient continues to have persistent leukocytosis even on adequate antibiotics. Plan for thoracentesis today. We will follow-up fluid studies. If concerns for empyema on fluid studies we will plan for chest tube placement. Continue with Zosyn. Sputum culture pending. Oxygen supplementation keeping saturation over 90%. Switch DuoNebs to ipratropium, Xopenex every 6 hourly. Add Pulmicort twice daily. A-fib with RVR: Newly diagnosed Echocardiogram from August 2022: Which has shown LV systolic function normal with EF of 55 to 60%, mild MR mild TR mild pulmonary hypertension. Continue with Cardizem 30 mg every 6 hourly. We will continue to monitor blood pressures and will consolidate on discharge. Continue with home dose of Eliquis for anticoagulation. Currently on with hold for thoracentesis. Hypernatremia: Most likely in setting of poor oral intake. Start on D5 NS at 75 cc/h for 1 bag. Repeat BMP in AM. History of pulmonary embolism: On Eliquis Currently on hold for thoracentesis in the morning History of hypothyroidism: Continue levothyroxine History of hypertension: Goal blood pressure less than 140/90 mmHg. Patient takes amlodipine 5 mg and losartan 100 mg at home. Currently medications on hold. Continue with Cardizem as above. Blood pressure well controlled. We will c ontinue to monitor. Constipation: Continue MiraLAX, milk of magnesia. As well as lactulose as needed Full code. Currently NPO. Will restart on cardiac diet. Eliquis will suffice as DVT prophylaxis. Famotidine for PUD prophylaxis. Attestations Medical Necessity Statement*: Requires further hospitalization for management of sepsis, Streptococcus pneumonia bacteremia in setting of pneumonia and left-sided pleural effusion requiring thoracentesis with concerns for empyema Diagnoses Left lower lobe pneumonia J18.9 Pneumonia type: due to unspecified organism Bacteremia due to Streptococcus pneumoniae R78.81; B95.3 Pleural effusion on left J90 Hypernatremia E87.0 Leukocytosis D72.829 Leukocytosis type: unspecified Pulmonary embolism I26.99 Hypothyroidism E03.9 Hypertension I10 Constipation K59.00 Constipation type: unspecified constipation type
--- NOTE | 2022-12-18 15:14 | XR_ITS ---
WS: [id number] Portable AP upright chest, 12/18/2022 Clinical Data: post thora Comparison: Portable chest, 12/14/2022 Findings: There is been a moderate decrease in the left pleural effusion. No pneumothorax is seen. Th e right lung remains clear. The heart size is the same. The aortic arch and descending thoracic aorta show calcification. There are monitor leads on the chest wall. There is an old left sixth rib fractu re. XR/XR chest 1V portable [id number] Impression: Moderate decrease in left pleural effusion.
[2022-12-18] MEDS: dextrose 5%-sod chloride 0.9% 1,000 ML 75 ML IV (15:32)
[2022-12-18 15:56] LABS: Appearance, Pleural Fluid CLOUDY (CLEAR); Color, Pleural Fluid Yellow (Pale Yellow)
[2022-12-18 15:57] LABS: Cyto Order Verification Order Verified; Mononuclear %, Pleural Fluid 27 %; Polynuclear Cells, Pleural % 73 %
[2022-12-18 16:50] LABS: Lactate Dehydrogenase 276 U/L (135-214)
[2022-12-18 17:05] LABS: LDH Pleural Fluid 2137 U/L; PATH Referal YES; Total Protein Pleural Fluid 3.5 g/dL
[2022-12-18 17:10] LABS: Pleural Fluid Albumin 2.2 g/dL
[2022-12-18] MEDS: levalbuterol 0.63 mg/3 mL Neb INHALATION (20:01)
[2022-12-18] MEDS: ipratropium 0.5 mg/2.5 mL Neb INHALATION (20:01)
[2022-12-18] MEDS: budesonide 0.5 mg/2 mL Neb INHALATION (20:01)
[2022-12-19] VITALS (8 sets, daily range): BP systolic 125–150; BP diastolic 62–67; PULSE 69–84; RESP 15–17; TEMP 36.6–36.9; O2SAT 89–97
[2022-12-19] MEDS: dilTIAZem 30 mg Tablet PO ×4 (00:04→17:03)
[2022-12-19] MEDS: piperacillin-tazobactam 3.375 GM in sodium chloride 0.9% (plus) 50 ML IV (05:05)
[2022-12-19 05:44] LABS: Basophils % 0.2 %; Eosinophils # 0.1 10^3/uL (0.0-0.8); Eosinophils % 0.6 %; Hematocrit 37.5 % (37.0-47.0); Hemoglobin 11.7 g/dL (11.5-15.3); Lymphocytes # 0.8 10^3/uL (0.8-4.8); Lymphocytes % 5.6 %; Mean Corpuscular HGB Conc 31.2 g/dL (30.0-36.0); Mean Corpuscular Volume 92.8 fl (81-99); Mean Platelet Volume 10.8 fL (7.4-10.4); Monocytes # 0.9 10^3/uL (0.2-0.9); Monocytes % 6.6 %; Neutrophils # 12.05 10^3/uL (1.8-7.7); Neutrophils % 85.9 %; Nucleated Red Blood Cells % 0 %; Platelet Count 299 10^3/cmm (130-400); Red Blood Count 4.04 10^6/uL (4.1-5.3); Red Cell Distribution Width 14.5 % (12.1-15.1)
[2022-12-19 06:01] LABS: Alanine Aminotransferase 6 U/L (0-33); Albumin Level 2.5 g/dL (3.5-5.2); Alkaline Phosphatase 57 U/L (35-105); Anion Gap 8.4 (5-19); Aspartate Amino Transferase 11 U/L (0-32); Blood Urea Nitrogen 27 mg/dL (8-23); Calcium 8.6 mg/dL (8.5-10.5); Carbon Dioxide 30 mmol/L (22-29); Chloride 114 mmol/L (98-107); Chol HDL Ratio 5.95 mg/dL (0.0-4.40); Cholesterol 113 mg/dL (0-200); Globulin 3.1 g/dL (1.3-4.6); Glucose 97 mg/dL (65-115); HDL Cholesterol 19 mg/dL (60-100); LDL Cholesterol Calculated 65 mg/dL (50-129); Osmolality Calculated 313 mOsm/kg (285-295); Potassium 3.4 mmol/L (3.5-5.1); Sodium 149 mmol/L (136-145); Total Bilirubin 0.4 mg/dL (0.15-1.2); Total Protein 5.6 g/dL (6.6-8.7); Triglycerides 145 mg/dL (0-150); VLDL Cholestrol Calculation 29 mg/dL (0-30)
[2022-12-19 06:20] LABS: Estmated Average Glucose 94; Hemoglobin A1C 4.9 % (4.0-6.0)
[2022-12-19] MEDS: apixaban 5 mg Tablet PO (08:44)
[2022-12-19] MEDS: dextrose 5% + KCl 20 mEq 20 MEQ/1,000 ML BAG 75 MEQ IV (09:55)
[2022-12-19] MEDS: cefTRIAXone 2,000 MG in sodium chloride 0.9% (plus) 50 ML 100 MG IV (12:34)
[2022-12-19] MEDS: levothyroxine 75 mcg Tablet PO (12:36)
--- NOTE | 2022-12-19 14:24 | PC.SOCIAL ---
IMM Update pg 2 of IMM updated and reviewed w/ patient. Copy provided and copy in chart dated, and initialed.
--- NOTE | 2022-12-19 14:36 | PM.PN ---
Subjective Subjective: No acute events overnight. Patient has remained hemodynamically stable and afebrile. Today morning seen sitting in chair with family at bedside. Underwent thoracentesis yesterday and 1000 cc of yellow-colored fluid was drained. Patient remains on room air saturating more than 95%. Vitals/I&O/Wt Last Vital Signs Temp 98 F 12/19/22 11:51 Pulse 84 12/19/22 11:51 Resp 15 12/19/22 11:51 BP 132/62 12/19/22 11:51 Pulse Ox 97 12/19/22 11:51 O2 Del Method 12/19/22 09:10 O2 Flow Rate 1 12/19/22 08:00 12/18/22 12/19/22 12/19/22 22:59 06:59 14:59 Intake Total 1050 / 1100 420 / 420 Output Total 100 / 100 250 / 250 Balance 950 / 1000 170 / 170 Physical Exam Const: COMMON NORMALS: patient oriented x3 HENMT: COMMON NORMALS: normocephalic and atraumatic HEAD & SCALP: normocephalic and atraumatic Resp: COMMON NORMALS: clear to auscultation bilaterally EFFORT & INSPECTION: Yes symmetric chest movement AUSCULTATION: clear to auscultation bilaterally OTHER: Air entry in left lung improved but diminished in bases Cardio: COMMON NORMALS: regular rate, regular rhythm, S1 normal heart sound present, S2 normal heart sound present, No gallops present (Cardio), No murmurs present (Cardio), No rub (Cardio) and Peripheral pulses 2+ throughout RATE: regular rate RHYTHM: regular rhythm HEART SOUNDS: S1 normal heart sound present and S2 normal heart sound present PERIPHERAL PULSES: Peripheral pulses 2+ throughout GI: COMMON NORMALS: Normal to inspection, nondistended, normoactive bowel sounds present, Soft to palpation, non-tender, No hepatosplenomegaly present and no masses AUSCULTATION: Yes normoactive bowel sounds PALPATION: Yes Soft to palpation and Yes No hepatosplenomegaly present RECTAL EXAM: deferred : COMMON NORMALS: Yes no CVA tenderness BLADDER/KIDNEY EXAM: Yes no CVA tenderness Back/Pelvis: COMMON NORMALS: no CVA tenderness Extremity: COMMON NORMALS: no clubbing, cyanosis or edema and no pedal edema Neuro: COMMON NORMALS: patient oriented x3 Data 12/19/22 05:09 12/19/22 05:09 Micro: Microbiology 12/17/22 15:10 Gram Stain - Final Ankle - Thoracentesis Body Fluid Culture - Preliminary 12/17/22 18:09 Blood Culture - Preliminary Blood NEGATIVE TO DATE 12/17/22 18:04 Blood Culture - Preliminary Blood NEGATIVE TO DATE 12/14/22 17:45 Blood Culture - Final Blood Streptococcus pneumoniae 12/14/22 17:38 Blood Culture - Final Blood Streptococcus pneumoniae 12/18/22 00:10 Legionella Urinary Antigen - Final Unknown Source 12/18/22 00:10 Bacterial Antigens - Final Urine Kidney A&P Assessment and plan (1) Left lower lobe pneumonia: Qualifiers: Pneumonia type: due to unspecified organism Qualified Code(s): J18.9 - Pneumonia, unspecified organism (2) Bacteremia due to Streptococcus pneumoniae: (3) Empyema of lung: (4) Pleural effusion on left: (5) Hypernatremia: (6) Leukocytosis: Qualifiers: Leukocytosis type: unspecified Qualified Code(s): D72.829 - Elevated white blood cell count, unspecified (7) Pulmonary embolism: (8) Hypothyroidism: (9) Hypertension: (10) Constipation: Qualifiers: Constipation type: unspecified constipation type Qualified Code(s): K59.00 - Constipation, unspecified Plan 87 year old female with past medical history of hypertension hypothyroidism, unprovoked pulmonary embolism on long-term Eliquis, recurrent UTI, came in today with chief complaint of lt? upper abdominal pain, chronic cough, likely has worsened in the last few days, with shortness of breath, fever as well as, 1 episode of choking episode by eating at home. Assessment: Sepsis secondary to pneumonia present on admission: Streptococcus bacteremia: Blood culture from admission positive for Streptococcus. Repeat blood culture sent on so far negative. MRSA swab negative. Pleural fluid consistent with possible empyema. Elevated pleural fluid LDH and white count with pH of 8. Appreciate pulmonary recommendations. Plan for repeat thoracentesis versus chest tube placement given improvement in leukocytosis over last 24-hour after thoracentesis and as per ultrasound of the chest examination. As per culture sensitivities switch patient to IV ceftriaxone. Possible history of allergies with cephalosporin which patient does not remember. Discussed in detail with patient and patient's family at bedside. They are agreeable for trial of ceftriaxone. Plan for IV antibiotic as an outpatient for overall 4 weeks and outpatient pulmonology follow-up. PICC line placement. Oxygen supplementation keeping saturation over 90%. Switch DuoNebs to ipratropium, Xopenex every 6 hourly. Add Pulmicort twice daily. A-fib with RVR: Newly diagnosed Echocardiogram from August 2022: Which has shown LV systolic function normal with EF of 55 to 60%, mild MR mild TR mild pulmonary hypertension. Continue with Cardizem 30 mg every 6 hourly. We will continue to monitor blood pressures and will consolidate on discharge. Continue with home dose of Eliquis for anticoagulation. Currently on with hold for thoracentesis. Hypernatremia: Most likely in setting of poor oral intake. Continue with D5W with 20 mg of potassium at 75 cc/h. Repeat BMP in AM. History of pulmonary embolism: On Eliquis Currently on hold for thoracentesis in the morning History of hypothyroidism: Continue levothyroxine History of hypertension: Goal blood pressure less than 140/90 mmHg. Patient takes amlodipine 5 mg and losartan 100 mg at home. Currently medications on hold. Continue with Cardizem as above. Blood pressure well controlled. We will continue to monitor. Constipation: Continue MiraLAX, milk of magnesia. As well as lactulose as needed Full code. Currently NPO. Will restart on cardiac diet. Eliquis will suffice as DVT prophylaxis. Famotidine for PUD prophylaxis. Attestations Medical Necessity Statement*: Requires further hospitalization for management of Streptococcus bacteremia in setting of left-sided empyema and pneumonia, new atrial fibrillation with rapid ventricular response and hypernatremia Diagnoses Left lower lobe pneumonia J18.9 Pneumonia type: due to unspecified organism Bacteremia due to Streptococcus pneumoniae R78.81; B95.3 Empyema of lung J86.9 Pleural effusion on left J90 Hypernatremia E87.0 Leukocytosis D72.829 Leukocytosis type: unspecified Pulmonary embolism I26.99 Hypothyroidism E03.9 Hypertension I10 Constipation K59.00 Constipation type: unspecified constipation type
--- NOTE | 2022-12-19 18:32 | XRR_ITS ---
PROCEDURE INFORMATION: Exam: XR Chest Exam date and time: 12/19/2022 6:46 PM Age: 87 years old Clinical indication: Abnormal findings; Abnormal radiologic exam of lung or chest; Additional info: Post left thoracentesis TECHNIQUE: Imaging protocol: Radiologic exam of the chest. Views: 1 view. COMPARISON: CR XR chest 1V portable [id number] 12/14/2022 4:[address] angio chest 09/20/2022 FINDINGS: Lungs: New 8 mm nodular density in the peripheral right upper lobe. Stable consolidation in the left lung base. Changes of emphysema. Pleural spaces: Stable moderate left pleural effusion. No pneumothorax. Heart/Mediastinum: Unremarkable. No cardiomegaly. Bones/joints: Unremarkable. XR/XR chest 1V portable [id number] IMPRESSION: 1. Stable left base consolidation and pleural effusion. 2. New 8 mm nodular density in the peripheral right upper lobe is most likely infectious, and was not present on the prior CT chest. Radiographic follow-up to document resolution recommended.
--- NOTE | 2022-12-19 18:34 | P.CONIM_ITS ---
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 She complained in the emergency room that she had a choking event and the day before admission while eating followed by coughing fits, fever spikes. Chest x-ray in the emergency room showed small to moderate left lower lobe effusion suspicious for left lower lobe pneumonia. Patient was admitted for management of left lower lobe pneumonia causing pleural effusion. She met sepsis criteria initially with WBC greater than 12,000, procalcitonin 6.39,She was covered with vancomycin and Zosyn. CT angiogram showing moderate left pleural effusion with compressive atelectasis of left lung base. There is centrilobular emphysema with scattered opacifications. There is partial filling defect in distal right subsegmental pulmonary artery. Patient was on Eliquis after being diagnosed with occlusive PE on right lung in August 2022. Her Eliquis was stopped in anticipation of thoracentesis-on 12/18/2022 she underwent diagnostic/therapeutic thoracentesis with removal of 1000 cc clear yellow fluid. Pleural pH 8 (falsely elevated due to lidocaine), WBC 2088, neutrophilic predominant, total protein 3.5, LDH 2137, pleural glucose 37-all consistent with neutrophilic predominant exudative-possible empyema. Meanwhile-Blood cultures from admission showed a pansensitive strep pneumonia. MRSA nares were negative. Legionella antigen is negative. DC'd vancomycin and Zosyn and started on Rocephin 2 g once daily. Pulmonary consult requested for consideration for chest tube placement given possible empyema. Today morning of seen patient at bedside sitting in her chair, on 1 L supplemental oxygen saturating 95% She reported that her energy and breathing is significantly improved since admission She is current everyday smoker smoking half pack per day. Review of her labs showed no fever spikes in the last 4 days, procalcitonin down to 1.79, WBC count down from 27 K to 14 K. Bedside ultrasound examination today morning showed a pocket of small to moderate pleural effusion with fibrinous tissue forming satellite small locules Other labs and imaging reviewed Medications/Allergies Home Medications Medication Instructions Recorded Confirmed Last Taken Type amlodipine 5 mg tablet 5 mg PO BID 03/05/20 12/14/22 08/03/20 History losartan 100 mg tablet 100 mg PO DAILY 03/05/20 12/14/22 09/19/22 History polyethylene glycol 3350 17 gram 17 g PO BEDTIME 03/31/20 12/14/22 08/02/20 History oral powder packet (Miralax) ascorbic acid (vitamin C) 500 mg 1,000 mg PO BID 09/20/22 12/14/22 Unknown History tablet (Vitamin C) levothyroxine 75 mcg tablet 75 mcg PO DAILY@13 09/20/22 12/14/22 Unknown History methenamine hippurate 1 gram tablet 1 g PO BID #180 tabs 10/19/22 12/14/22 Unknown Rx apixaban 5 mg (74 tabs) tablets in 5 mg PO BID 12/14/22 12/14/22 Unknown History a dose pack (Eliquis DVT-PE Treat 30D Start) Allergies Allergy/AdvReac Type Severity Reaction Status Date / Time Cephalosporins Allergy Severe swelling Verified 10/24/22 11:48 of throat ciprofloxacin [From Cipro] Allergy Severe swelling Verified 10/24/22 11:48 of throat and mouth Sulfa (Sulfonamide Allergy Severe swelling Verified 10/24/22 11:48 Antibiotics) of throat cefdinir Allergy Unknown Verified 10/24/22 11:48 nitrofurantoin Allergy Unknown Verified 10/24/22 11:48 [From Macrobid] Current Medications Generic Name Dose Route Start Last Admin Trade Name Freq PRN Reason Stop Dose Admin Acetaminophen 650 mg 12/14/22 18:39 12/17/22 20:41 Acetaminophen 325 Mg Tablet PO 650 mg Q6H PRN Administration Mild/Mod Pain Or Temp >/= 101 Apixaban 5 mg 12/14/22 21:00 12/19/22 16:33 Apixaban 5 Mg Tablet PO Not Given BID TYREE Ascorbic Acid 1,000 mg 12/16/22 18:00 12/19/22 16:34 Ascorbic Acid 500 Mg Tablet PO Not Given BID TYREE Budesonide 0.5 mg 12/18/22 20:00 12/19/22 09:15 Budesonide 0.5 Mg/2 Ml Neb INHALATION Not Given BID.RESPIRATORY TYREE Diltiazem HCl 30 mg 12/15/22 18:00 12/19/22 17:03 Diltiazem 30 Mg Tablet PO 30 mg Q6H TYREE Administration Potassium Chloride/Dextrose 20 meq in 1,000 mls @ 75 mls/hr 12/19/22 08:45 12/19/22 09:55 Dextrose 5% + Kcl 20 Meq IV 12/19/22 22:04 75 mls/hr .[id number] TYREE Administration Ceftriaxone Sodium 2,000 mg/ 50 mls @ 100 mls/hr 12/19/22 11:00 12/19/22 13:16 Sodium Chloride IV Infused Q24H TYREE Infusion Protocol Ipratropium [place] 0.5 mg 12/18/22 14:00 12/19/22 14:12 Ipratropium 0.5 Mg/2.5 Ml Neb INHALATION Not Given Q6H.RESP TYREE Lanolin 1 applic 12/14/22 22:39 12/14/22 23:27 Lanolin Oint 7 Gm TOPICAL 1 applic PRN PRN Administration DRYNESS Levalbuterol HCl 0.63 mg 12/18/22 14:00 12/19/22 14:12 Levalbuterol 0.63 Mg/3 Ml Neb INHALATION Not Given Q6H.RESP TYREE Levothyroxine Sodium 75 mcg 12/15/22 13:00 12/19/22 12:36 Levothyroxine 75 Mcg Tablet PO 75 mcg DAILY@1300 TYREE Administration Polyethylene Glycol 17 gm 12/14/22 21:00 12/18/22 20:42 Polyethylene Glycol 3350 Pkt 17 Gm PO Not Given BEDTIME TYREE PFSH Acute PFSH: Medical History Chronic UTI Cystitis cystica Elevated bilirubin Hypertension Hypothyroidism Pulmonary embolism Recurrent UTI Surgical History H/O bladder repair surgery Mesh erosion excision, anterior colporrhaphy augmented with allograft performed by Dr. Smalls at [facility] on 03/31/2020 H/O eye surgery right H/O vaginal surgery 08/04/2020- vaginal sling revision performed by Dr. Smalls at [facility] H/O: hysterectomy 1977 Family History Sister Lung cancer Hypertension Stroke Thyroid condition Ovarian cancer, Onset Age: 64 Brother Hypertension Stroke Mother , at age 95 No problems noted. Father , at age 32 Drowning Denies family history of Colon cancer Diabetes Clotting disorder Hyperlipidemia Breast cancer Anesthesia complication Bleeding disorder Uterine cancer Social History Smoking and tobacco status: current every day smoker cigarettes Packs smoked per day: 0.5 Alcohol intake: never Household members: spouse Marital status: Current occupational status: retired Vitals/I&O/Wt Last Vital Signs Temp 98 F 12/19/22 11:51 Pulse 82 12/19/22 16:00 Resp 17 12/19/22 16:00 BP 150/67 12/19/22 16:00 Pulse Ox 93 12/19/22 16:00 O2 Del Method 12/19/22 09:10 O2 Flow Rate 1 12/19/22 08:00 12/19/22 12/19/22 12/19/22 06:59 14:59 22:59 Intake Total 1050 / 1100 420 / 420 Output Total 100 / 100 250 / 250 Balance 950 / 1000 170 / 170 Physical Exam Narrative: General: alert, NAD HEENT: conj clear, EOMI, PERRL, mmm, Neck: supple, no meningismus Heme: no cervical LAP Respiratory: Inspection: No visible deformity of the chest wall Palpation: Trachea is mildly deviated to the right, bilateral symmetric expansion Percussion: Reduced tympanic percussion note on left lower lung zone Auscultation: Reduced breath sounds on left lower lung zone Cardiovascular: rrr, nl s1s2, no mrg Abdomen: soft, nt, nd, no r/g, bs+ Extremities: pulses +, no edema, no c/c : no CVA tenderness Skin: intact, no rash MSK: no back or neck pain Neurologic: grossly intact Data 12/19/22 05:09 12/19/22 05:09 Other Labs: Radiology Impressions Abdomen X-Ray 12/14/22 16:22 IMPRESSION: 1. Constipation without bowel dilation to indicate obstruction. 2. Degenerative changes throughout the spine. 3. Scattered vascular calcifications. Chest/Abdomen/Pelvis CTA 12/15/22 10:10 IMPRESSION: 1. Extensive atherosclerotic plaque throughout the thoracic and abdominal aortas. No dissection or significant aneurysm. Marked aortic ectasia and heavy atherosclerotic plaque. 2. Atherosclerotic plaque continues into the proximal great vessels and also into the mesenteric and renal arteries. 3. Moderate LEFT pleural effusion with compressive atelectasis at the LEFT lung base. 4. Centrilobular emphysema with scattered opacifications. Probably on the basis of pneumonitis. No dense consolidation. 5. Marked constipation. 6. Single partial filling defect in the distal RIGHT subsegmental pulmonary artery. Age-indeterminate pulmonary emboli. No large central pulmonary emboli. Thoracentesis Ultrasound 12/18/22 06:00 IMPRESSION:. Uncomplicated ultrasound-guided thoracentesis with removal of 1000 cc. Laboratory Results WBC 14.0 10^3/uL (4.0-10.0) H 12/19/22 05:09 RBC 4.04 10^6/uL (4.1-5.3) L 12/19/22 05:09 Hgb 11.7 g/dL (11.5-15.3) 12/19/22 05:09 Hct 37.5 % (37.0-47.0) 12/19/22 05:09 MCV 92.8 fl (81-99) 12/19/22 05:09 MCH 29.0 pg (28.0-34.0) 12/19/22 05:09 MCHC 31.2 g/dL (30.0-36.0) 12/19/22 05:09 RDW 14.5 % (12.1-15.1) 12/19/22 05:09 Plt Count 299 10^3/cmm (130-400) 12/19/22 05:09 MPV 10.8 fL (7.4-10.4) H 12/19/22 05:09 Neut % (Auto) 85.9 % 12/19/22 05:09 Lymph % (Auto) 5.6 % 12/19/22 05:09 [place] % (Auto) 6.6 % 12/19/22 05:09 Eos % (Auto) 0.6 % 12/19/22 05:09 Baso % (Auto) 0.2 % 12/19/22 05:09 Neut # (Auto) 12.05 10^3/uL (1.8-7.7) H 12/19/22 05:09 Lymph # (Auto) 0.8 10^3/uL (0.8-4.8) 12/19/22 05:09 [place] # (Auto) 0.9 10^3/uL (0.2-0.9) 12/19/22 05:09 Eos # (Auto) 0.1 10^3/uL (0.0-0.8) 12/19/22 05:09 Baso # (Auto) 0.0 10^3/uL (0.0-0.1) 12/19/22 05:09 Nucleated RBC % (auto) 0 % 12/19/22 05:09 Total Counted Not Reportable 12/17/22 15:10 Atypical Lymphs % 3.0 % (0-5) 12/15/22 04:38 Absolute Neutrophils 18.3 10^3/cmm (1.4-6.5) H 12/15/22 04:38 Segmented Neutrophils 66 % 12/15/22 04:38 Abs Segm Neuts (Man) 18.3 10/cmm (1.6-7.1) H 12/15/22 04:38 Band Neutrophils 0.0 % 12/15/22 04:38 Abs Band Neuts (Man) 0.0 10^3/cmm (0.0-1.2) 12/15/22 04:38 Absolute Lymphocytes 9.1 10^3/cmm (1.2-3.4) H 12/15/22 04:38 Lymphocytes (Manual) 30 % 12/15/22 04:38 Monocytes (Manual) 1.0 % 12/15/22 04:38 Absolute Monocytes 0.3 10^3/cmm (0.1-0.6) 12/15/22 04:38 Eosinophils (Manual) 0 % 12/15/22 04:38 Absolute Eosinophils 0.0 10^3/cmm (0.0-0.7) 12/15/22 04:38 Basophils (Manual) 0.0 % 12/15/22 04:38 Absolute Basophils 0.0 10^3/cmm (0.0-0.2) 12/15/22 04:38 Nucleated RBCs # 0.0 /100WBC 12/19/22 05:09 Platelet Estimate Normal (Normal) 12/15/22 04:38 PT 15.60 SECONDS (12.1-14.9) H 12/18/22 04:32 INR 1.20 (0.8-1.2) 12/18/22 04:32 Sodium 149 mmol/L (136-145) H 12/19/22 05:09 Potassium 3.4 mmol/L (3.5-5.1) L 12/19/22 05:09 Chloride 114 mmol/L (98-107) H 12/19/22 05:09 Carbon Dioxide 30 mmol/L (22-29) H 12/19/22 05:09 Anion Gap 8.4 (5-19) 12/19/22 05:09 BUN 27 mg/dL (8-23) H 12/19/22 05:09 Creatinine 0.6 mg/dL (0.5-0.9) 12/19/22 05:09 GFR Calculation Not Reportable 12/19/22 05:09 Glucose 97 mg/dL (65-115) 12/19/22 05:09 Estimat Average Glucose 94 12/19/22 05:09 Hemoglobin A1c 4.9 % (4.0-6.0) 12/19/22 05:09 Calculated Osmolality 313 mOsm/kg (285-295) H 12/19/22 05:09 Lactic Acid 1.2 mmol/L (0.5-2.2) 12/14/22 17:45 Calcium 8.6 mg/dL (8.5-10.5) 12/19/22 05:09 Magnesium 2.0 mg/dL (1.7-2.3) 12/15/22 04:38 Iron 29 ug/dL (37-145) L 12/18/22 04:32 TIBC 149 mcg/dl 12/18/22 04:32 % Saturation 19.4 % (20-50) L 12/18/22 04:32 Unsat Iron Binding 120 ug/dL (112-347) 12/18/22 04:32 Total Bilirubin 0.4 mg/dL (0.15-1.2) 12/19/22 05:09 AST 11 U/L (0-32) 12/19/22 05:09 ALT 6 U/L (0-33) 12/19/22 05:09 Alkaline Phosphatase 57 U/L (35-105) 12/19/22 05:09 Lactate Dehydrogenase 276 U/L (135-214) H 12/18/22 04:32 Total Protein 5.6 g/dL (6.6-8.7) L 12/19/22 05:09 Albumin 2.5 g/dL (3.5-5.2) L 12/19/22 05:09 Globulin 3.1 g/dL (1.3-4.6) 12/19/22 05:09 Triglycerides 145 mg/dL (0-150) 12/19/22 05:09 Cholesterol 113 mg/dL (0-200) 12/19/22 05:09 LDL Cholesterol, Calc 65 mg/dL (50-129) 12/19/22 05:09 Total VLDL Cholesterol 29 mg/dL (0-30) 12/19/22 05:09 HDL Cholesterol 19 mg/dL (60-100) L 12/19/22 05:09 Cholesterol/HDL Ratio 5.95 mg/dL (0.0-4.40) H 12/19/22 05:09 Lipase 9 U/L (13-60) L 12/14/22 16:33 Vitamin B12 318 pg/mL (232-1245) 12/18/22 04:32 Folate 13.7 ng/mL (4.8-37.3) 12/18/22 04:32 Procalcitonin 1.79 ng/mL (0-0.5) H 12/18/22 04:32 TSH 3.02 uIU/mL (0.27-4.20) 12/18/22 04:32 Urine Color Yellow (Yellow) 12/17/22 00:10 Urine Appearance Sl hazy (CLEAR) A 12/17/22 00:10 Urine pH 5 (5-7) 12/17/22 00:10 Ur Specific [place] 1.020 (1.005-1.030) 12/17/22 00:10 Urine Protein 1+ (Negative) H 12/17/22 00:10 Urine Glucose (UA) Norm (Normal) 12/17/22 00:10 Urine Ketones Negative (Negative) 12/17/22 00:10 Urine Blood 3+ (Negative) H 12/17/22 00:10 Urine Nitrate Negative (Negative) 12/17/22 00:10 Urine Bilirubin Neg (Negative) 12/17/22 00:10 Urine Urobilinogen Norm mg/dL (Negative) 12/17/22 00:10 Ur Leukocyte Esterase Trace (Negative) H 12/17/22 00:10 Urine RBC 0-4 /hpf (0-2) H 12/17/22 00:10 Urine WBC 10-15 /hpf (0-5) H 12/17/22 00:10 Ur Squamous Epith Cells 10-15 /hpf (0-5) H 12/17/22 00:10 Ur Transition Epith Cell 5-10 /hpf 12/14/22 23:23 Amorphous Sediment 2+ /hpf 12/17/22 00:10 Urine Bacteria Trace /hpf (NONE) 12/17/22 00:10 Pleural Color Yellow (Pale Yellow) H 12/17/22 15:10 Pleural Appearance Cloudy (CLEAR) 12/17/22 15:10 Pleural pH 8.00 (6.5-7.5) H 12/17/22 15:10 Pleural WBC 2088.000 /uL (0-1000) H 12/17/22 15:10 Pleural RBC 2.000 10^3/uL 12/17/22 15:10 Pleural Other Cells Not Reportable 12/17/22 15:10 Pleural Polynuclear % 73 % 12/17/22 15:10 Pleural Mononuclear % 27 % 12/17/22 15:10 Pleural Total Protein 3.5 g/dL 12/17/22 15:10 Pleural Albumin 2.2 g/dL 12/17/22 15:10 Pleural LDH 2137 U/L 12/17/22 15:10 Pleural Glucose 37.0 mg/dL 12/17/22 15:10 Vancomycin Trough 5.0 ug/mL (10-15) L 12/17/22 19:11 Influenza Type A Ag negative (Negative) 12/14/22 16:33 Influenza Type B Ag negative (Negative) 12/14/22 16:33 SARS-CoV-2 Ag (Rapid) negative (Negative) 12/14/22 16:33 Path Cons w/Slide Yes 12/17/22 15:10 Micro: Microbiology 12/17/22 15:10 Gram Stain - Final Ankle - Thoracentesis Body Fluid Culture - Preliminary 12/17/22 18:09 Blood Culture - Preliminary Blood NEGATIVE TO DATE 12/17/22 18:04 Blood Culture - Preliminary Blood NEGATIVE TO DATE 12/14/22 17:45 Blood Culture - Final Blood Streptococcus pneumoniae 12/14/22 17:38 Blood Culture - Final Blood Streptococcus pneumoniae A&P Assessment and plan (1) Empyema of lung: CT angiogram showing moderate left pleural effusion with compressive atelectasis of left lung base On 12/18/2022 she underwent diagnostic/therapeutic thoracentesis with removal of 1000 cc clear yellow fluid. Pleural pH 8 (falsely elevated due to lidocaine), WBC 2088, neutrophilic predominant, total protein 3.5, LDH 2137, pleural glucose 37-all consistent with neutrophilic predominant exudative-possible empyema. Fluid cultures are pending Bedside ultrasound examination today morning showed a pocket of small to moderate pleural effusion with fibrinous tissue forming satellite small locules. I repeated thoracentesis today 12/19/2022 to drain the more fluid today to fac ilitate faster recovery, however was able to drain only 60 cc fluid-I sent pleural fluid for LDH, pleural fluid protein, glucose, cultures repeat cultures, There are fibrinous strands with small locules-possibly organized fluid. I recommended to monitor clinically for now and continue course of antibiotics. I will follow-up in pulmonary clinic 2 weeks after hospital discharge I have explained to patient and her sons-that if she does not respond to antibiotics-meaning worsening weakness, tiredness, shortness of breath, left- sided chest pain, worsening oxygen saturations, fevers, chills-she needs to come to emergency room and will need CT surgery intervention for VATS. They verbalized understanding and agreed with the plan (2) Bacteremia due to Streptococcus pneumoniae: Chest x-ray in the emergency room showed small to moderate left lower lobe effusion suspicious for left lower lobe pneumonia. Patient was admitted for management of left lower lobe pneumonia causing pleural effusion. During admission sepsis criteria initially with WBC greater than 12,000, procalcitonin 6.39,She was covered with vancomycin and Zosyn. Meanwhile-Blood cultures from admission showed a pansensitive strep pneumonia. MRSA nares were negative. Legionella antigen is negative. DC'd vancomycin and Zosyn and started on Rocephin 2 g once daily. Today Review of her labs showed no fever spikes in the last 4 days, procalcitonin down to 1.79, WBC count down from 27 K to 14 K. She is on 1 L supplemental oxygen saturating 95%-we can take her off supplemental oxygen and monitor saturations She reported that her energy and breathing is significantly improved since admission Monitor clinically (3) Pleural effusion on left: Management mentioned as above (4) Pulmonary embolism: There is CT evidence of partial filling defect in distal right subsegmental pulmonary artery. Patient was on Eliquis after being diagnosed with occlusive PE on right lung in August 2022. Her Eliquis was stopped in anticipation of thoracentesis We can restart her Eliquis at her DVT/PE treatment dose 5 Mg p.o. twice daily until 6 months which is March 2023 As it is unprovoked PE-she may need long-term anticoagulation with reduced dose 2.5 Mg p.o. twice daily after March 2023 (5) Emphysema lung: Patient is a chronic smoker-continues to smoke 0.5 pack/day There is CT evidence of centrilobular emphysema She may need PFTs as outpatient once current infection is treated Currently patient is on Xopenex every 6 hours nebulization as well as Pulmicort 0.5 mg inhalation twice daily She may benefit from Trelegy 1 puff daily as outpatient Counseled to quit smoking Plan I will follow-up as outpatient Consult Attestations Medical Necessity Statement: Deferred to hospitalist Time Spent in Patient Care: Greater than 35 minutes (>than 50% of time spent in counselling and/or direct pt care on unit) . Critical Care Time: The high probability of a clinically significant, sudden or life threatening deterioration of the patient's [pulmonary] system(s) required my full and direct attention, intervention and personal management. The critical care time is as shown. This time is in addition to time spent performing any reported procedures but includes the following: [x] Data and vital sign review and interpretation [x] Patient assessment, examination and intervention [x] Documentation [x] Medication orders and management Critical Care Time (min): 80 Coding Level of Care Code 82174 Diagnoses Empyema of lung J86.9 Bacteremia due to Streptococcus pneumoniae R78.81; B95.3 Pleural effusion on left J90 Pulmonary embolism I26.99 Emphysema lung J43.9 Time Spent (min) 85
--- NOTE | 2022-12-19 19:16 | P.PCN_ITS ---
Procedure/Consent Time out: Time Out Performed: Yes Consent: Consent for Procedure: Consent obtained from patient Procedure Narrative: Pulmonary & Critical Care Medicine Procedure - Ultrasound guided Thoracentesis Procedure: CPT code 61822 thoracentesis, needle or catheter, aspiration of the pleural space; with imaging guidance Indication: Moderate left pleural effusion. C56.2 Director Of Physical Therapy(s): Jose Bonilla MD [facility] Clinical history: 87-year-old female with left pleural effusion suspicious for empyema-still has moderate pleural effusion with loculations. Technique: The study was performed in an ACR accredited facility. Medication reconciliation form reviewed and any changes related this procedure resolved. Report: The procedure for thoracentesis was explained to the patient including the risks, benefits and possible complications. The patient was given the opportunity to ask questions, wished to proceed, and signed the written informed consent form. Using ultrasound guidance, a safe route of access was identified into the right pleural space. The site was then prepped and draped using maxim al sterile barrier technique. The 1% lidocaine was used for local anesthetic. With sonographic guidance, a 6 [place] thoracentesis catheter was placed with return of 5 cc straw-colored pleural fluid. The catheter was slipped into the pleural cavity and approximately 60 cc straw-colored pleural fluid was removed. The patient tolerated the procedure well without any immediate complications. Impression: 1. Unsuccessful ultrasound-guided left thoracentesis with removal of only 60 cc of straw-colored pleural fluid. Appears that there are loculations and organized fluid which is difficult to tap. ICD-10 code-J90 pleural effusion, not elsewhere classified Acute Procedures Epistaxis Control: Time out performed: Yes
--- NOTE | 2022-12-19 19:37 | PC.NURSE ---
Time out performed and consent obtained for left sided thoracentesis with Dr Bonilla at bedside. Patient put into correct position and procedure was performed only getting 60mL out of the left side due to multiple pockets noted. Specimen sent to lab and patient was helped back to a comfortable position. Table in reach. Call light near patient.
[2022-12-19 20:31] LABS: Total Protein Pleural Fluid 2.9 g/dL
[2022-12-19] MEDS: budesonide 0.5 mg/2 mL Neb INHALATION (20:33)
[2022-12-19] MEDS: levalbuterol 0.63 mg/3 mL Neb INHALATION (20:33)
[2022-12-19] MEDS: ipratropium 0.5 mg/2.5 mL Neb INHALATION (20:33)
[2022-12-19 20:49] LABS: Blood Urea Nitrogen 24 mg/dL (8-23); Calcium 8.1 mg/dL (8.5-10.5); Carbon Dioxide 28 mmol/L (22-29); Chloride 112 mmol/L (98-107); Glucose 130 mg/dL (65-115); Osmolality Calculated 314 mOsm/kg (285-295); Sodium 149 mmol/L (136-145)
[2022-12-20] VITALS (11 sets, daily range): BP systolic 123–149; BP diastolic 63–78; PULSE 75–114; RESP 15–20; TEMP 36.4–37.3; O2SAT 91–95
[2022-12-20] MEDS: dilTIAZem 30 mg Tablet PO ×4 (00:19→18:21)
[2022-12-20 05:13] LABS: Basophils % 0.1 %; Eosinophils # 0.2 10^3/uL (0.0-0.8); Eosinophils % 1.2 %; Hematocrit 35.4 % (37.0-47.0); Hemoglobin 11.3 g/dL (11.5-15.3); Lymphocytes # 0.8 10^3/uL (0.8-4.8); Mean Corpuscular HGB Conc 31.9 g/dL (30.0-36.0); Mean Corpuscular Volume 93.9 fl (81-99); Mean Platelet Volume 10.6 fL (7.4-10.4); Monocytes # 0.9 10^3/uL (0.2-0.9); Monocytes % 6.9 %; Neutrophils # 11.26 10^3/uL (1.8-7.7); Neutrophils % 83.3 %; Nucleated Red Blood Cells % 0 %; Platelet Count 330 10^3/cmm (130-400); Red Blood Count 3.77 10^6/uL (4.1-5.3); Red Cell Distribution Width 14.7 % (12.1-15.1); White Blood Count 13.5 10^3/uL (4.0-10.0)
[2022-12-20 05:29] LABS: Alanine Aminotransferase 7 U/L (0-33); Albumin Level 2.5 g/dL (3.5-5.2); Alkaline Phosphatase 60 U/L (35-105); Anion Gap 10.7 (5-19); Aspartate Amino Transferase 12 U/L (0-32); Blood Urea Nitrogen 19 mg/dL (8-23); Calcium 8.2 mg/dL (8.5-10.5); Carbon Dioxide 29 mmol/L (22-29); Chloride 113 mmol/L (98-107); Globulin 2.7 g/dL (1.3-4.6); Glucose 91 mg/dL (65-115); Osmolality Calculated 310 mOsm/kg (285-295); Potassium 3.7 mmol/L (3.5-5.1); Sodium 149 mmol/L (136-145); Total Bilirubin 0.4 mg/dL (0.15-1.2); Total Protein 5.2 g/dL (6.6-8.7)
--- NOTE | 2022-12-20 08:47 | XR_ITS ---
WS: [id number] EXAMINATION: XR chest 1V portable [id number] REASON FOR EXAM: Post PICC insertion COMPARISON: Previous study ORDER DATE: 12/20/2022 2:22 PM TECHNIQUE: A single, portable frontal chest x-ray was obtained. X-RAY FINDINGS: Lungs: Previous described 8 mm nodular density thought to be located in the peripheral right upper lo be is demonstrated to represent an artifact likely on the skin since it now superimposes the medial r ight scapula. Stable consolidation in the left lung base. Changes of emphysema. There is increased pulmonary vascular ian estion compared with previous. Pleural spaces: Stable moderate left pleural effusion. No pneumothorax. Heart/Mediastinum: Unremarkable. No cardiomegaly. Right-sided PICC line is terminating in the proximal SVC near the level of the tracheal bifurcation i n satisfactory position. XR/XR chest 1V portable [id number] IMPRESSION: 1. Stable left base consolidation and pleural effusion. 2. New 8 mm nodular density thought to be located in the right upper lobe is de monstrated and represent an artifact 3. Increased pulmonary vascular congestion 4. Satisfactory PICC line position.
[2022-12-20] MEDS: apixaban 5 mg Tablet PO ×2 (08:51→18:21)
[2022-12-20] MEDS: levothyroxine 75 mcg Tablet PO (11:55)
--- NOTE | 2022-12-20 14:30 | PC.NURSE ---
Single lumen Power PICC placed to right basilic vein without difficulty. Mid-arm circumference measured 10 cm from right AC and noted at 20 cm. Trimmed length of PICC 34 cm with 0 cm external length noted. Chest xray shows tip in SVC in satisfactory position and ready to use. Dressing for PICC due to be changed tomorrow, 12/21/22. Report given to bedside nurse.
--- NOTE | 2022-12-20 16:37 | P.PN_ITS ---
Subjective Subjective: No acute events overnight. Seen with family at bedside. Patient denies any new complaints. Remains on room air. Has remained hemodynamically stable and afebrile. Underwent further thoracentesis with pulmonology yesterday and 60 cc of fluid was aspirated. Patient tolerated the procedure well. Patient tolerated ceftriaxone well yesterday without any episodes of itching or difficulty in breathing or swelling of in the mouth. Patient was counseled again and she is agreeable to continue with ceftriaxone. Vitals/I&O/Wt Last Vital Signs Temp 99.1 F 12/20/22 16:00 Pulse 87 12/20/22 16:00 Resp 15 12/20/22 16:00 BP 136/69 12/20/22 16:00 Pulse Ox 91 12/20/22 16:00 O2 Del Method 12/20/22 16:00 O2 Flow Rate 2 12/20/22 04:00 12/20/22 12/20/22 12/20/22 06:59 14:59 22:59 Intake Total 1000 / 1480 Balance 1000 / 1020 Physical Exam Const: COMMON NORMALS: patient oriented x3 HENMT: COMMON NORMALS: normocephalic and atraumatic HEAD & SCALP: normoceph alic and atraumatic Resp: COMMON NORMALS: clear to auscultation bilaterally EFFORT & INSPECTION: Yes symmetric chest movement AUSCULTATION: clear to auscultation bilaterally OTHER: Air entry in left lung improved but diminished in bases Cardio: COMMON NORMALS: regular rate, regular rhythm, S1 normal heart sound present, S2 normal heart sound present, No gallops present (Cardio), No murmurs present (Cardio), No rub (Cardio) and Peripheral pulses 2+ throughout RATE: regular rate RHYTHM: regular rhythm HEART SOUNDS: S1 normal heart sound present and S2 normal heart sound present PERIPHERAL PULSES: Peripheral pulses 2+ throughout GI: COMMON NORMALS: Normal to inspection, nondistended, normoactive bowel sounds present, Soft to palpation, non-tender, No hepatosplenomegaly present and no masses AUSCULTATION: Yes normoactive bowel sounds PALPATION: Yes Soft to palpation and Yes No hepatosplenomegaly present RECTAL EXAM: deferred : COMMON NORMALS: Yes no CVA tenderness BLADDER/KIDNEY EXAM: Yes no CVA tenderness Back/Pelvis: COMMON NORMALS: no CVA tenderness Extremity: COMMON NORMALS: no clubbing, cyanosis or edema and no pedal edema Neuro: COMMON NORMALS: patient oriented x3 Data 12/20/22 04:53 12/20/22 04:53 Micro: Microbiology 12/17/22 15:10 Gram Stain - Final Ankle - Thoracentesis Body Fluid Culture - Preliminary A&P Assessment and plan (1) Left lower lobe pneumonia: Qualifiers: Pneumonia type: due to unspecified organism Qualified Code(s): J18.9 - Pneumonia, unspecified organism (2) Bacteremia due to Streptococcus pneumoniae: (3) Empyema of lung: (4) Pleural effusion on left: (5) Hypernatremia: (6) Leukocytosis: Qualifiers: Leukocytosis type: unspecified Qualified Code(s): D72.829 - Elevated white blood cell count, unspecified (7) Pulmonary embolism: (8) Hypothyroidism: (9) Hypertension: (10) Constipation: Qualifiers: Constipation type: unspecified constipation type Qualified Code(s): K59.00 - Constipation, unspecified Plan 87 year old female with past medical history of hypertension hypothyroidism, unprovoked pulmonary embolism on long-term Eliquis, recurrent UTI, came in today with chief complaint of lt? upper abdominal pain, chronic cough, likely has worsened in the last few days, with shortness of breath, fever as well as, 1 episode of choking episode by eating at home. Assessment: Sepsis secondary to pneumonia present on admission: Streptococcus bacteremia: Blood culture from admission positive for Streptococcus. Repeat blood culture sent on so far negative. MRSA swab negative. Pleural fluid consistent with possible empyema. Elevated pleural fluid LDH and white count with pH of 8. Appreciate pulmonary recommendations. Plan for repeat thoracentesis versus chest tube placement given improvement in leukocytosis over last 24-hour after thoracentesis and as per ultrasound of the chest examination. As per culture sensitivities switch patient to IV ceftriaxone. Possible history of allergies with cephalosporin which patient does not remember. Discussed in detail with patient and patient's family at bedside. They are agreeable for trial of ceftriaxone. Plan for IV antibiotic as an outpatient for overall 4 weeks and outpatient pulmonology follow-up. PICC line placement. Oxygen supplementation keeping saturation over 90%. Switch DuoNebs to ipratropium, Xopenex every 6 hourly. Add Pulmicort twice daily. A-fib with RVR: Newly diagnosed Echocardiogram from August 2022: Which has shown LV systolic function normal with EF of 55 to 60%, mild MR mild TR mild pulmonary hypertension. Continue with Cardizem 30 mg every 6 hourly. We will continue to monitor blood pressures and will consolidate on discharge. Continue with home dose of Eliquis for anticoagulation. Currently on with hold for thoracentesis. Hypernatremia: Most likely in setting of poor oral intake. Continue with D5W with 20 mg of potassium at 75 cc/h. Repeat BMP in AM. History of pulmonary embolism: On Eliquis Currently on hold for thoracentesis in the morning History of hypothyroidism: Continue levothyroxine History of hypertension: Goal blood pressure less than 140/90 mmHg. Patient takes amlodipine 5 mg and losartan 100 mg at home. Currently medications on hold. Continue with Cardizem as above. Blood pressure well controlled. We will continue to monitor. Constipation: Continue MiraLAX, milk of magnesia. As well as lactulose as needed Plan for the day: PICC line placement. Continue with IV ceftriaxone as patient is tolerating well. Follow-up fluid studies and fluid culture. As the repeat fluid studies sent yesterday shows slightly elevated LDH and lower glucose then fluid studies from 2 days ago we will check procalcitonin. Continue with oral Cardizem. Continue to hold off on amlodipine and losartan. Monitor blood pressures. Patient advised to increase oral intake of fluids given ongoing hyponatremia. Patient states he usually drinks less fluid as she is worried she will constantly be going to the bathroom. Discharge plan: Plan to discharge within next 24 hours with IV antibiotics with ceftriaxone for next 4 weeks with a PICC line if patient remains hemodynamically stable and afebrile with follow-up with pulmonology in 2 weeks. Full code. Currently NPO. Will restart on cardiac diet. Eliquis will suffice as DVT prophylaxis. Famotidine for PUD prophylaxis. Attestations Medical Necessity Statement*: Requires further hospitalization for management of empyema, Streptococcus pneumonia bacteremia while fluid cultures are followed, PICC line is placed and outpatient antibiotics are set up Diagnoses Left lower lobe pneumonia J18.9 Pneumonia type: due to unspecified organism Bacteremia due to Streptococcus pneumoniae R78.81; B95.3 Empyema of lung J86.9 Pleural effusion on left J90 Hypernatremia E87.0 Leukocytosis D72.829 Leukocytosis type: unspecified Pulmonary embolism I26.99 Hypothyroidism E03.9 Hypertension I10 Constipation K59.00 Constipation type: unspecified constipation type
[2022-12-20 18:04] LABS: Procalcitonin 0.44 ng/mL (0-0.5)
[2022-12-20] MEDS: cefTRIAXone 2,000 MG in sodium chloride 0.9% (plus) 50 ML 100 MG IV (18:20)
[2022-12-20] MEDS: benzonatate 100 mg Capsule PO (21:24)
[2022-12-20] MEDS: polyethylene glycol 3350 Pkt 17 gm PO (21:24)
[2022-12-21] MEDS: dilTIAZem 30 mg Tablet PO ×3 (00:35→11:00)
[2022-12-21 01:05] VITALS: PULSE 77; RESP 16; O2SAT 96
[2022-12-21 03:47] VITALS: PULSE 90
[2022-12-21 03:55] VITALS: BP 134/75; PULSE 90; RESP 18; TEMP 36.8; O2SAT 93
[2022-12-21 06:08] LABS: Basophils % 0.3 %; Eosinophils # 0.1 10^3/uL (0.0-0.8); Eosinophils % 0.8 %; Hematocrit 36.8 % (37.0-47.0); Hemoglobin 11.2 g/dL (11.5-15.3); Lymphocytes # 0.8 10^3/uL (0.8-4.8); Lymphocytes % 5.4 %; Mean Corpuscular HGB Conc 30.4 g/dL (30.0-36.0); Mean Corpuscular Hemoglobin 28.5 pg (28.0-34.0); Mean Corpuscular Volume 93.6 fl (81-99); Mean Platelet Volume 10.5 fL (7.4-10.4); Monocytes # 0.9 10^3/uL (0.2-0.9); Monocytes % 6.7 %; Neutrophils # 11.52 10^3/uL (1.8-7.7); Neutrophils % 83.3 %; Nucleated Red Blood Cells % 0 %; Platelet Count 361 10^3/cmm (130-400); Red Blood Count 3.93 10^6/uL (4.1-5.3); Red Cell Distribution Width 14.6 % (12.1-15.1); White Blood Count 13.8 10^3/uL (4.0-10.0)
[2022-12-21 06:35] LABS: Alanine Aminotransferase 14 U/L (0-33); Albumin Level 2.6 g/dL (3.5-5.2); Alkaline Phosphatase 64 U/L (35-105); Anion Gap 11.5 (5-19); Aspartate Amino Transferase 20 U/L (0-32); Blood Urea Nitrogen 17 mg/dL (8-23); Calcium 8.3 mg/dL (8.5-10.5); Carbon Dioxide 30 mmol/L (22-29); Chloride 112 mmol/L (98-107); Globulin 2.8 g/dL (1.3-4.6); Glucose 88 mg/dL (65-115); Osmolality Calculated 311 mOsm/kg (285-295); Potassium 3.5 mmol/L (3.5-5.1); Sodium 150 mmol/L (136-145); Total Bilirubin 0.4 mg/dL (0.15-1.2); Total Protein 5.4 g/dL (6.6-8.7)
[2022-12-21 07:36] VITALS: PULSE 87; RESP 16; O2SAT 96
[2022-12-21 08:00] VITALS: BP 127/71; PULSE 88; RESP 15; TEMP 36.8; O2SAT 95
[2022-12-21] MEDS: apixaban 5 mg Tablet PO (08:11)
--- NOTE | 2022-12-21 09:46 | PM.DCS ---
Discharge Providers Date of Admission: 12/14/22 18:37 Date of Discharge: December 21, 2022 Attending Provider at Admission: Tejas Chandler MD Attending Provider at Discharge: Alfonso Menezes MD Consults: Pulmonary: Dr. Bonilla Primary Care Provider: Chioma Germain Diagnoses at Discharge Discharge Diagnosis (1) Left lower lobe pneumonia: Status: Acute Qualifiers: Pneumonia type: due to unspecified organism Qualified Code(s): J18.9 - Pneumonia, unspecified organism (2) Bacteremia due to Streptococcus pneumoniae: Status: Acute (3) Empyema of lung: Status: Acute (4) Pleural effusion on left: Status: Acute (5) Hypernatremia: Status: Acute (6) Leukocytosis: Status: Acute Qualifiers: Leukocytosis type: unspecified Qualified Code(s): D72.829 - Elevated white blood cell count, unspecified (7) Pulmonary embolism: Status: Chronic (8) Hypothyroidism: Status: Acute (9) Hypertension: Status: Acute (10) Constipation: Status: Acute Qualifiers: Constipation type: unspecified constipation type Qualified Code(s): K59.00 - Constipation, unspecified Reason for Visit Reason for Visit: abdpain/sob/choked last night Brief History: Abida So is a 87 year old female with past medical history of hypertension hypothyroidism, unprovoked pulmonary embolism on long-term Eliquis, recurrent UTI, came in today with chief complaint of lt? upper abdominal pain, She also had a choking event yesterday? while eating followed by coughing fits, she is also experienced fever of 102 at home which did not responded to Tylenol,she has chronic cough due to bronchitis. X-ray chest has shown: Small to moderate left pleural effusion left lower lobe pneumonia X-ray abdomen: Constipation without evident obstruction Pertinent labs: WBC 27.7 , H&H: 13/39 , PLT : 178 , serum sodium 141 serum potassium 3.9, BUN 21, serum creatinine 0.9 Total bilirubin 1.5, lactic acid 1.2 Patient was given clindamycin 600 mg one-time dose in the ER Hospital Course Hospital Course Patient was admitted to the hospital further evaluation and management of sepsis with concerns for left lower lobe pneumonia. She was started on broad-spectrum antibiotics. Blood cultures from admission came back positive for Streptococcus pneumonia. Patient remained hemodynamically stable and became afebrile within 24 hours but continued to have persistent leukocytosis. On admission chest imaging was concerning for left-sided pleural effusion. Given persistent leukocytosis and positive blood cultures there was concern for empyema for which she underwent thoracentesis. Fluid cultures came back concerning for empyema after which pulmonology was consulted and her leukocytosis started resolving. Chest tube was deferred as per pulmonology recommendation given clinical improvement in patient's condition with advice for long course of IV antibiotics and close follow-up as an outpatient. PICC line has been placed and patient will be discharged on IV ceftriaxone as per culture sensitivities for overall 4 weeks with follow-up at pulmonology clinic in 2 weeks. Patient did have hypernatremia during hospitalization which remained persistent but patient remained asymptomatic. Patient has been counseled in detail to increase her oral intake she has been gradually doing by herself. She has been discharged in hemodynamically stable condition with advice to follow-up with pulmonology clinic in 2 weeks, IV antibiotics for 4 weeks till January 14 and weekly CBC and CMP which will be followed by primary care provider as an outpatient. Physical Exam Const: COMMON NORMALS: patient oriented x3 HENMT: COMMON NORMALS: normocephalic and atraumatic HEAD & SCALP: normocephalic and atraumatic Resp: COMMON NORMALS: clear to auscultation bilaterally EFFORT & INSPECTION: Yes symmetric chest movement AUSCULTATION: clear to auscultation bilaterally OTHER: Air entry in left lung improved but diminished in bases Cardio: COMMON NORMALS: regular rate, regular rhythm, S1 normal heart sound present, S2 normal heart sound present, No gallops present (Cardio), No murmurs present (Cardio), No rub (Cardio) and Peripheral pulses 2+ throughout RATE: regular rate RHYTHM: regular rhythm HEART SOUNDS: S1 normal heart sound present and S2 normal heart sound present PERIPHERAL PULSES: Peripheral pulses 2+ throughout GI: COMMON NORMALS: Normal to inspection, nondistended, normoactive bowel sounds present, Soft to palpation, non-tender, No hepatosplenomegaly present and no masses AUSCULTATION: Yes normoactive bowel sounds PALPATION: Yes Soft to palpation and Yes No hepatosplenomegaly present RECTAL EXAM: deferred : COMMON NORMALS: Yes no CVA tenderness BLADDER/KIDNEY EXAM: Yes no CVA tenderness Back/Pelvis: COMMON NORMALS: no CVA tenderness Extremity: COMMON NORMALS: no clubbing, cyanosis or edema and no pedal edema Neuro: COMMON NORMALS: patient oriented x3 Discharge Data Studies Completed and Pending Completed Studies During Hospitalization Category Date Time Status CTA chest abdomen pelvis [CT ang ches abdpel 76343/ Cat Scan 12/15/22 10:10 Completed 83665] Routine CXRP [XR chest 1V portable [id number]] Routine Exams 12/20/22 08:47 Completed XR abdomen 1V* [id number] Stat Exams 12/14/22 16:22 Completed XR chest 1V portable [id number] Routine Exams 12/19/22 18:32 Completed XR chest 1V portable [id number] Stat Exams 12/14/22 16:17 Completed XR chest 1V portable [id number] Stat Exams 12/18/22 15:14 Completed US thoracentesis [id number] Routine Ultrasound 12/18/22 06:00 Completed Pending at discharge Category Date Time Status Blood Culture Routine Lab 12/17/22 18:04 Results Body Fluid Culture & GS Routine Lab 12/17/22 15:10 Results Body Fluid Culture & GS Routine Lab 12/19/22 18:30 Results Mycobacteria, Culture w/Fluor Routine Lab 12/19/22 18:30 Received Sputum Culture and Gram Stain Routine Lab 12/20/22 10:25 Results Radiology Impressions Abdomen X-Ray 12/14/22 16:22 IMPRESSION: 1. Constipation without bowel dilation to indicate obstruction. 2. Degenerative changes throughout the spine. 3. Scattered vascular calcifications. Chest/Abdomen/Pelvis CTA 12/15/22 10:10 IMPRESSION: 1. Extensive atherosclerotic plaque throughout the thoracic and abdominal aortas. No dissection or significant aneurysm. Marked aortic ectasia and heavy atherosclerotic plaque. 2. Atherosclerotic plaque continues into the proximal great vessels and also into the mesenteric and renal arteries. 3. Moderate LEFT pleural effusion with compressive atelectasis at the LEFT lung base. 4. Centrilobular emphysema with scattered opacifications. Probably on the basis of pneumonitis. No dense consolidation. 5. Marked constipation. 6. Single partial filling defect in the distal RIGHT subsegmental pulmonary artery. Age-indeterminate pulmonary emboli. No large central pulmonary emboli. Thoracentesis Ultrasound 12/18/22 06:00 IMPRESSION:. Uncomplicated ultrasound-guided thoracentesis with removal of 1000 cc. Chest X-Ray 12/20/22 08:47 IMPRESSION: 1. Stable left base consolidation and pleural effusion. 2. New 8 mm nodular density thought to be located in the right upper lobe is demonstrated and represent an artifact 3. Increased pulmonary vascular congestion 4. Satisfactory PICC line position. Microbiology 12/20/22 10:25 Sputum - Expectorated Sputum Gram Stain - Final 12/19/22 18:30 Pleural Fluid Gram Stain - Final 12/17/22 15:10 Ankle - Thoracentesis Gram Stain - Final 12/17/22 15:10 Ankle - Thoracentesis Body Fluid Culture - Preliminary 12/17/22 18:09 Blood Blood Culture - Preliminary NEGATIVE TO DATE 12/17/22 18:04 Blood Blood Culture - Preliminary NEGATIVE TO DATE 12/14/22 17:45 Blood Blood Culture - Final Streptococcus pneumoniae 12/14/22 17:38 Blood Blood Culture - Final Streptococcus pneumoniae 12/18/22 00:10 Unknown Source Legionella Urinary Antigen - Final 12/18/22 00:10 Urine Kidney Bacterial Antigens - Final 12/14/22 23:23 Urine,Voided Legionella Urinary Antigen - Final 12/14/22 23:23 Urine,Voided Urine Culture - Final 12/14/22 23:23 Urine,Voided Bacterial Antigens - Final 12/14/22 22:00 Nose MRSA Culture - Final Laboratory Results WBC 13.8 10^3/uL (4.0-10.0) H 12/21/22 05:06 RBC 3.93 10^6/uL (4.1-5.3) L 12/21/22 05:06 Hgb 11.2 g/dL (11.5-15.3) L 12/21/22 05:06 Hct 36.8 % (37.0-47.0) L 12/21/22 05:06 MCV 93.6 fl (81-99) 12/21/22 05:06 MCH 28.5 pg (28.0-34.0) 12/21/22 05:06 MCHC 30.4 g/dL (30.0-36.0) 12/21/22 05:06 RDW 14.6 % (12.1-15.1) 12/21/22 05:06 Plt Count 361 10^3/cmm (130-400) 12/21/22 05:06 MPV 10.5 fL (7.4-10.4) H 12/21/22 05:06 Neut % (Auto) 83.3 % 12/21/22 05:06 Lymph % (Auto) 5.4 % 12/21/22 05:06 [place] % (Auto) 6.7 % 12/21/22 05:06 Eos % (Auto) 0.8 % 12/21/22 05:06 Baso % (Auto) 0.3 % 12/21/22 05:06 Neut # (Auto) 11.52 10^3/uL (1.8-7.7) H 12/21/22 05:06 Lymph # (Auto) 0.8 10^3/uL (0.8-4.8) 12/21/22 05:06 [place] # (Auto) 0.9 10^3/uL (0.2-0.9) 12/21/22 05:06 Eos # (Auto) 0.1 10^3/uL (0.0-0.8) 12/21/22 05:06 Baso # (Auto) 0.0 10^3/uL (0.0-0.1) 12/21/22 05:06 Nucleated RBC % (auto) 0 % 12/21/22 05:06 Total Counted Not Reportable 12/17/22 15:10 Atypical Lymphs % 3.0 % (0-5) 12/15/22 04:38 Absolute Neutrophils 18.3 10^3/cmm (1.4-6.5) H 12/15/22 04:38 Segmented Neutrophils 66 % 12/15/22 04:38 Abs Segm Neuts (Man) 18.3 10/cmm (1.6-7.1) H 12/15/22 04:38 Band Neutrophils 0.0 % 12/15/22 04:38 Abs Band Neuts (Man) 0.0 10^3/cmm (0.0-1.2) 12/15/22 04:38 Absolute Lymphocytes 9.1 10^3/cmm (1.2-3.4) H 12/15/22 04:38 Lymphocytes (Manual) 30 % 12/15/22 04:38 Monocytes (Manual) 1.0 % 12/15/22 04:38 Absolute Monocytes 0.3 10^3/cmm (0.1-0.6) 12/15/22 04:38 Eosinophils (Manual) 0 % 12/15/22 04:38 Absolute Eosinophils 0.0 10^3/cmm (0.0-0.7) 12/15/22 04:38 Basophils (Manual) 0.0 % 12/15/22 04:38 Absolute Basophils 0.0 10^3/cmm (0.0-0.2) 12/15/22 04:38 Nucleated RBCs # 0.0 /100WBC 12/21/22 05:06 Platelet Estimate Normal (Normal) 12/15/22 04:38 PT 15.60 SECONDS (12.1-14.9) H 12/18/22 04:32 INR 1.20 (0.8-1.2) 12/18/22 04:32 Sodium 150 mmol/L (136-145) H 12/21/22 05:06 Potassium 3.5 mmol/L (3.5-5.1) 12/21/22 05:06 Chloride 112 mmol/L (98-107) H 12/21/22 05:06 Carbon Dioxide 30 mmol/L (22-29) H 12/21/22 05:06 Anion Gap 11.5 (5-19) 12/21/22 05:06 BUN 17 mg/dL (8-23) 12/21/22 05:06 Creatinine 0.5 mg/dL (0.5-0.9) 12/21/22 05:06 GFR Calculation Not Reportable 12/21/22 05:06 Glucose 88 mg/dL (65-115) 12/21/22 05:06 Estimat Average Glucose 94 12/19/22 05:09 Hemoglobin A1c 4.9 % (4.0-6.0) 12/19/22 05:09 Calculated Osmolality 311 mOsm/kg (285-295) H 12/21/22 05:06 Lactic Acid 1.2 mmol/L (0.5-2.2) 12/14/22 17:45 Calcium 8.3 mg/dL (8.5-10.5) L 12/21/22 05:06 Magnesium 2.0 mg/dL (1.7-2.3) 12/15/22 04:38 Iron 29 ug/dL (37-145) L 12/18/22 04:32 TIBC 149 mcg/dl 12/18/22 04:32 % Saturation 19.4 % (20-50) L 12/18/22 04:32 Unsat Iron Binding 120 ug/dL (112-347) 12/18/22 04:32 Total Bilirubin 0.4 mg/dL (0.15-1.2) 12/21/22 05:06 AST 20 U/L (0-32) 12/21/22 05:06 ALT 14 U/L (0-33) 12/21/22 05:06 Alkaline Phosphatase 64 U/L (35-105) 12/21/22 05:06 Lactate Dehydrogenase 276 U/L (135-214) H 12/18/22 04:32 Total Protein 5.4 g/dL (6.6-8.7) L 12/21/22 05:06 Albumin 2.6 g/dL (3.5-5.2) L 12/21/22 05:06 Globulin 2.8 g/dL (1.3-4.6) 12/21/22 05:06 Triglycerides 145 mg/dL (0-150) 12/19/22 05:09 Cholesterol 113 mg/dL (0-200) 12/19/22 05:09 LDL Cholesterol, Calc 65 mg/dL (50-129) 12/19/22 05:09 Total VLDL Cholesterol 29 mg/dL (0-30) 12/19/22 05:09 HDL Cholesterol 19 mg/dL (60-100) L 12/19/22 05:09 Cholesterol/HDL Ratio 5.95 mg/dL (0.0-4.40) H 12/19/22 05:09 Lipase 9 U/L (13-60) L 12/14/22 16:33 Vitamin B12 318 pg/mL (232-1245) 12/18/22 04:32 Folate 13.7 ng/mL (4.8-37.3) 12/18/22 04:32 Procalcitonin 0.44 ng/mL (0-0.5) 12/20/22 04:53 TSH 3.02 uIU/mL (0.27-4.20) 12/18/22 04:32 Urine Color Yellow (Yellow) 12/17/22 00:10 Urine Appearance Sl hazy (CLEAR) A 12/17/22 00:10 Urine pH 5 (5-7) 12/17/22 00:10 Ur Specific [place] 1.020 (1.005-1.030) 12/17/22 00:10 Urine Protein 1+ (Negative) H 12/17/22 00:10 Urine Glucose (UA) Norm (Normal) 12/17/22 00:10 Urine Ketones Negative (Negative) 12/17/22 00:10 Urine Blood 3+ (Negative) H 12/17/22 00:10 Urine Nitrate Negative (Negative) 12/17/22 00:10 Urine Bilirubin Neg (Negative) 12/17/22 00:10 Urine Urobilinogen Norm mg/dL (Negative) 12/17/22 00:10 Ur Leukocyte Esterase Trace (Negative) H 12/17/22 00:10 Urine RBC 0-4 /hpf (0-2) H 12/17/22 00:10 Urine WBC 10-15 /hpf (0-5) H 12/17/22 00:10 Ur Squamous Epith Cells 10-15 /hpf (0-5) H 12/17/22 00:10 Ur Transition Epith Cell 5-10 /hpf 12/14/22 23:23 Amorphous Sediment 2+ /hpf 12/17/22 00:10 Urine Bacteria Trace /hpf (NONE) 12/17/22 00:10 Pleural Color Yellow (Pale Yellow) H 12/17/22 15:10 Pleural Appearance Cloudy (CLEAR) 12/17/22 15:10 Pleural pH 8.00 (6.5-7.5) H 12/19/22 18:30 Pleural WBC 2088.000 /uL (0-1000) H 12/17/22 15:10 Pleural RBC 2.000 10^3/uL 12/17/22 15:10 Pleural Other Cells Not Reportable 12/17/22 15:10 Pleural Polynuclear % 73 % 12/17/22 15:10 Pleural Mononuclear % 27 % 12/17/22 15:10 Pleural Total Protein 2.9 g/dL 12/19/22 18:30 Pleural Albumin 2.2 g/dL 12/17/22 15:10 Pleural LDH > 4450 U/L 12/19/22 18:30 Pleural Glucose 17.0 mg/dL 12/19/22 18:30 Vancomycin Trough 5.0 ug/mL (10-15) L 12/17/22 19:11 Influenza Type A Ag negative (Negative) 12/14/22 16:33 Influenza Type B Ag negative (Negative) 12/14/22 16:33 SARS-CoV-2 Ag (Rapid) negative (Negative) 12/14/22 16:33 Path Cons w/Slide Yes 12/17/22 15:10 Vitals Last Vital Signs Temp 98.3 F 12/21/22 08:00 Pulse 88 12/21/22 08:00 Resp 15 12/21/22 08:00 BP 127/71 12/21/22 08:00 Pulse Ox 95 12/21/22 08:00 O2 Del Method 12/21/22 07:36 O2 Flow Rate 2 12/21/22 07:36 Discharge Plan Discharge Patient Disposition: Home Health Service Condition: Stable Prescriptions: New Trelegy Ellipta 100-62.5-25 mcg blister with device 1 inh inhalation DAILY Qty: 60 3RF benzonatate 100 mg Capsule 100 mg PO TID PRN (Reason: Cough) Qty: 14 0RF ceftriaxone in dextrose,iso-os 2 gram/50 mL piggyback 2 g IV DAILY Qty: 24 0RF Continued losartan 100 mg tablet 100 mg PO BEDTIME methenamine hippurate 1 gram tablet 1 g PO BID Qty: 180 3RF Rx Instructions: Take 1000 mg of vitamin C with each dose of methenamine polyethylene glycol 3350 [Miralax] 17 gram Powder In Packet 17 g PO BEDTIME Eliquis DVT-PE Treat 30D Start 5 mg (74 tabs) tablets,dose pack 5 mg PO BID levothyroxine 75 mcg tablet 75 mcg PO DAILY@13 ascorbic acid (vitamin C) [Vitamin C] 500 mg Tablet 1,000 mg PO BID Discontinued amlodipine 5 mg tablet 5 mg PO BID Discharge Orders: Discharge Order (Routine); Ordered 12/21/22 Ordered By: Alfonso Menezes Referrals: [facility] [Other] (You have been arranged with [facility]. They will be contacting you about setting up a time to do the admission, if you have any questions or concerns please contact them at [phone].) [facility] [Other] (You have been set up with [facility] for your IV antibiotics. They will be contacting you about delivery of your medications. If you have any questions or concerns please contact them at [phone].) DataJose rodriguez MD [Physician] - 12/28/22 11:15 am Chioma Germain [Primary Care Provider] - 12/28/22 2:20 pm Discharge Diet: Usual diet Discharge Activity: Resume usual activity and Increase activity as tolerated Patient Instructions: Benzonatate (By mouth) (Tessalon Perles, Zonatuss), Ceftriaxone (By injection) (Rocephin, Novaplus cefTRIAXone,..., Fluticasone/Umeclidinium/Vilanterol (By breathing) (Trelegy Ellipta), Emphysema (DC), Bacterial Pneumonia (DC), Opioid Safety Activity Restrictions/Additional Instructions: Weekly cbc and cmp while you are on the antibiotics. Continue with weekly PICC line dressings. PICC line to be removed after completion of IV antibiotic course. If you develop any high-grade fever going up to more than 101 Fahrenheit, confusion please report back to the ER. Discharge Attestations Time Spent in Discharge Care*: greater than 30 min Specific Discharge Activities: educating patient, educating and/or supporting family/caregiver, discussing with pcp/other providers, discussing with case packer/social workers/dc planners, documenting/other paperwork and evaluating patient/reviewing data Quality Metrics Clinical Quality Measures [ No reported AMI, CVA or VTE this stay] Coding Level of Care Code 56274 Total time (in minutes) for Discharge: 50 Diagnoses Left lower lobe pneumonia J18.9 Pneumonia type: due to unspecified organism Bacteremia due to Streptococcus pneumoniae R78.81; B95.3 Empyema of lung J86.9 Pleural effusion on left J90 Hypernatremia E87.0 Leukocytosis D72.829 Leukocytosis type: unspecified Pulmonary embolism I26.99 Hypothyroidism E03.9 Hypertension I10 Constipation K59.00 Constipation type: unspecified constipation type
[2022-12-21] MEDS: cefTRIAXone 2,000 MG in sodium chloride 0.9% (plus) 50 ML 100 MG IV (11:00)
[2022-12-21] MEDS: acetaminophen 325 mg Tablet 650 MG PO (11:00)
--- NOTE | 2022-12-21 11:28 | PC.SOCIAL ---
IMM update IMM updated with patient and daughter at bedside. Copy PG 2 provided. Verbalized an understanding. Initialled, dated, timed, and placed in chart.
--- NOTE | 2022-12-21 12:16 | PC.NURSE ---
patient and family verbalixed understanding of discharge instructions, home medications, and follow up appointments.
== END 2022-12-21 12:21 | disposition home health service (06) | DRG 871 ==
LOC: ER 19:27 → MEDSURG 19:51
PROVIDERS: Internal Medicine Pulmonary Disease; Admitting Provider Internal Medicine; Emergency Provider Emergency Medicine; PCP Registered Nurse; Visit Provider Student in an Organized Health Care Education/Training Program
DX: A40.3 Sepsis due to Streptococcus pneumoniae (principal); J15.20 Pneumonia due to staphylococcus, unspecified; J86.9 Pyothorax without fistula; E87.0 Hyperosmolality and hypernatremia; J91.8 Pleural effusion in other conditions classified elsewhere; K59.00 Constipation, unspecified; I48.91 Unspecified atrial fibrillation; E03.9 Hypothyroidism, unspecified; I10 Essential (primary) hypertension; J43.2 Centrilobular emphysema; F17.210 Nicotine dependence, cigarettes, uncomplicated; Z86.711 Personal history of pulmonary embolism; Z79.01 Long term (current) use of anticoagulants
CPT/HCPCS: 32555; 36415; 36569; 71045; 71275; 74018; 74174; 80048; 80053; 80061; 80202; 80503; 81001; 82042; 82607; 82746; 82945; 83036; 83540; 83550; 83605; 83615; 83690; 83735; 83986; 84145; 84157; 84443; 85007; 85025; 85610; 86403; 87015; 87040; 87070; 87075; 87077; 87086; 87116; 87186; 87205; 87206; 87426; 87449; 87641; 87801; 87804; 89050; 93005; 94640; 96365; 96367; 97110; 97116; 97161; 97530; 99285; J0696; J2543; J3370; J3490; J7042; J7050; J7614; J7626; J7644; Q9967

== ENCOUNTER 2022-12-27 14:08 | Outpatient (CLI) | payer MEDICARE, SELFPAY ==
[2022-12-27 14:49] LABS: Basophils # 0.1 10^3/uL (0.0-0.1); Basophils % 0.3 %; Eosinophils # 0.1 10^3/uL (0.0-0.8); Eosinophils % 0.3 %; Hematocrit 36.7 % (37.0-47.0); Hemoglobin 10.9 g/dL (11.5-15.3); Lymphocytes # 0.9 10^3/uL (0.8-4.8); Lymphocytes % 4.9 %; Mean Corpuscular HGB Conc 29.7 g/dL (30.0-36.0); Mean Corpuscular Hemoglobin 29.4 pg (28.0-34.0); Mean Corpuscular Volume 98.9 fl (81-99); Mean Platelet Volume 10.9 fL (7.4-10.4); Monocytes # 0.9 10^3/uL (0.2-0.9); Monocytes % 5.3 %; Neutrophils # 15.57 10^3/uL (1.8-7.7); Neutrophils % 88.5 %; Nucleated Red Blood Cells % 0 %; Platelet Count 502 10^3/cmm (130-400); Red Blood Count 3.71 10^6/uL (4.1-5.3); Red Cell Distribution Width 14.6 % (12.1-15.1); White Blood Count 17.6 10^3/uL (4.0-10.0)
[2022-12-27 15:17] LABS: Alanine Aminotransferase 13 U/L (0-33); Alkaline Phosphatase 82 U/L (35-105); Anion Gap 14.7 (5-19); Aspartate Amino Transferase 17 U/L (0-32); Blood Urea Nitrogen 26 mg/dL (8-23); Carbon Dioxide 31 mmol/L (22-29); Chloride 103 mmol/L (98-107); Globulin 2.3 g/dL (1.3-4.6); Glucose 107 mg/dL (65-115); Osmolality Calculated 305 mOsm/kg (285-295); Potassium 3.7 mmol/L (3.5-5.1); Sodium 145 mmol/L (136-145); Total Bilirubin 0.2 mg/dL (0.15-1.2); Total Protein 5.3 g/dL (6.6-8.7)
== END 2022-12-27 14:09 | disposition home or self-care (01) ==
LOC: LAB 14:22
PROVIDERS: PCP Registered Nurse; Visit Provider Registered Nurse
DX: Z01.89 Encounter for other specified special examinations (principal)
CPT/HCPCS: 80053; 85025

== ENCOUNTER → 2022-12-28 11:39 | Outpatient (BNVA) | payer MEDICARE, SELFPAY | PROVIDERS: PCP Registered Nurse; Visit Provider Internal Medicine Pulmonary Disease | DX: J90 Pleural effusion, not elsewhere classified (principal); J18.9 Pneumonia, unspecified organism; J43.9 Emphysema, unspecified; I26.99 Other pulmonary embolism without acute cor pulmonale; F17.210 Nicotine dependence, cigarettes, uncomplicated | CPT/HCPCS: 99204 ==

== ENCOUNTER → 2022-12-28 13:03 | Outpatient (BNVA) | payer MEDICARE, SELFPAY | PROVIDERS: PCP Registered Nurse; Visit Provider Internal Medicine Pulmonary Disease | DX: J18.9 Pneumonia, unspecified organism (principal); J43.9 Emphysema, unspecified; J90 Pleural effusion, not elsewhere classified | CPT/HCPCS: 71046; 99204 ==

== ENCOUNTER 2023-01-18 11:20 | Outpatient (RCR) | payer MEDICARE, SELFPAY ==
[2023-01-03 13:59] LABS: Basophils % 0.3 %; Eosinophils % 0.3 %; Hematocrit 33.7 % (37.0-47.0); Hemoglobin 10.8 g/dL (11.5-15.3); Lymphocytes % 7.3 %; Mean Corpuscular Hemoglobin 29.3 pg (28.0-34.0); Mean Corpuscular Volume 91.3 fl (81-99); Mean Platelet Volume 11.2 fL (7.4-10.4); Monocytes # 0.7 10^3/uL (0.2-0.9); Monocytes % 5.2 %; Neutrophils % 86.3 %; Nucleated Red Blood Cells % 0 %; Platelet Count 401 10^3/cmm (130-400); Red Blood Count 3.69 10^6/uL (4.1-5.3); Red Cell Distribution Width 14.7 % (12.1-15.1); White Blood Count 13.3 10^3/uL (4.0-10.0)
[2023-01-03 15:42] LABS: Alanine Aminotransferase 10 U/L (0-33); Albumin Level 2.9 g/dL (3.5-5.2); Alkaline Phosphatase 79 U/L (35-105); Anion Gap 14.2 (5-19); Aspartate Amino Transferase 15 U/L (0-32); Blood Urea Nitrogen 13 mg/dL (8-23); Calcium 8.2 mg/dL (8.5-10.5); Carbon Dioxide 31 mmol/L (22-29); Chloride 102 mmol/L (98-107); Globulin 2.6 g/dL (1.3-4.6); Glucose 125 mg/dL (65-115); Osmolality Calculated 298 mOsm/kg (285-295); Potassium 4.2 mmol/L (3.5-5.1); Sodium 143 mmol/L (136-145); Total Bilirubin 0.3 mg/dL (0.15-1.2); Total Protein 5.5 g/dL (6.6-8.7)
[2023-01-12 15:00] LABS: Basophils % 0.2 %; Eosinophils # 0.2 10^3/uL (0.0-0.8); Eosinophils % 1.5 %; Hematocrit 33.4 % (37.0-47.0); Hemoglobin 10.9 g/dL (11.5-15.3); Lymphocytes # 1.2 10^3/uL (0.8-4.8); Lymphocytes % 11.2 %; Mean Corpuscular HGB Conc 32.6 g/dL (30.0-36.0); Mean Corpuscular Hemoglobin 29.1 pg (28.0-34.0); Mean Corpuscular Volume 89.3 fl (81-99); Mean Platelet Volume 11.1 fL (7.4-10.4); Monocytes # 0.8 10^3/uL (0.2-0.9); Monocytes % 7.6 %; Neutrophils # 8.16 10^3/uL (1.8-7.7); Nucleated Red Blood Cells % 0 %; Platelet Count 243 10^3/cmm (130-400); Red Blood Count 3.74 10^6/uL (4.1-5.3); Red Cell Distribution Width 14.1 % (12.1-15.1); White Blood Count 10.3 10^3/uL (4.0-10.0)
[2023-01-12 15:27] LABS: Alanine Aminotransferase 8 U/L (0-33); Albumin Level 3.2 g/dL (3.5-5.2); Alkaline Phosphatase 83 U/L (35-105); Anion Gap 14.3 (5-19); Aspartate Amino Transferase 15 U/L (0-32); Blood Urea Nitrogen 16 mg/dL (8-23); Calcium 8.4 mg/dL (8.5-10.5); Carbon Dioxide 30 mmol/L (22-29); Chloride 99 mmol/L (98-107); Globulin 2.5 g/dL (1.3-4.6); Glucose 71 mg/dL (65-115); Osmolality Calculated 288 mOsm/kg (285-295); Potassium 4.3 mmol/L (3.5-5.1); Sodium 139 mmol/L (136-145); Total Bilirubin 0.2 mg/dL (0.15-1.2); Total Protein 5.7 g/dL (6.6-8.7)
[2023-01-18 12:24] LABS: Basophils % 0.3 %; Eosinophils # 0.1 10^3/uL (0.0-0.8); Hematocrit 34.7 % (37.0-47.0); Hemoglobin 11.1 g/dL (11.5-15.3); Lymphocytes # 0.9 10^3/uL (0.8-4.8); Lymphocytes % 9.8 %; Mean Corpuscular Hemoglobin 28.4 pg (28.0-34.0); Mean Corpuscular Volume 88.7 fl (81-99); Mean Platelet Volume 10.7 fL (7.4-10.4); Monocytes # 0.7 10^3/uL (0.2-0.9); Monocytes % 7.5 %; Neutrophils # 7.54 10^3/uL (1.8-7.7); Neutrophils % 80.9 %; Nucleated Red Blood Cells % 0 %; Platelet Count 266 10^3/cmm (130-400); Red Blood Count 3.91 10^6/uL (4.1-5.3); Red Cell Distribution Width 14.1 % (12.1-15.1); White Blood Count 9.3 10^3/uL (4.0-10.0)
[2023-01-18 12:44] LABS: Alanine Aminotransferase 7 U/L (0-33); Albumin Level 3.2 g/dL (3.5-5.2); Alkaline Phosphatase 70 U/L (35-105); Anion Gap 14.5 (5-19); Aspartate Amino Transferase 13 U/L (0-32); Blood Urea Nitrogen 11 mg/dL (8-23); Calcium 8.4 mg/dL (8.5-10.5); Carbon Dioxide 28 mmol/L (22-29); Chloride 100 mmol/L (98-107); Globulin 2.6 g/dL (1.3-4.6); Glucose 67 mg/dL (65-115); Osmolality Calculated 284 mOsm/kg (285-295); Potassium 4.5 mmol/L (3.5-5.1); Sodium 138 mmol/L (136-145); Total Bilirubin 0.3 mg/dL (0.15-1.2); Total Protein 5.8 g/dL (6.6-8.7)
== END 2023-01-28 23:59 | disposition home or self-care (01) ==
LOC: LAB 11:20
PROVIDERS: PCP Registered Nurse; Visit Provider Registered Nurse
DX: J86.9 Pyothorax without fistula (principal)
CPT/HCPCS: 80053; 85025

== ENCOUNTER → 2023-03-29 15:37 | Outpatient (BNVA) | payer MEDICARE, SELFPAY | PROVIDERS: PCP Registered Nurse; Visit Provider Internal Medicine Pulmonary Disease | DX: J90 Pleural effusion, not elsewhere classified (principal); I26.99 Other pulmonary embolism without acute cor pulmonale; Z09 Encounter for follow-up examination after completed treatment for conditions other than malignant neoplasm; J43.9 Emphysema, unspecified | CPT/HCPCS: 71046; 99214 ==

== ENCOUNTER 2024-07-25 02:21 | Emergency (ER) | payer MEDICARE, SELFPAY ==
--- NOTE | 2024-07-25 02:26 | CTR_ITS ---
PROCEDURE INFORMATION: Exam: CTA Chest With Contrast Exam date and time: 07/25/2024 3:07 AM Age: 88 years old Clinical indication: Other: Hemoptysis; Additional info: Hemoptysis, on eliquis for pe, copd TECHNIQUE: Imaging protocol: Computed tomographic angiography of the chest with contrast. Exam focused on the arteries. 3D rendering (Not supervised by radiologist): MIP and/or 3D reconstructed images were created by the technologist. Radiation optimization: All CT scans at this facility use at least one of these dose optimization techniques: automated exposure control; mA and/or kV adjustment per patient size (includes targeted exams where dose is matched to clinical indication); or iterative reconstruction. Contrast material: OMNI 350; Contrast volume: 60 ml; Contrast route: INTRAVENOUS (IV); COMPARISON: CT angio chest PE prot [id number] 09/20/2022 12:31 PM RADIATION DOSE METRICS: Total DLP (mGy-cm): 229.51 FINDINGS: Pulmonary arteries: Normal. No pulmonary emboli. Aorta: Unremarkable. No aortic aneurysm. No aortic dissection. 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 Centrilobular emphysema. Pulmonary hyperinflation. Calcified granuloma in the anterior left upper lobe is unchanged. Negative for hemorrhage. Negative for consolidation. Negative for mass. Mild left lower lobe volume loss redemonstrated. Mild severity diffuse bronchial wall thickening. Pleural spaces: Chronic trace left pleural effusion. Heart: Unremarkable. No cardiomegaly. No pericardial effusion. Lymph nodes: Unremarkable. No enlarged lymph nodes. Bones/joints: Unremarkable. No acute fracture. Soft tissues: Unremarkable. CT/CT angio chest PE protcl [id number] IMPRESSION: 1. Negative for pulmonary artery embolism. 2. No acute chest pathology is identified.
--- NOTE | 2024-07-25 02:27 | W.ED.GENADLT ---
HPI - General Adult General: Chief complaint: GI Bleed Stated complaint: Coughing Blood Time Seen by Provider: 07/25/24 02:26 History of Present Illness: Patient presents to the ER with a history of coughing up blood since yesterday. She says started earlier today she coughed up a lot of blood within stopped she went to bed and woke up coughing in melanite and coughed up more blood. Patient is on Eliquis for PE. Patient appears in no acute distress nontoxic. Patient's oxygen saturation on room air is 95+ percent. Related Data Home Medications Medication Instructions Recorded Confirmed losartan 100 mg tablet 100 mg PO BEDTIME 03/05/20 11/21/23 polyethylene glycol 3350 17 gram 17 g PO BEDTIME 03/31/20 11/21/23 oral powder packet (Miralax) ascorbic acid (vitamin C) 500 mg 1,000 mg PO BID 09/20/22 11/21/23 tablet (Vitamin C) levothyroxine 75 mcg tablet 75 mcg PO DAILY@13 09/20/22 11/21/23 apixaban 5 mg (74 tabs) tablets in 5 mg PO BID 12/14/22 11/21/23 a dose pack (Eliquis DVT-PE Treat 30D Start) Previous Rx's Medication Instructions Recorded methenamine hippurate 1 gram tablet 1 g PO BID #180 tabs 10/19/22 benzonatate 100 mg capsule 100 mg PO TID PRN Cough #14 caps 12/21/22 ceftriaxone 2 gram/50 mL in 2 g (50 mL) IV DAILY #24 ea 12/21/22 dextrose (iso-osm) intravenous piggyback tiotropium bromide 1.25 2 puff inhalation Q24H #4 grams 01/03/24 mcg/actuation mist for inhalation (Spiriva Respimat) Allergies Allergy/AdvReac Type Severity Reaction Status Date / Time Sulfa (Sulfonamide Allergy Severe swelling Verified 11/21/23 12:00 Antibiotics) of throat nitrofurantoin Allergy Unknown Verified 11/21/23 12:00 [From Macrobid] Review of Systems General: Reports: 10 or more systems reviewed and unremarkable except in HPI and below PFSH ED PFSH: Medical History Elevated bilirubin Pulmonary embolism Pulmonary embolism Hypothyroidism Hypertension Recurrent UTI Cystitis cystica Chronic UTI Surgical History H/O eye surgery right H/O vaginal surgery 08/04/2020- vaginal sling revision performed by Dr. Smalls at [facility] H/O: hysterectomy 1978 H/O bladder repair surgery Mesh erosion excision, anterior colporrhaphy augmented with allograft performed by Dr. Smalls at [facility] on 03/31/2020 Family History Sister Lung cancer Hypertension Stroke Thyroid disease Ovarian cancer, Onset Age: 64 Brother Hypertension Stroke Mother , at age 95 No problems noted. Father , at age 32 Drowning Denies family history of Colon cancer Diabetes Clotting disorder Hyperlipidemia Breast cancer Anesthesia complication Bleeding disorder Uterine cancer Social History Smoking and tobacco/nicotine status: current every day tobacco/nicotine user cigarettes Packs smoked per day: 0.5 Alcohol intake: never Substance/Drug Use: never Household members: spouse Marital status: Current occupational status: retired Physical Exam Const: COMMON NORMALS: no acute distress, average body habitus, patient oriented x3, no limitations, healthy appearing, alert and well nourished HENMT: COMMON NORMALS: normocephalic, atraumatic, hearing grossly normal bilaterally, external ears normal, Normal external nose present and moist oral mucous membranes HEAD & SCALP: normocephalic and atraumatic NOSE: Normal external nose present EXTERNAL EAR: Yes external ears normal Neck/C-Spine: COMMON NORMALS: full ROM, no lymphadenopathy, supple, no meningeal signs, no JVD and Thyroid normal THYROID: Thyroid normal Chest: COMMONS NORMALS: normal inspection of the chest and normal palpation of entire chest wall Resp: COMMON NORMALS: normal respiratory effort, No retractions, No use of accessory muscles and clear to auscultation bilaterally AUSCULTATION: clear to auscultation bilaterally Cardio: COMMON NORMALS: no JVD, regular rate, regular rhythm, S1 normal heart sound present, S2 normal heart sound present, No gallops present (Cardio), No clicks present (Cardio), No murmurs present (Cardio) and No rub (Cardio) RATE: regular rate RHYTHM: regular rhythm HEART SOUNDS: S1 normal heart sound present and S2 normal heart sound present GI: COMMON NORMALS: Normal to inspection, nondistended, normoactive bowel sounds present, Soft to palpation, non-tender, No hepatosplenomegaly present and no masses PALPATION: Yes Soft to palpation and Yes No hepatosplenomegaly present Neuro: COMMON NORMALS: patient oriented x3 SENSORIUM/ORIENTATION: Yes alert MENINGEAL SIGNS: Yes no meningeal signs Course Vital Signs: Vital signs: Vital Signs Pulse Rate 69 07/25/24 03:31 Respiratory Rate 20 H 07/25/24 02:28 Blood Pressure 173/90 07/25/24 03:31 Pulse Oximetry 97 07/25/24 03:31 Oxygen Delivery Me thod Room Air 07/25/24 03:31 MDM - General Adult Medical Decision Making Lab work was reviewed, CT of the chest was reviewed from all which was essentially negative. Patient's family was informed of these results. Patient be discharged home. Patient will be instructed to discontinue her Eliquis for the next 2 days and if the bleeding stops then restarted. Medical Records I reviewed the patient's medical records. Lab Data I reviewed the patient's lab results. 07/25/24 02:32 07/25/24 02:32 Radiology Impressions Chest CTA 07/25/24 02:26 IMPRESSION: 1. Negative for pulmonary artery embolism. 2. No acute chest pathology is identified. Laboratory Results WBC 7.43 10^3/uL (3.29-11.43) 07/25/24 02:32 RBC 4.45 10^6/uL (3.85-5.65) 07/25/24 02:32 Hgb 12.90 g/dL (11.27-16.99) 07/25/24 02:32 Hct 40.5 % (36-47) 07/25/24 02:32 MCV 91.0 fl (85-98) 07/25/24 02:32 MCH 29.0 pg (27-33) 07/25/24 02:32 MCHC 31.9 g/dL (30-55) 07/25/24 02:32 RDW 13.9 % (12.1-15.1) 07/25/24 02:32 Plt Count 201 10^3/cmm (157-399) 07/25/24 02:32 MPV 10.6 fL (7.4-10.4) H 07/25/24 02:32 Neut % (Auto) 59.2 % 07/25/24 02:32 Lymph % (Auto) 22.3 % 07/25/24 02:32 [place] % (Auto) 7.8 % 07/25/24 02:32 Eos % (Auto) 10.0 % 07/25/24 02:32 Baso % (Auto) 0.4 % 07/25/24 02:32 Neut # (Auto) 4.40 10^3/uL (1.8-7.7) 07/25/24 02:32 Lymph # (Auto) 1.7 10^3/uL (0.8-4.8) 07/25/24 02:32 [place] # (Auto) 0.6 10^3/uL (0.2-0.9) 07/25/24 02:32 Eos # (Auto) 0.7 10^3/uL (0.0-0.8) 07/25/24 02:32 Baso # (Auto) 0.0 10^3/uL (0.0-0.1) 07/25/24 02:32 Nucleated RBC % (auto) 0 % 07/25/24 02:32 Nucleated RBCs # 0.0 /100WBC 07/25/24 02:32 PT 15.10 SECONDS (12.1-14.9) H 07/25/24 02:32 INR 1.15 (0.8-1.2) 07/25/24 02:32 Sodium 141 mmol/L (136-145) 07/25/24 02:32 Potassium 4.2 mmol/L (3.5-5.1) 07/25/24 02:32 Chloride 103 mmol/L (98-107) 07/25/24 02:32 Carbon Dioxide 31 mmol/L (22-29) H 07/25/24 02:32 Anion Gap 11.2 (5-19) 07/25/24 02:32 BUN 23 mg/dL (8-23) 07/25/24 02:32 Creatinine 0.8 mg/dL (0.5-0.9) 07/25/24 02:32 GFR Calculation Not Reportable 07/25/24 02:32 Glucose 93 mg/dL (65-115) 07/25/24 02:32 Calculated Osmolality 295 mOsm/kg (285-295) 07/25/24 02:32 Calcium 9.0 mg/dL (8.5-10.5) 07/25/24 02:32 Total Bilirubin 0.6 mg/dL (0.15-1.2) 07/25/24 02:32 AST 22 U/L (0-32) 07/25/24 02:32 ALT 12 U/L (0-33) 07/25/24 02:32 Alkaline Phosphatase 67 U/L (35-105) 07/25/24 02:32 Total Protein 6.2 g/dL (6.6-8.7) L 07/25/24 02:32 Albumin 4.1 g/dL (3.5-5.2) 07/25/24 02:32 Globulin 2.1 g/dL (1.3-4.6) 07/25/24 02:32 Urine Color Yellow (Yellow) 07/25/24 03:25 Urine Appearance Clear (CLEAR) 07/25/24 03:25 Urine pH 7.5 (5-7) 07/25/24 03:25 Ur Specific [place] 1.008 (1.005-1.030) 07/25/24 03:25 Urine Protein Negative (Negative) 07/25/24 03:25 Urine Glucose (UA) Negative (Normal) 07/25/24 03:25 Urine Ketones Negative (Negative) 07/25/24 03:25 Urine Blood Trace (Negative) A 07/25/24 03:25 Urine Nitrate Negative (Negative) 07/25/24 03:25 Urine Bilirubin Negative (Negative) 07/25/24 03:25 Urine Urobilinogen 1.0 mg/dL (Negative) 07/25/24 03:25 Ur Leukocyte Esterase Negative (Negative) 07/25/24 03:25 Urine RBC 3-5 /hpf (0-2) 07/25/24 03:25 Urine WBC 0-5 /hpf (0-5) 07/25/24 03:25 Ur Squamous Epith Cells 0-5 /hpf (0-5) 07/25/24 03:25 Amorphous Sediment Not Reportable 07/25/24 03:25 Urine Bacteria None seen /hpf (NONE) 07/25/24 03:25 Hyaline Casts 0-4 /lpf H 07/25/24 03:25 All radiology interpretation(s) finalized by discharge Discharge Plan Discharge Patient Disposition: Home Clinical Impression: Hemoptysis Condition: Stable Prescriptions: No Action losartan 100 mg tablet 100 mg PO BEDTIME methenamine hippurate 1 gram tablet 1 g PO BID Qty: 180 3RF Rx Instructions: Take 1000 mg of vitamin C with each dose of methenamine Spiriva Respimat 1.25 mcg/actuation mist 2 puff inhalation Q24H Qty: 4 3RF polyethylene glycol 3350 [Miralax] 17 gram Powder In Packet 17 g PO BEDTIME Eliquis DVT-PE Treat 30D Start 5 mg (74 tabs) tablets,dose pack 5 mg PO BID benzonatate 100 mg Capsule 100 mg PO TID PRN (Reason: Cough) Qty: 14 0RF ceftriaxone in dextrose,iso-os 2 gram/50 mL piggyback 2 g IV DAILY Qty: 24 0RF levothyroxine 75 mcg tablet 75 mcg PO DAILY@13 ascorbic acid (vitamin C) [Vitamin C] 500 mg Tablet 1,000 mg PO BID Discharge Orders: Discharge ED (Routine); Ordered 07/25/24 Ordered By: Robe Charles Referrals: Chioma Germain [Primary Care Provider] - 1 week Patient Instructions: Hemoptysis Activity Restrictions/Additional Instructions: Your evaluation in the ER that included lab work, and chest CT did not show any acute cause of your bleeding. Your blood volume is good and normal. Please hold your Eliquis for the next 2 days and if the bleeding stops then restart it. Otherwise please follow-up with your family practice physician within next 7 days for further evaluation and treatment. If the bleeding continues or worsens please feel free to return to the ER. Coding Level of Care Code ED Roads Supervisor for Guanako Lemon
[2024-07-25 02:28] VITALS: BP 177/74; PULSE 54; RESP 20; O2SAT 96; BMI 18.0
[2024-07-25 02:31] VITALS: BP 177/74; PULSE 66; O2SAT 95
[2024-07-25 02:36] LABS: Basophils % 0.4 %; Eosinophils # 0.7 10^3/uL (0.0-0.8); Hematocrit 40.5 % (36-47); Lymphocytes # 1.7 10^3/uL (0.8-4.8); Lymphocytes % 22.3 %; Mean Corpuscular HGB Conc 31.9 g/dL (30-55); Mean Platelet Volume 10.6 fL (7.4-10.4); Monocytes # 0.6 10^3/uL (0.2-0.9); Monocytes % 7.8 %; Neutrophils % 59.2 %; Nucleated Red Blood Cells % 0 %; Platelet Count 201 10^3/cmm (157-399); Red Blood Count 4.45 10^6/uL (3.85-5.65); Red Cell Distribution Width 13.9 % (12.1-15.1); White Blood Count 7.43 10^3/uL (3.29-11.43)
[2024-07-25 02:49] LABS: INR 1.15 (0.8-1.2)
[2024-07-25 02:58] LABS: Alanine Aminotransferase 12 U/L (0-33); Albumin Level 4.1 g/dL (3.5-5.2); Alkaline Phosphatase 67 U/L (35-105); Anion Gap 11.2 (5-19); Aspartate Amino Transferase 22 U/L (0-32); Blood Urea Nitrogen 23 mg/dL (8-23); Carbon Dioxide 31 mmol/L (22-29); Chloride 103 mmol/L (98-107); Creatinine Clr Calc Pharmacy 45.2261; Globulin 2.1 g/dL (1.3-4.6); Glucose 93 mg/dL (65-115); Osmolality Calculated 295 mOsm/kg (285-295); Potassium 4.2 mmol/L (3.5-5.1); Sodium 141 mmol/L (136-145); Total Bilirubin 0.6 mg/dL (0.15-1.2); Total Protein 6.2 g/dL (6.6-8.7)
[2024-07-25] MEDS: iohexol 350 mg/mL 500 mL Btl (per mL) IV (03:27)
[2024-07-25 03:31] VITALS: BP 173/90; PULSE 69; O2SAT 97
[2024-07-25 03:38] LABS: Bilirubin Urine Negative (Negative); Blood Urine Trace (Negative); Glucose Urine UA Negative (Normal); Ketones Urine Negative (Negative); Leukocyte Esterase Urine Negative (Negative); Nitrate Urine Negative (Negative); Protein Urine Negative (Negative); Specific Gravity, Urine 1.008 (1.005-1.030); Urine Appearance Clear (CLEAR); Urine Color Yellow (Yellow); pH Urine 7.5 (5-7)
[2024-07-25 03:43] LABS: Add Urine Microscopic? YES; Bacteria Urine None Seen /hpf; Hyaline Casts Urine 0-4 /lpf; Squamous Epithelial Cell Urine 0-5 /hpf (0-5); WBC Urine 0-5 /hpf (0-5)
[2024-07-25 04:30] VITALS: BP 162/63; PULSE 74; O2SAT 96
[2024-07-25 05:00] VITALS: PULSE 68; O2SAT 95
[2024-07-25 05:41] VITALS: BP 168/87; PULSE 66; O2SAT 97
== END 2024-07-25 05:41 | disposition home or self-care (01) ==
PROVIDERS: Emergency Provider Emergency Medicine; PCP Registered Nurse
DX: R04.2 Hemoptysis (principal); Z79.01 Long term (current) use of anticoagulants; Z86.711 Personal history of pulmonary embolism
CPT/HCPCS: 71275; 80053; 81001; 85025; 85610; 99285

== ENCOUNTER 2024-07-25 16:03 | Emergency (ER) | payer MEDICARE, SELFPAY ==
[2024-07-25 16:08] VITALS: BP 130/69; PULSE 74; RESP 16; TEMP 36.6; O2SAT 94
[2024-07-25 17:04] LABS: Basophils % 0.3 %; Eosinophils # 0.5 10^3/uL (0.0-0.8); Eosinophils % 5.8 %; Hematocrit 40.4 % (36-47); Lymphocytes # 1.8 10^3/uL (0.8-4.8); Lymphocytes % 20.2 %; Mean Corpuscular HGB Conc 32.4 g/dL (30-55); Mean Corpuscular Hemoglobin 29.4 pg (27-33); Mean Corpuscular Volume 90.6 fl (85-98); Mean Platelet Volume 10.5 fL (7.4-10.4); Monocytes # 0.8 10^3/uL (0.2-0.9); Monocytes % 8.9 %; Neutrophils # 5.89 10^3/uL (1.8-7.7); Neutrophils % 64.6 %; Nucleated Red Blood Cells % 0 %; Platelet Count 211 10^3/cmm (157-399); Red Blood Count 4.46 10^6/uL (3.85-5.65); Red Cell Distribution Width 14.2 % (12.1-15.1); White Blood Count 9.12 10^3/uL (3.29-11.43)
[2024-07-25 17:21] LABS: Blood Urea Nitrogen 29 mg/dL (8-23); Creatinine Clr Calc Pharmacy 33.1111; Total Bilirubin 0.4 mg/dL (0.15-1.2)
--- NOTE | 2024-07-25 18:37 | CTR_ITS ---
PROCEDURE INFORMATION: Exam: CT Abdomen And Pelvis With Contrast Exam date and time: 07/25/2024 7:21 PM Age: 88 years old Clinical indication: C/O lower abd pain with hemoptysis. Patient had chest cta negative for pe at 0300 hours today. Anticoagulated. on eliquis TECHNIQUE: Imaging protocol: Computed tomography of the abdomen and pelvis with contrast. Radiation optimization: All CT scans at this facility use at least one of these dose optimization techniques: automated exposure control; mA and/or kV adjustment per patient size (includes targeted exams where dose is matched to clinical indication); or iterative reconstruction. Contrast material: OMNI 350; Contrast volume: 80 ml; Contrast route: INTRAVENOUS (IV); COMPARISON: CT ang ches abdpel [id number] 12/15/2022 11:42 AM. Comparison is made to a CT angiogram of the chest dated 07/25/2024. RADIATION DOSE METRICS: Total DLP (mGy-cm): 313.99 FINDINGS: Lungs: Please see the CT scan of the thorax for description of the lung bases. Heart: Cardiomegaly. Liver: Normal. No mass. Gallbladder and biliary ducts: Normal. No calcified stones. No ductal dilation. Pancreas: Normal. No ductal dilation. Spleen: Normal. No splenomegaly. Adrenal glands: Normal. No mass. Kidneys and ureters: There are bilateral renal cysts with benign features the larger of which measures 2.9 cm in the craniocaudad dimension of the lateral aspect of the right kidney. Follow-up is not necessary. Stomach and bowel: Colonic constipation is present. There is diverticulosis of the colon without evidence of diverticulitis. Appendix: A normal appendix is identified. Intraperitoneal space: Unremarkable. No free air. No significant fluid collection. Vasculature: Multivessel atherosclerotic disease. 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 Lymph nodes: Unremarkable. No enlarged lymph nodes. Urinary bladder: Unremarkable as visualized. Reproductive: Uterus not visualized. Bones/joints: There are severe degenerative changes across the hip joint. Moderate degenerative changes extend across the sacroiliac joints and pubic symphysis. There are moderate to severe degenerative changes in the visualized spine most prominent in the lower lumbar spine. Multilevel lumbar broad-based disc osteophyte complexes contribute to bilateral neural foramina narrowing. Soft tissues: Unremarkable. CT/CT abdomen pelvis w con* [id number] IMPRESSION: 1. Colonic constipation is present. 2. Cardiomegaly. 3. Multivessel atherosclerotic disease. 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
[2024-07-25 19:14] VITALS: BP 139/87; PULSE 72; RESP 17; O2SAT 92
[2024-07-25] MEDS: iohexol 350 mg/mL 500 mL Btl (per mL) IV (19:24)
[2024-07-25 19:56] LABS: Alanine Aminotransferase 14 U/L (0-33); Alkaline Phosphatase 67 U/L (35-105); Anion Gap 17.7 (5-19); Aspartate Amino Transferase 21 U/L (0-32); Calcium 9.6 mg/dL (8.5-10.5); Carbon Dioxide 25 mmol/L (22-29); Chloride 102 mmol/L (98-107); Globulin 2.7 g/dL (1.3-4.6); Glucose 100 mg/dL (65-115); Osmolality Calculated 296 mOsm/kg (285-295); Potassium 4.7 mmol/L (3.5-5.1); Sodium 140 mmol/L (136-145); Total Protein 6.7 g/dL (6.6-8.7)
[2024-07-25 20:00] VITALS: BP 174/75; PULSE 75; RESP 17; O2SAT 95
[2024-07-25 20:06] LABS: NT Pro B Type Natriuretic Pept 394 pg/mL (0-450)
--- NOTE | 2024-07-25 20:30 | W.ED.GENADLT ---
HPI - General Adult General: Chief complaint: General Medical Stated complaint: Coughing up blood Time Seen by Provider: 07/25/24 18:32 History of Present Illness: Patient presents back to the ER after being seen this morning for coughing up blood. Patient not take her blood thinner this morning. Patient still having bloody sputum. Patient reports is better but she is having some mild lower abdominal pain. Patient [place] any nausea vomiting hematemesis, diarrhea constipation melena hematochezia Related Data Home Medications Medication Instructions Recorded Confirmed losartan 100 mg tablet 100 mg PO BEDTIME 03/05/20 11/21/23 polyethylene glycol 3350 17 gram 17 g PO BEDTIME 03/31/20 11/21/23 oral powder packet (Miralax) ascorbic acid (vitamin C) 500 mg 1,000 mg PO BID 09/20/22 11/21/23 tablet (Vitamin C) levothyroxine 75 mcg tablet 75 mcg PO DAILY@13 09/20/22 11/21/23 apixaban 5 mg (74 tabs) tablets in 5 mg PO BID 12/14/22 11/21/23 a dose pack (Travelmenu DVT-PE Treat 30D Start) Previous Rx's Medication Instructions Recorded methenamine hippurate 1 gram tablet 1 g PO BID #180 tabs 10/19/22 benzonatate 100 mg capsule 100 mg PO TID PRN Cough #14 caps 12/21/22 ceftriaxone 2 gram/50 mL in 2 g (50 mL) IV DAILY #24 ea 12/21/22 dextrose (iso-osm) intravenous piggyback tiotropium bromide 1.25 2 puff inhalation Q24H #4 grams 01/03/24 mcg/actuation mist for inhalation (Spiriva Respimat) Allergies Allergy/AdvReac Type Severity Reaction Status Date / Time Sulfa (Sulfonamide Allergy Severe swelling Verified 07/25/24 16:14 Antibiotics) of throat nitrofurantoin Allergy Unknown Verified 07/25/24 16:14 [From Macrobid] Review of Systems General: Reports: 10 or more systems reviewed and unremarkable except in HPI and below PFSH ED PFSH: Medical History Elevated bilirubin Pulmonary embolism Pulmonary embolism Hypothyroidism Hypertension Recurrent UTI Cystitis cystica Chronic UTI Surgical History H/O eye surgery right H/O vaginal surgery 08/04/2020- vaginal sling revision performed by Dr. Smalls at [facility] H/O: hysterectomy 1978 H/O bladder repair surgery Mesh erosion excision, anterior colporrhaphy augmented with allograft performed by Dr. Smalls at [facility] on 03/31/2020 Family History Sister Lung cancer Hypertension Stroke Thyroid disease Ovarian cancer, Onset Age: 64 Brother Hypertension Stroke Mother , at age 95 No problems noted. Father , at age 32 Drowning Denies family history of Colon cancer Diabetes Clotting disorder Hyperlipidemia Breast cancer Anesthesia complication Bleeding disorder Uterine cancer Social History Smoking and tobacco/nicotine status: current every day tobacco/nicotine user cigarettes Packs smoked per day: 0.5 Alcohol intake: never Substance/Drug Use: never Household members: spouse Marital status: Current occupational status: retired Physical Exam Const: COMMON NORMALS: no acute distress, average body habitus, patient oriented x3, no limitations, healthy appearing, alert and well nourished HENMT: COMMON NORMALS: normocephalic, atraumatic, hearing grossly normal bilaterally, external ears normal, Normal external nose present and moist oral mucous membranes HEAD & SCALP: normocephalic and atraumatic NOSE: Normal external nose present EXTERNAL EAR: Yes external ears normal Neck/C-Spine: COMMON NORMALS: no JVD Chest: COMMONS NORMALS: normal inspection of the chest and normal palpation of entire chest wall Resp: COMMON NORMALS: normal respiratory effort, No retractions, No use of accessory muscles and clear to auscultation bilaterally AUSCULTATION: clear to auscultation bilaterally Cardio: COMMON NORMALS: no JVD, regular rate, regular rhythm, S1 normal heart sound present, S2 normal heart sound present, No gallops present (Cardio), No clicks present (Cardio), No murmurs present (Cardio) and No rub (Cardio) RATE: regular rate RHYTHM: regular rhythm HEART SOUNDS: S1 normal heart sound present and S2 normal heart sound present GI: COMMON NORMALS: Normal to inspection, nondistended, normoactive bowel sounds present, Soft to palpation, non-tender, No hepatosplenomegaly present and no masses PALPATION: Yes Soft to palpation and Yes No hepatosplenomegaly present Neuro: COMMON NORMALS: patient oriented x3 SENSORIUM/ORIENTATION: Yes alert Course Vital Signs: Vital signs: Vital Signs Temperature 97.9 F 07/25/24 16:08 Pulse Rate 75 07/25/24 20:00 Respiratory Rate 17 07/25/24 20:00 Blood Pressure 174/75 07/25/24 20:00 Pulse Oximetry 95 07/25/24 20:00 Oxygen Delivery Me thod Room Air 07/25/24 19:14 MDM - General Adult Medical Decision Making Patient to repeat lab work as well as a contrasted CT scan of the abdomen pelvis all of which was stable and benign. Patient did not spit up or vomit up any type of bloody product during her stay here in the ER. It was reinforced that patient should be off her blood thinner for the next couple days until she stops getting up blood. Patient should also follow-up with her PCP within the next 7 days for further evaluation and treatment. Medical Records I reviewed the patient's medical records. Lab Data I reviewed the patient's lab results. 07/25/24 16:59 07/25/24 16:59 Radiology Impressions Abdomen/Pelvis CT 07/25/24 18:37 IMPRESSION: 1. Colonic constipation is present. 2. Cardiomegaly. 3. Multivessel atherosclerotic disease. 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 Laboratory Results WBC 9.12 10^3/uL (3.29-11.43) 07/25/24 16:59 RBC 4.46 10^6/uL (3.85-5.65) 07/25/24 16:59 Hgb 13.10 g/dL (11.27-16.99) 07/25/24 16:59 Hct 40.4 % (36-47) 07/25/24 16:59 MCV 90.6 fl (85-98) 07/25/24 16:59 MCH 29.4 pg (27-33) 07/25/24 16:59 MCHC 32.4 g/dL (30-55) 07/25/24 16:59 RDW 14.2 % (12.1-15.1) 07/25/24 16:59 Plt Count 211 10^3/cmm (157-399) 07/25/24 16:59 MPV 10.5 fL (7.4-10.4) H 07/25/24 16:59 Neut % (Auto) 64.6 % 07/25/24 16:59 Lymph % (Auto) 20.2 % 07/25/24 16:59 [place] % (Auto) 8.9 % 07/25/24 16:59 Eos % (Auto) 5.8 % 07/25/24 16:59 Baso % (Auto) 0.3 % 07/25/24 16:59 Neut # (Auto) 5.89 10^3/uL (1.8-7.7) 07/25/24 16:59 Lymph # (Auto) 1.8 10^3/uL (0.8-4.8) 07/25/24 16:59 [place] # (Auto) 0.8 10^3/uL (0.2-0.9) 07/25/24 16:59 Eos # (Auto) 0.5 10^3/uL (0.0-0.8) 07/25/24 16:59 Baso # (Auto) 0.0 10^3/uL (0.0-0.1) 07/25/24 16:59 Nucleated RBC % (auto) 0 % 07/25/24 16:59 Nucleated RBCs # 0.0 /100WBC 07/25/24 16:59 Sodium 140 mmol/L (136-145) 07/25/24 16:59 Potassium 4.7 mmol/L (3.5-5.1) 07/25/24 16:59 Chloride 102 mmol/L (98-107) 07/25/24 16:59 Carbon Dioxide 25 mmol/L (22-29) 07/25/24 16:59 Anion Gap 17.7 (5-19) 07/25/24 16:59 BUN 29 mg/dL (8-23) H 07/25/24 16:59 Creatinine 0.9 mg/dL (0.5-0.9) 07/25/24 16:59 GFR Calculation Not Reportable 07/25/24 16:59 Glucose 100 mg/dL (65-115) 07/25/24 16:59 Calculated Osmolality 296 mOsm/kg (285-295) H 07/25/24 16:59 Calcium 9.6 mg/dL (8.5-10.5) 07/25/24 16:59 Total Bilirubin 0.4 mg/dL (0.15-1.2) 07/25/24 16:59 AST 21 U/L (0-32) 07/25/24 16:59 ALT 14 U/L (0-33) 07/25/24 16:59 Alkaline Phosphatase 67 U/L (35-105) 07/25/24 16:59 NT-Pro-B Natriuret Pep 394 pg/mL (0-450) 07/25/24 16:59 Total Protein 6.7 g/dL (6.6-8.7) 07/25/24 16:59 Albumin 4.0 g/dL (3.5-5.2) 07/25/24 16:59 Globulin 2.7 g/dL (1.3-4.6) 07/25/24 16:59 All radiology interpretation(s) finalized by discharge Discharge Plan Discharge Patient Disposition: Home Clinical Impression: Hemoptysis Condition: Stable Prescriptions: No Action losartan 100 mg tablet 100 mg PO BEDTIME methenamine hippurate 1 gram tablet 1 g PO BID Qty: 180 3RF Rx Instructions: Take 1000 mg of vitamin C with each dose of methenamine Spiriva Respimat 1.25 mcg/actuation mist 2 puff inhalation Q24H Qty: 4 3RF polyethylene glycol 3350 [Miralax] 17 gram Powder In Packet 17 g PO BEDTIME Eliquis DVT-PE Treat 30D Start 5 mg (74 tabs) tablets,dose pack 5 mg PO BID benzonatate 100 mg Capsule 100 mg PO TID PRN (Reason: Cough) Qty: 14 0RF ceftriaxone in dextrose,iso-os 2 gram/50 mL piggyback 2 g IV DAILY Qty: 24 0RF levothyroxine 75 mcg tablet 75 mcg PO DAILY@13 ascorbic acid (vitamin C) [Vitamin C] 500 mg Tablet 1,000 mg PO BID Discharge Orders: Discharge ED (Routine); Ordered 07/25/24 Ordered By: Robe Charles Referrals: Chioma Germain [Primary Care Provider] - 1 week Patient Instructions: Hemoptysis Activity Restrictions/Additional Instructions: Your evaluation in the ER that included lab work, and abdomen and pelvis CT did not show any acute cause of your bleeding. Your blood volume is good and normal. Please hold your Eliquis for the next 2 days and if the bleeding stops then restart it. Otherwise please follow-up with your family practice physician within next 7 days for further evaluation and treatment. If the bleeding continues or worsens please feel free to return to the ER. Coding Level of Care Code ED Environmental Conservation Officer for Guanako Lemon
[2024-07-25 21:22] VITALS: BP 169/92; PULSE 70; RESP 17; O2SAT 93
[2024-07-25 21:45] VITALS: BP 167/91; PULSE 64; O2SAT 94
== END 2024-07-25 21:52 | disposition home or self-care (01) ==
PROVIDERS: Emergency Medicine; Emergency Provider Emergency Medicine; PCP Registered Nurse
DX: R04.2 Hemoptysis (principal); Z79.01 Long term (current) use of anticoagulants
CPT/HCPCS: 36415; 74177; 80053; 83880; 85025; 99285